=== PATIENT | female | born 1935 | race Caucasian/White ===

== ENCOUNTER 2016-10-17 15:26 | Inpatient (IN) | payer OTHER, MEDICAID ==
--- NOTE | 2016-10-17 15:32 | EDPHY ---
H & P Time Seen by Provider: 10/17/16 15:28 HPI/ROS: CHIEF COMPLAINT: Drooling, slurred speech HISTORY OF PRESENT ILLNESS: The patient is a 80-year-old female with multiple medical problems who presents to the emergency department complaining of drooling and slurred speech. Her symptoms started at 2:30 p.m.. She was sitting on her daughter's couch. She began to have a change in her speech. Patient felt as though she was fine and did not want to come to the hospital. Her daughter insisted. Patient's symptoms have resolved. The patient states her speech is better. Patient denies other complaints. She has no recent falls. No headache or neck pain. No weakness or numbness. Patient states I have had "a lot of strokes." However, she denies any deficits. No recent illnesses. No chest pain or shortness of breath. Patient chronically has a swollen left lower extremity "because of cervical cancer." REVIEW OF SYSTEMS: My complete review of systems is negative except as mentioned in the HPI Past Medical/Surgical History: Includes diabetes, coronary artery disease, recurrent UTI, hypertension, irregular heartbeat, osteoporosis, cervical cancer Past surgical history: Includes aortic valve replacement, CABG, spinal surgery x4, cholecystectomy, appendectomy, hysterectomy, aortic valve replacement Social history: Patient is a former smoker. Smoking Status: Former smoker Physical Exam: Vitals noted GENERAL: Well-appearing, in no acute distress, alert. HEENT: Eyes normal to inspection, normal pharynx, no signs of dehydration. NECK: No thyromegaly, no lymphadenopathy, supple. RESPIRATORY: Clear to auscultation bilaterally, no rales, rhonchi or wheezing. CVS: Regular rate and rhythm, no rubs, or gallops. Patient has a notable murmur. She states she has a murmur baseline. ABDOMEN: Soft, nontender, nondistended, no organomegaly. BACK: Normal to inspection, no CVA tenderness. SKIN: Normal color, no rash, warm, dry. No pallor. EXTREMITIES: patient has left lower extremity pedal edema. (patient states this is at baseline). No calf tenderness, No cords, no joint swelling. NEURO/PSYCH: Normal. Higher functions: Alert and Oriented x3. Normal speech and cognition. Normal mood and affect. Cranial nerves: Normal as tested. Cerebellar: Normal as tested. Good finger to nose, good [id number], normal gait. Peripheral exam: Normal motor exam. Normal sensation. Normal reflexes. Constitutional: Initial Vital Signs Temperature (C) 36.6 C 10/17/16 15:26 Heart Rate 67 10/17/16 15:26 Respiratory Rate 16 10/17/16 15:26 Blood Pressure 155/91 H 10/17/16 15:26 O2 Sat (%) 92 10/17/16 15:26 O2 Delivery Mode Room Air O2 (L/minute) 2 Allergies/Adverse Reactions: codeine [Codeine] Allergy (Intermediate, Verified 10/17/16 15:28) Other-Enter Comments Home Medications: Medication Instructions Recorded Lisinopril [Zestril 5 mg (*)] 5 mg PO DAILY 03/16/15 Carvedilol [Coreg (*)] 6.25 mg PO BIDMEAL 10/17/16 Cephalexin [Keflex (*)] 500 mg PO BID 10/17/16 Herbals/Supplements -Info Only 1 ea PO DAILY 10/17/16 Medical Decision Making - Diagnostics EKG Interpretation: Sinus rhythm at 66. VPC. Normal axis. Normal intervals. Q-wave in II, III, aVF. Flipped T-wave in III. I compared this with a previous EKG from 08/30/2015. It is unchanged. ED Course/Re-evaluation: In the emergency department an IV was placed. Patient had laboratory studies obtained. EKG and head CT were ordered. I discussed the plan with the patient and answered all her questions. CT head: Please refer the dictated report by Dr. Jakub Nunez. No acute disease noted. I discussed the results with the patient. On recheck the patient had no focal neurologic deficits. I discussed case with Dr. Ovalles. The patient will be admitted for further evaluation of her symptoms. Differential Diagnosis: My differential includes but is not limited to ischemic CVA, hemorrhagic CVA, dissection, aneurysm, dysrhythmia, electrolyte abnormality, sugar abnormality, ACS, acute NC - Data Points Laboratory Results: Laboratory Results 10/17/16 15:35 10/17/16 15:35 10/17/16 10/17/16 10/17/16 15:35 15:35 15:35 WBC 6.86 10^3/uL 10^3/uL (3.80-9.50) RBC 4.63 10^6/uL 10^6/uL (4.18-5.33) Hgb 14.7 g/dL g/dL (12.6-16.3) POC Hgb Hct 43.6 % % (38.0-47.0) POC Hct MCV 94.2 fL fL (81.5-99.8) MCH 31.7 pg pg (27.9-34.1) MCHC 33.7 g/dL g/dL (32.4-36.7) RDW 14.1 % % (11.5-15.2) Plt Count 224 10^3/uL 10^3/uL (150-400) MPV 9.1 fL fL (8.7-11.7) Neut % (Auto) 52.1 % % (39.3-74.2) Lymph % (Auto) 37.8 % % (15.0-45.0) Winn % (Auto) 8.0 % % (4.5-13.0) Eos % (Auto) 1.6 % % (0.6-7.6) Baso % (Auto) 0.4 % % (0.3-1.7) Nucleat RBC Rel Count 0.0 % % (0.0-0.2) Absolute Neuts (auto) 3.57 10^3/uL 10^3/uL (1.70-6.50) Absolute Lymphs (auto) 2.59 10^3/uL 10^3/uL (1.00-3.00) Absolute Monos (auto) 0.55 10^3/uL 10^3/uL (0.30-0.80) Absolute Eos (auto) 0.11 10^3/uL 10^3/uL (0.03-0.40) Absolute Basos (auto) 0.03 10^3/uL 10^3/uL (0.02-0.10) Absolute Nucleated RBC 0.00 10^3/uL 10^3/uL (0-0.01) Immature Gran % 0.1 % % (0.0-1.1) Immature Gran # 0.01 10^3/uL 10^3/uL (0.00-0.10) PT 13.5 SEC SEC (12.0-15.0) INR 1.04 (0.83-1.16) APTT 26.7 SEC SEC (23.0-38.0) POC Sodium Sodium 137 mEq/L mEq/L (134-144) POC Potassium Potassium 4.1 mEq/L mEq/L (3.5-5.2) POC Chloride Chloride 102 mEq/L mEq/L (97-110) Carbon Dioxide 25 mEq/l mEq/l (22-31) Anion Gap 10 mEq/L mEq/L (8-16) POC BUN BUN 22 mg/dL mg/dL (7-23) Creatinine 1.0 mg/dL mg/dL (0.6-1.0) POC Creatinine Estimated GFR 54 Glucose 137 mg/dL H mg/dL (70-100) POC Glucose Calcium 9.2 mg/dL mg/dL (8.5-10.4) Troponin I < 0.012 ng/mL ng/mL (0-0.034) 10/17/16 15:31 WBC RBC Hgb POC Hgb 16.0 gm/dL H gm/dL (12.3-15.9) Hct POC Hct 47 % % (35.5-47.5) MCV MCH MCHC RDW Plt Count MPV Neut % (Auto) Lymph % (Auto) Winn % (Auto) Eos % (Auto) Baso % (Auto) Nucleat RBC Rel Count Absolute Neuts (auto) Absolute Lymphs (auto) Absolute Monos (auto) Absolute Eos (auto) Absolute Basos (auto) Absolute Nucleated RBC Immature Gran % Immature Gran # PT INR APTT POC Sodium 140 mEq/L mEq/L (134-144) Sodium POC Potassium 3.9 mEq/L mEq/L (3.3-5.0) Potassium POC Chloride 101 mEq/L mEq/L (96-108) Chloride Carbon Dioxide Anion Gap POC BUN 23 mg/dL mg/dL (7-23) BUN Creatinine POC Creatinine 1.1 mg/dL mg/dL (0.6-1.2) Estimated GFR Glucose POC Glucose 140 mg/dL H mg/dL (70-100) Calcium Troponin I Medications Given: Discontinued Medications Aspirin (Aspirin) 324 mg PO EDNOW ONE Stop: 10/17/16 16:37 Last Admin: 10/17/16 16:48 Dose: 324 mg Point of Care Test Results: 10/17/16 15:31 POC Sodium 140 POC Potassium 3.9 POC Chloride 101 POC BUN 23 POC Creatinine 1.1 POC Glucose 140 H Departure - Departure Disposition: [facility] Inpatient Acute Clinical Impression: Transient cerebral ischemia Qualifiers: Transient cerebral ischemia type: other Qualified Code(s): G45.8 - Other transient cerebral ischemic attacks and related syndromes Condition: Good
--- NOTE | 2016-10-17 15:49 | CPEKG ---
Heart Rate: 66 RR Interval: 909 P-R Interval: 184 QRSD Interval: 102 QT Interval: 440 QTC Interval: 461 P [place]: 55 QRS [place]: 56 T Wave [place]: -37 EKG Severity - ABNORMAL ECG - EKG Impression: SINUS RHYTHM EKG Impression: VENTRICULAR PREMATURE COMPLEX EKG Impression: INFERIOR INFARCT, AGE INDETERMINATE EKG Impression: NONSPECIFIC T ABNORMALITIES, LATERAL LEADS Electronically Signed By: Darinel Amado 17-Oct-2016 19:13:21
[2016-10-17 15:58] LABS: ANION GAP 10 mEq/L (8-16); CALCIUM 9.2 mg/dL (8.5-10.4); CARBON DIOXIDE 25 mEq/l (22-31); CHLORIDE 102 mEq/L (97-110); GLOMERULAR FILTRATION RATE 54; GLUCOSE 137 mg/dL (70-100); POTASSIUM 4.1 mEq/L (3.5-5.2); SODIUM 137 mEq/L (134-144)
[2016-10-17 16:01] LABS: % IMMATURE GRANULYOCYTES 0.1 % (0.0-1.1); ABSOLUTE IMMATURE GRANULOCYTES 0.01 10^3/uL (0.00-0.10); ADD DIFF? NO; ADD MORPH? NO; ADD SCAN? NO; ATYPICAL LYMPHOCYTE FLAG 10 (0-99); FRAGMENT RBC FLAG 0 (0-99); HEMATOCRIT 43.6 % (38.0-47.0); HEMOGLOBIN 14.7 g/dL (12.6-16.3); LEFT SHIFT FLG 0 (0-99); LIPEMIA HEMOLYSIS FLAG 80 (0-99); MEAN CELL HEMOGLOBIN 31.7 pg (27.9-34.1); MEAN CELL HEMOGLOBIN CONCENTR. 33.7 g/dL (32.4-36.7); MEAN CELL VOLUME 94.2 fL (81.5-99.8); MEAN PLATELET VOLUME 9.1 fL (8.7-11.7); PLATELET CLUMPS FLAG 10 (0-99); PLATELET COUNT 224 10^3/uL (150-400); RED BLOOD CELL COUNT 4.63 10^6/uL (4.18-5.33); RED CELL DISTRIBUTION WIDTH 14.1 % (11.5-15.2)
[2016-10-17 16:04] LABS: INR 1.04 (0.83-1.16); PROTIME(PATIENT) 13.5 SEC (12.0-15.0)
[2016-10-17 16:05] LABS: APTT 26.7 SEC (23.0-38.0)
[2016-10-17 16:10] LABS: TROPONIN I < 0.012 ng/mL (0-0.034)
[2016-10-17] MEDS ORDERED: ASPIRIN 81 MG CHEWABLE TAB PO ONE (16:36)
[2016-10-17 18:30] LABS: CHOLESTEROL 200 mg/dL (140-220); CHOLESTEROL/HDL RATIO 3.45 RATIO (1.00-4.44); HIGH DENSITY LIPOPROTEIN 58 mg/dL (40-85); LOW DENSITY LIPOPROTEIN 110 mg/dL (80-100); NON-HIGH DENSITY LIPOPROTEIN 142 mg/dL (90-129); TRIGLYCERIDE 161 mg/dL (35-135); VERY LOW DENSITY LIPOPROTEINS 32 mg/dL (8-25)
[2016-10-17 19:03] LABS: HEMOGLOBIN A1C 6.7 % (4.0-6.0)
--- NOTE | 2016-10-17 19:13 | GHP ---
DATE OF ADMISSION: 10/17/2016 CHIEF COMPLAINT: Problem speaking. HISTORY OF PRESENT ILLNESS: This is a 80-year-old female with prior history of CVA in 2009 as well as a bovine aortic valve replacement in 2010 who presented to the emergency department today after she had trouble speaking at 2:30 this afternoon. Her granddaughter states that the patient was unable to get words out and also was noted to have some drooling out of the left side of her mouth. She was not noted to have any arm or leg weakness. Her symptoms lasted for minutes then self-resolved. She denies any previous episodes like this. Other than her stroke in 2009. She denies having any palpitations. She does not typically take an aspirin at home. She is not on anticoagulation. PAST MEDICAL HISTORY: 1. CVA in 2009. 2. Hypertension. 3. Aortic stenosis. 4. Coronary artery disease. 5. Diabetes. 6. Recurrent urinary tract infections. 7. Cervical cancer. PAST SURGICAL HISTORY: 1. A bovine aortic valve replacement in 2010 and CABG done at that time. 2. L3 vertebral kyphoplasty. 3. L1 kyphoplasty. 4. Cervical cancer resection. HOME MEDICATIONS: Were reviewed. Refer to [employer] for details. ALLERGIES: Codeine. SOCIAL HISTORY: The patient quit smoking in 1996. She denies any alcohol use. She currently lives at [facility] in [facility]. FAMILY HISTORY: Reviewed and noncontributory. REVIEW OF SYSTEMS: Comprehensive 10-point review of systems was done that was negative, except for as mentioned in the HPI and below. : The patient denies any urinary tract complaints such as dysuria or frequency. PHYSICAL EXAM: VITAL SIGNS: Blood pressure 115/96, pulse of 67, respiratory rate 19, O2 saturation 97% on 2 L, temperature afebrile. GENERAL: No acute distress. HEAD: Normocephalic, atraumatic. EYES: PERRLA. Sclerae anicteric. MOUTH: Moist mucous membranes. NECK: Supple. No lymphadenopathy. CARDIOVASCULAR: S1-S2 with systolic murmur. There is no JVD. There is left leg edema right leg is without edema. There are no carotid bruits. PULMONARY: Lungs are clear to auscultation and percussion bilaterally. There are no wheezes, rales, or rhonchi. Normal respiratory effort. ABDOMEN: Soft, nontender, nondistended. No guarding or rebound tenderness. No hepatosplenomegaly. EXTREMITIES: No clubbing or cyanosis. NEURO: Cranial nerves 2-12 grossly intact. Face is symmetric with no asymmetry. Speech is fluent. There is no pronator drift. 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 Muscle strength 5/5 in flexion and extension at the hip and at the foot. SKIN: Clear. No rashes. DIAGNOSTICS: WBC 6.8, hemoglobin 14.7, hematocrit 43.6, platelets 224. Coags were reviewed and unremarkable. Sodium 137, potassium 4.1, chloride 102, CO2 25 , BUN 22, creatinine 1, glucose 137. Troponin was negative. Triglycerides 161 , total cholesterol 200, LDL cholesterol 110, HDL cholesterol 58. Head CT, which I visualized and interpreted, as well as reviewed the radiology report, that showed mild atrophy with no acute hemorrhage, hydrocephalus, or mass effect. There was no evidence for acute infarct. ASSESSMENT AND PLAN: This is a 80-year-old female presenting with: 1. Transient drooling as well as difficulties with speech suspicious for a transient ischemic attack versus mild CVA. However, her symptoms have resolved at the time of my exam. a. Plan: The patient will be placed on observation, where she will be continued on aspirin. An echocardiogram has been ordered to evaluate for cardiac thrombus. We will also obtain a carotid Doppler to evaluate for carotid artery stenosis. She will be monitored on telemetry for arrhythmias. Her LDL is not at goal. Since she is diabetic, I would recommend an LDL of under 100. She will be started on a statin. We will continue aspirin therapy, and I have consulted Neurology to see her in the morning. 2. Reported urinary tract infection diagnosed as an outpatient. a. Plan: Currently, the patient is asymptomatic without any urinary tract symptoms. We will defer starting antibiotics but will reconsider if she developed any fevers, chills, or other signs of urinary tract infection. 3. History of bovine aortic valve replacement and coronary artery disease. a. Plan: Once again, we will obtain an echocardiogram and monitor. 4. History of hypertension. a. Plan: Continue home medications. 5. Unilateral left leg edema (chronic per patient) /[id number]/MODL MTDD
[2016-10-17] MEDS: ATORVASTATIN CALCIUM 20 MG TAB PO SCH (19:39)
[2016-10-17] MEDS ORDERED: guaiFENesin 600 MG TAB.ER PO PRN (23:21)
[2016-10-18] MEDS: ATORVASTATIN CALCIUM 20 MG TAB PO SCH (08:38)
[2016-10-18] MEDS: LISINOPRIL 5 MG TAB PO SCH (08:38)
[2016-10-18] MEDS: CARVEDILOL 6.25 MG TAB PO SCH ×2 (08:38→18:06)
[2016-10-18] MEDS ORDERED: Herbals/Supplements -Info Only PO SCH (09:00)
[2016-10-18] MEDS ORDERED: ASPIRIN 81 MG CHEWABLE TAB PO SCH (09:00)
[2016-10-18] MEDS ORDERED: IOPAMIDOL (ISOVUE-370) 150 ML BTL IV ONE (10:30)
--- NOTE | 2016-10-18 10:51 | HOSPPROG ---
Hospitalist Progress Note Assessment/Plan: TIA - She has had recurrent transient speech symptoms since admission. 70-80% stenosis on right ICA. Discussed case with Dr. Riley, Neurologist. May need vascular surgery consult. -check CTA and MRI -change ASA to Plavix -echo pending ?UTI - denies dysuria, pain or fevers, but does note increased urinary frequency. -check ua and Cx, treat if positive given symptoms Bovine AVR - echo pending CAD - no symptoms. Cont anti-platelet therapy, BB, statin. Hypertension - adequate control, cont Coreg and Lisinopril Full code DVT PPLX - Lovenox Dispo - change to inpt as needs further workup for TIA, transfer to med surg Subjective: Pt feels ok, reports urinary frequency. Also reports recurrent speech difficulty associated with drooling, which her daughter witnessed on 2 more occasions since admission. No fevers/chills. No abdominal pain, N/V. No dysuria. Objective: Vital Signs Temp Pulse Resp BP Pulse Ox 36.3 C 61 17 126/81 H 98 10/18/16 08:00 10/18/16 08:00 10/18/16 08:00 10/18/16 08:00 10/18/16 08:00 PT 13.5 SEC (12.0-15.0) 10/17/16 15:35 INR 1.04 (0.83-1.16) 10/17/16 15:35 - Physical Exam Constitutional: no apparent distress Eyes: PERRL Ears, Nose, Mouth, Throat: moist mucous membranes Cardiovascular: regular rate and rhythym, systolic murmur Respiratory: no respiratory distress, clear to auscultation Gastrointestinal: normoactive bowel sounds, soft, non-tender abdomen Skin: warm Musculoskeletal: full muscle strength Neurologic: AAOx3, CN II-XII Intact, other (no facial droop, pronator drift neg) Psychiatric: interacting appropriately ICD10 Worksheet Patient Problems: Problems Problem Status Onset Transient cerebral ischemia Acute CAD - Coronary arteriosclerosis Active Diabetes mellitus type 2 Active Dyslipidemia Active Essential hypertension Active Low back pain Active Replacement of aortic valve Active Chronic Disease Mgmt/Transitional Care Acute
--- NOTE | 2016-10-18 11:35 | GCON ---
DATE OF CONSULTATION: 10/18/2016 CHIEF COMPLAINT: Transient speech disturbance. HISTORY OF PRESENT ILLNESS: Dr. Barbara Coffey of the hospitalist service consulted Neurology for ev aluation of the patient's speech disturbance. The results of the evaluation were discussed directly with Dr. Coffey. This is a 80-year-old female with a prior history of stroke in 2009, hypertension, aortic stenosis w ith aortic valve replacement with bovine valve and CABG, and diabetes, who reports that on October 17, 2016, she was in her normal state of good health and then in the afternoon she had a few minutes of slurred speech and drooling out of her left mouth. Symptoms resolved. Her daughter witnessed them and brought her to the emergency room. In the emergency room, she had no symptoms and was admitted. Since admission, her daughter reports she has had 2 recurrent episodes of seconds to a minute or s o of speech disturbance and drooling out of her left mouth. The patient states she is generally not aware of these episodes. When I questioned her on what happened with the stroke in 2009, the patie nt states she cannot recall what symptoms she had other than she had a hard time remembering things at that time. She has had no residual symptoms since then. She does state she has been recently no ncompliant with her medications as she felt she was on too many medications and the patient subseque ntly stopped many of them on her own. REVIEW OF SYSTEMS: A 10-point review of systems is negative except for what is stated in the HPI. PAST MEDICAL HISTORY: Stroke in 2009, hypertension, aortic stenosis, coronary artery disease, diabe marielos, recurrent UTIs, cervical cancer. PAST SURGICAL HISTORY: AV bovine replacement and CABG, L1-L3 vertebroplasties. SOCIAL HISTORY: Quit smoking in 1996. FAMILY HISTORY: Noncontributory, daughter is alive. PHYSICAL EXAMINATION: VITAL SIGNS: Blood pressure 126/81, heart rate 61, respirations 17, saturati ng 98% on 2 L nasal cannula. Temperature 36.3 degrees Celsius. GENERAL: No acute distress. EYES: Funduscopic exam: Could not visualize optic discs. LUNGS: Clear to auscultation bilaterally. N o rhonchi or rales. HEART: Regular rate and rhythm. No murmurs. No carotid bruits auscultated. NEUROLOGIC: Mental status: Alert oriented to person, place, and date. Memory, attention, language and fund of knowledge all appear intact. Cranial nerves: Pupils equal, round, react to light. Vi sual kearns full to confrontation. Extraocular muscles intact. Bilateral face: Intact sensation a nd motor movement. Hearing intact to conversation. Uvula raises symmetrically. Tongue protrudes m idline. Traps 5/5 strength. Motor: Normal tone and strength in all 4 extremities. Sensory: All 4 extremities intact to light touch. No neglect. Reflexes: Bilateral brachioradialis 2/4. Coordi nation: Bilateral [id number], [id number] and rapid alternating movements are normal. Gait de ferred. NIH Stroke Scale is 0. Extremities: She has chronic left leg edema. LABORATORY DATA: October 17, 2016: CBC unremarkable. Coagulation panel unremarkable. Chemistry with glucose 140. HbA1c 6.7. LDL 110. RADIOLOGY: October 17, 2016: Head CT shows no acute changes. I personally visualized this study. [facility] 2016: Carotid ultrasound shows a possible proximal right ICA stenosis estimated at 70% to 80 % with no other significant findings. Comments are none. ASSESSMENT: 1. Recurrent transient episodes of minutes of speech disturbance and drooling of the left mouth: S he has had 3 episodes between October 17, 2016 and October 18, 2016. Differential diagnosis is acute conf usional state such as sundowning versus recurrent transient ischemic attacks versus atypical seizure s. I will further evaluate with brain MRI and CT angiogram of the head and neck. 2. Bovine aortic valve replacement, coronary artery disease, CABG. 3. Hypertension. 4. Diabetes. 5. Possible right carotid internal carotid artery stenosis of 70% to 80%. RECOMMENDATIONS: 1. Transfer to neurology floor given recurrent episodes of speech disturbance. 2. CT angiogram of the head and neck. 3. Brain MRI without contrast. 4. Transthoracic echocardiogram. 5. 24-hour telemetry looking for new paroxysmal atrial fibrillation. 6. Change aspirin 81 mg which is used on the outpatient setting to Plavix [address] roke protection. 7. HbA1c goal less than 7.0, currently 6.7. 8. LDL goal less than 70, currently 110, so we will begin Lipitor 20 mg daily. 9. Blood pressure goal less than 140/90 at this time as no stroke has been confirmed. Neurology service will continue to watch closely. /[id number]/MODL
--- NOTE | 2016-10-18 12:09 | ECHO ---
[id number] + + [address] : : [place] [address] : : [phone] + + Adult Echocardiographic Report + ---+ :Name: JEFFREY EMERY Antonietanaye Date: 10/18/2016 11:29 AM : : Hospital Admission Number: [id number] : :: 1935 Gender: Female Height: 60 in : :Age: 80 yrs Race: WH Weight: 201 l b : :Reason For Study: H/O bovine AVR presenting with TIA symptoms : : BSA: 1.9 mete rs2: + ---+ MMode/2D Measurements \T\ Calculations IVSd: 0.59 cm LVIDd: 5.1 cm FS: 28.5 % Ao root diam: 2.8 cm LVPWd: 0.93 cm LVIDs: 3.6 cm EDV(Teich): 123.2 ml LA dimension: 5.0 cm ESV(Teich): 55.9 ml EF(Teich): 54.6 % Normal Measurement Values: + + :LVIDd (3.5-5.7cm) IVSd (0.6-1.1cm) LVPWd (0.6-1.1cm) Aortic Root (2.0-3.7cm)Left Atrium (1.5-4.0cm): :LV Vol(d) (76-115ml) LV Vol(s) (29-48ml) Ejec Fraction (50-65%)PV Navin (0.6- 1.2m/s) TV Navin (0.4-1.0m/s) : :MV E Navin (0.8-1.0m/s)MV A Navin (0.3-1.0m/s)LVOT Navin (0.7-1.2m/s) Asc Ao Navin ( 0.9-1.8m/s) : + + Doppler Measurements \T\ Calculations MV E max navin: 116.0 cm/sec Ao V2 max: 325.0 cm/sec TR max navin: 182.0 cm/sec MV A max navin: 76.5 cm/sec Ao max P.3 mmHg TR max P.2 mmHg MV E/A: 1.5 Ao mean P.5 mmHg RAP systole: 5.0 mmHg Ao V2 mean: 221.0 cm/secRVSP(TR): 18.2 mmHg Ao V2 VTI: 76.0 cm Left Ventricle The left ventricle is normal in size. There is normal left ventricular wall thickness. Ejection Fraction = 60-65%. There is Doppler evidence for diastolic dysfunction. 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 Right Ventricle The right ventricle is normal in size and function. Atria The left atrium is moderately dilated. Right atrial size is normal. The interatrial septum is intact with no evidence for an atrial septal defect. Mitral Valve The mitral valve is normal in structure and function. There is no evidence of mitral valve prolapse. There is no mitral valve stenosis. There is mild mitral regurgitation. Tricuspid Valve Normal tricuspid valve. There is mild tricuspid regurgitation. Aortic Valve There is a bioprosthetic aortic valve. AV max PG is 42mmHG. AV mean PG is 22mmHG. Pulmonic Valve The pulmonic valve is not well visualized. There is no pulmonic valvular regurgitation. Great Vessels The aortic root is normal size. Pericardium/Pleural There is no pericardial effusion. Conclusion A complete two-dimensional transthoracic echocardiogram was performed (2D, M-mode, Doppler and color flow Doppler). There is no comparison study available. 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 Ejection Fraction = 60-65%. There is Doppler evidence for diastolic dysfunction. The left atrium is moderately dilated. There is mild mitral regurgitation. There is mild tricuspid regurgitation. There is a bioprosthetic aortic valve. AV max PG is 42mmHG. AV mean PG is 22mmHG. Final Reading Physician: Christianne Bojorquez signed on 10/18/2016 12:08 PM Ordering Physician: Hi Mccullough Performed By: Cayla Olson RDCS
[2016-10-18 13:07] LABS: COLOR YELLOW; LEUKOCYTE ESTERASE,URINE 3+ (NEGATIVE); NITRITE,URINE POSITIVE (NEGATIVE)
[2016-10-18 13:24] LABS: BACTERIA 4+ /hpf (NONE SEEN); RBC,URINE 50-182 /hpf (0-3); WBC,URINE 50-182 /hpf (0-3)
[2016-10-18] MEDS ORDERED: HEPARIN 10,000 UNIT/10 ML MDV IVP ONE (15:53)
[2016-10-18] MEDS ORDERED: HEPARIN 10,000 UNIT/10 ML MDV IVP PRN (15:53)
[2016-10-18 17:37] LABS: % IMMATURE GRANULYOCYTES 0.2 % (0.0-1.1); ABSOLUTE IMMATURE GRANULOCYTES 0.01 10^3/uL (0.00-0.10); ADD DIFF? NO; ADD MORPH? NO; ADD SCAN? NO; ATYPICAL LYMPHOCYTE FLAG 20 (0-99); FRAGMENT RBC FLAG 0 (0-99); HEMATOCRIT 43.4 % (38.0-47.0); HEMOGLOBIN 14.3 g/dL (12.6-16.3); LEFT SHIFT FLG 0 (0-99); LIPEMIA HEMOLYSIS FLAG 80 (0-99); MEAN CELL HEMOGLOBIN 31.7 pg (27.9-34.1); MEAN CELL HEMOGLOBIN CONCENTR. 32.9 g/dL (32.4-36.7); MEAN CELL VOLUME 96.2 fL (81.5-99.8); MEAN PLATELET VOLUME 9.4 fL (8.7-11.7); PLATELET CLUMPS FLAG 20 (0-99); PLATELET COUNT 225 10^3/uL (150-400); RED BLOOD CELL COUNT 4.51 10^6/uL (4.18-5.33); RED CELL DISTRIBUTION WIDTH 14.1 % (11.5-15.2)
[2016-10-18] MEDS: HEPARIN/DEXTROSE 500 ML IV SCH (17:41)
[2016-10-18 17:52] LABS: INR 1.01 (0.83-1.16); PROTIME(PATIENT) 13.2 SEC (12.0-15.0)
[2016-10-18 17:53] LABS: APTT 26.9 SEC (23.0-38.0)
[2016-10-18] MEDS: ASPIRIN 325 MG TAB PO SCH (21:03)
--- NOTE | 2016-10-18 21:36 | GCON ---
GENERAL SURGERY CONSULTATION DATE OF CONSULTATION: 10/18/2016 HISTORY OF PRESENT ILLNESS: A 80-year-old female with recurrent TIAs and a significant right caroti d stenosis of 95% plus. 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 MRI reveals bi lateral defects and she has been having recurrent TIAs with slurring of her speech. I was consulted for carotid endarterectomy evaluation. She is an old patient of mine and is well-known to me. PAST MEDICAL HISTORY: Includes cholecystectomy, exploratory laparotomy, multiple back surgeries. PHYSICAL EXAMINATION: GENERAL: Reveals an alert, cooperative, 80-year-old female, in no acute dist ress. HEAD AND NECK: Reveals a right carotid bruit. CHEST: Clear. CARDIAC: Regular rhythm. AB DOMEN: Soft. EXTREMITIES: Bilateral full pulses. NEUROLOGIC: Symmetric at this point. IMPRESSION: Critical right carotid stenosis. RECOMMENDATIONS: Continue heparinization and initiation of aspirin therapy and carotid endarterecto my on the right side. She may possibly need a similar procedure on the left side for her torturous artery, although it is only 50% stenotic on the left. Risks and options were fully discussed with t kristen patient. I will plan on carotid endarterectomy on Thursday after cardiac clearance and continued h eparinization. /[id number]/MODL
[2016-10-19] MEDS: ATORVASTATIN CALCIUM 20 MG TAB PO SCH (07:52)
[2016-10-19] MEDS: LISINOPRIL 5 MG TAB PO SCH (07:53)
[2016-10-19] MEDS: CARVEDILOL 6.25 MG TAB PO SCH ×2 (07:53→18:26)
[2016-10-19] MEDS: ASPIRIN 325 MG TAB PO SCH (07:53)
[2016-10-19] MEDS ORDERED: ASPIRIN 81 MG CHEWABLE TAB PO SCH (09:00)
[2016-10-19] MEDS ORDERED: CLOPIDOGREL BISULFATE 75 MG TAB PO SCH (09:00)
[2016-10-19] MEDS: HEPARIN/DEXTROSE 500 ML IV SCH (10:18)
--- NOTE | 2016-10-19 11:52 | GCON ---
CARDIAC CONSULTATION DATE OF CONSULTATION: 10/19/2016 CHIEF COMPLAINT: Patient needs presurgical clearance for right carotid endarterectomy, known patien t of Dr. Trevon Matute with cardiac and valvular heart disease. HPI: This is a 80-year-old female who has a history of CVA in 2009 who, in 2010, apparently had a b ovine aortic valve replacement, a mitral valve repair, 2-vessel coronary bypass grafting, and a MAZE procedure. She apparently did well, was on Coumadin short-term afterward, and has been followed by Dr. Matute. Her last visit with him was last May 2016. She was doing fairly well. She is on aspirin 1 daily with a [id number] of 4. She was admitted on October 17 with difficulty speaking. Workup showed a CVA and subsequent workup showed a significant right carotid stenosis, as well as a moderate left carotid stenosis. However, she had embolic bilateral phenomena in both her brain pola spheres. An echocardiogram shows that her bioprosthetic valve appears to be normally functioning, n o new wall motion abnormalities, normal EF. In speaking to the daughter, confirmed by the patient, she has no PND, orthopnea, chest pain, palpitations, syncope. She apparently did not have any probl ems with prior coumadinization as well. A long talk with her, her daughter, and with Dr. Riley, who was in the room at that time. At this point, I recommend anticoagulation with Coumadin for possible paroxysmal atrial fibrillation, which is asymptomatic. She is comfortable with this approach. We did speak about possibly doing a LINQ to confirm atrial fibrillation or other arrhythmias, although this can be further discussed with Dr. Matute as an outpatient. Additionally, at this point there i s no history to suggest subacute bacterial endocarditis. I do not have old valvular echoes for revi ew at this time. However, I did speak to the daughter and the patient about possibly getting a SALUD as an outpatient down the line if needed; however, at this point I do not think it is an acute need. From a surgical standpoint, she should have intended risk of her age with her underlying comorbidi ties, which should be mild to moderate. She does not have any high risk indices, such as syncope, C HF, or recent myocardial infarction. PAST MEDICAL HISTORY: Includes CVA, hypertension, aortic stenosis, coronary artery disease, diabete s, cervical cancer. PAST SURGICAL HISTORY: As noted above. MEDICATIONS ON ADMISSION: Included lisinopril, cephalexin ,and Coreg. Now she is on aspirin, atorv astatin, Coreg, heparin, lisinopril. LABS: Hemoglobin of 14. Potassium 4.1, creatinine 1.02. Troponins negative. IMAGING: Admission EKG : Normal sinus rhythm with small inferior Q-waves, no arrhythmias. ASSESSMENT: 1. Recent cerebrovascular accident. Patient has multiple possibilities. Clearly, she has a right c arotid stenosis which is significant and will need surgical intervention by Dr. Kelly. At this poin t, I think she is low to moderate risk. She has no high risk indices. This was discussed with the grace espinoza and her mom, and she agrees to progress with surgery. I do think that long-term coumadiniza tion would be in her best interest. Whether or not she could be followed or need a LINQ monitor can be discussed as an outpatient with her rehabilitation attendant, Dr. Matute, but at least in the near term, judy g-term anticoagulation she had been on was after her valve surgery without issues. She denies any o ngoing fever, chills, nausea, vomiting, CHF, palpitations, syncope. 2. Patient has a stable echocardiogram with normal EF and a posterior basal akinetic area. 3. Bioprosthetic aortic valve with a mean gradient of 22. No history consistent with endocarditis. Consider outpatient SALUD and this can be further discussed with Dr. Matute as an outpatient. At th is time, I do not think it is urgent, but it may be reasonable to take a look at this valve to see i f there are any possible small sources of TIA emboli. The valve does not appear to be having any per ivalvular leaks and has a mean gradient of 22. 4. Paroxysmal atrial fibrillation, status post MAZE, [id number] 4. Once again, recommend Coumadi n anticoagulation at this time with possible changes to be discussed with Dr. Matute and possible LI NQ monitoring, although her [id number] score is 4 with CVAs. My recommendation would be long-term anticoagulation unless she has side affects. Case was discussed with Dr. Riley, the patient, and her daughter. Questions were answered. Further care depending on results of her clinical course. /[id number]/MODL
--- NOTE | 2016-10-19 13:28 | NEUROPROG ---
Assessment: CC: stroke HPI: This is a 80-year-old female with a prior history of stroke in 2009, hypertension, aortic stenosis with aortic valve replacement with bovine valve and CABG, and diabetes, who reports that on October 17, 2016, she was in her normal state of good health and then in the afternoon she had a few minutes of slurred speech and drooling out of her left mouth. Symptoms resolved. Her daughter witnessed them and brought her to the emergency room. In the emergency room, she had no symptoms and was admitted. Since admission, her daughter reports she has had 2 recurrent episodes of seconds to a minute or so of speech disturbance and drooling out of her left mouth. The patient states she is generally not aware of these episodes. When I questioned her on what happened with the stroke in 2009, the patient states she cannot recall what symptoms she had other than she had a hard time remembering things at that time. She has had no residual symptoms since then. She does state she has been recently noncompliant with her medications as she felt she was on too many medications and the patient subsequently stopped many of them on her own. PN: 10/19/16- Brain MRI showed small cortical strokes primarily in right frontal ICA distribution but also a small cortical stroke in left frontal region suggesting possible cardio-embolic source. CTA showed severe R ICA stenosis so Gen Surgery saw and will do CEA tomorrow to address. Pt placed on hep gtt and aspirin continued until surgery to prevent total occlusion. Also noted distal R ICA stenosis and MCA stenosis as well as left ICA 50% stenosis. Cardiology saw and found ABRAN score 4 so recommended anti-coagulation orally at this time and at hosp discharge and then re-eval long-term oral anti-coag need long-term at 1 month outpatient cards f/u. PMHx: Stroke in 2009, hypertension, aortic stenosis, coronary artery disease, diabetes, recurrent UTIs, cervical cancer. PSHx: AV bovine replacement and CABG, L1-L3 vertebroplasties. SHx: Quit smoking in 1996. FHx: daughter is alive. O: 10/18/16- NIH SS 0 Lab: October 17, 2016: HbA1c 6.7. LDL 110. Rads: 10/18/16- Brain MRI w/o con: cortical, small strokes primarily in R ICA distribution but one in left frontal region as well 10/18/16- CTA Head/Neck: severe R ICA stenosis, 50% L ICA stenosis, distal R ICA stenosis, R MCA stenosis 10/18/16- 24 hour telemetry: no afib seen Assessment: 1. Embolic Stroke Pattern Primarily in R ICA distribution but a single left frontal cortical stroke causing transient speech disturbance (resolved): Likely known R severe ICA stenosis is cause of emoblic shower with possible emboli traveling across TISHA to cause left frontal stroke. Possibly also a cardio- embolic source (known valve surgery) or concurrent symptomatic L ICA stenosis. 2. Severe R ICA stenosis 3. Left 50% ICA stenosis 4. Intra-cranial distal R ICA and R MCA stenosis 5. AV bovine wilber, prior CABG 6. DM 7. HTN Recs: - TTE pending - Stop Plavix and begin Heparin gtt and then convert to oral anti-coagulation at discharge (per Cards recs given she is ABRAN 4 and has possible cardio- embolic stroke source), re-eval need for oral anti-coag 1 month after discharge with primary car hiker Dr. Matute - Right CEA tomorrow with Dr. Kelly, he recommends concurrent aspirin at this time with heparin - Outpatient f/u with Dr. Kelly to consider Left CEA surgery - Blood pressure goal < 220/120 x 24 hours or per surgical recs from Dr. Kelly - LDL goal < 70 (110), Lipitor 20mg started in hospital - H1AC < 7.0 (6.7) - Outpatient f/u in neurology clinic 5 weeks after discharge Neurology service will continue to watch closely. 35 min spent with patient and her daughter, majority of time spent counseling on stroke prevention. Objective: Vital Signs Temp Pulse Resp BP Pulse Ox 36.2 C 62 18 151/83 H 94 10/19/16 12:00 10/19/16 12:00 10/19/16 12:00 10/19/16 12:00 10/19/16 12:00 Laboratory Results 10/18/16 17:10 10/18/16 10/19/16 10/20/16 05:59 05:59 05:59 Intake Total 1000.4 Balance 1000.4 PT 13.2 SEC (12.0-15.0) 10/18/16 17:10 INR 1.01 (0.83-1.16) 10/18/16 17:10 Allergies/Adverse Reactions: codeine [Codeine] Allergy (Intermediate, Verified 10/17/16 15:28) Other-Enter Comments
[2016-10-19] MEDS: ACETAMINOPHEN 500 MG TAB PO PRN (20:09)
--- NOTE | 2016-10-19 20:32 | HOSPPROG ---
Hospitalist Progress Note Assessment/Plan: Embolic CVA - B/L infarcts. She has had recurrent transient speech symptoms since admission. CTA revealed 99% right ICA stenosis. She also has a bovine AVR and h/o paroxysmal A fib. -cont heparin, ASA, statin -endarterectomy for right ICA tomorrow am, consider repair of left ICA as outpt per Dr. Kelly -will need long-term anti-coagulation -consider LINQ monitor -appreciate neurology, cards, surgical assistance UTI - denies dysuria, pain or fevers, but does note increased urinary frequency and Cx growing GNR's -cont levaquin, await Cx and sensitivities Bovine AVR - echo reviewed with Cardiology, may need SALUD CAD - no symptoms. Cont anti-platelet therapy, BB, statin. Hypertension - coreg, lisinopril Full code DVT PPLX - Heparin Dispo - cont inpt Subjective: Pt doing okay. Spirits are good. She continues to have intermittent slurred speech. No CP or SOB. No palpitations, no events on tele. Objective: Vital Signs Temp Pulse Resp BP Pulse Ox 36.4 C 62 18 118/46 L 92 10/19/16 19:22 10/19/16 19:22 10/19/16 19:22 10/19/16 19:22 10/19/16 19:22 Laboratory Results 10/18/16 17:10 10/18/16 10/19/16 10/20/16 05:59 05:59 05:59 Intake Total 1000.4 Balance 1000.4 PT 13.2 SEC (12.0-15.0) 10/18/16 17:10 INR 1.01 (0.83-1.16) 10/18/16 17:10 - Physical Exam Constitutional: no apparent distress, not in pain Eyes: PERRL Ears, Nose, Mouth, Throat: moist mucous membranes Cardiovascular: regular rate and rhythym Respiratory: no respiratory distress, clear to auscultation Gastrointestinal: normoactive bowel sounds, soft, non-tender abdomen Skin: warm Musculoskeletal: full muscle strength Neurologic: AAOx3 Psychiatric: interacting appropriately ICD10 Worksheet Patient Problems: Problems Problem Status Onset Transient cerebral ischemia Acute CAD - Coronary arteriosclerosis Active Diabetes mellitus type 2 Active Dyslipidemia Active Essential hypertension Active Low back pain Active Replacement of aortic valve Active Chronic Disease Mgmt/Transitional Care Acute
[2016-10-20] MEDS: ACETAMINOPHEN 500 MG TAB PO PRN (03:21)
[2016-10-20] MEDS: HEPARIN/DEXTROSE 500 ML IV SCH (06:23)
[2016-10-20] MEDS ORDERED: ceFAZolin 2 GM/DEXTROSE 100 ML IV ONE (07:37)
[2016-10-20] MEDS: ASPIRIN 325 MG TAB PO SCH (07:50)
[2016-10-20] MEDS: ATORVASTATIN CALCIUM 20 MG TAB PO SCH (07:50)
[2016-10-20] MEDS: LISINOPRIL 5 MG TAB PO SCH (08:25)
[2016-10-20] MEDS: CARVEDILOL 6.25 MG TAB PO SCH ×3 (08:26→19:33)
[2016-10-20] MEDS ORDERED: SKIN ADHESIVE (DERMABOND) 1 EACH TP ONE (08:52)
[2016-10-20] MEDS ORDERED: PROTAMINE SULFATE 50 MG/5 ML VIAL IVP ONE (08:53)
[2016-10-20] MEDS ORDERED: THROMBIN (RECOMBINANT) 20,000 UNIT SPRAY TP ONE (08:53)
[2016-10-20] MEDS ORDERED: BUPIVACAINE 0.5% 30 ML SDV ONE (08:53)
--- NOTE | 2016-10-20 09:19 | NEUROPROG ---
Assessment: INTERVAL HISTORY: 10/20/16: Assuming care from Dr. Riley. Daughter at bedside. Patient states she continues to have waxing/waning slurred speech, corroborated by daughter. No new neurologic symptoms including weakness, sensory loss, visual disturbance, language disturbance. No VILLAFUERTE. EXAM: VS reviewed in EMR NIHSS 0 MS: awake, alert, oriented to all spheres. Speech nondysarthric. No language disturbance. Follows commands. Attends to both sides. CN: pupils 3mm round reactive. VFF. Primary gaze centered. Full ocular motility, but smooth pursuit with saccadic intrusions. Facial sensation preserved. Face symmetric. Palatoglossal movements intact. MOTOR: normal bulk/tone. No abnormal movements. Full power. SENSORY: intact LT/PP throughout and no extinction COORD: no ataxia FN/HS. REFLEX: plantars down. No clonus. Trace DTRS. GAIT: deferred to PT safety eval DATA: Labs, imaging and physiologic data reviewed in EMR IMPRESSION AND RECOMMENDATIONS: // ACUTE ISCHEMIC STROKE // TRELL STENOSIS - NEAR OCCLUSION // LICA STENOSIS // PAROXYSMAL AFIB // BIOPROSTHETIC AVR Patient with embolic anterior circulation ischemic strokes on MRI in the right hemisphere, though there is a single punctate focus of acute ischemic in the left posterior frontal juxtacortical region. The bihemispheric nature certainly invokes a sense of proximal embolization. However, the possibility remains for TRELL embolization with contralateral embolization to the left hemisphere via the anterior communicating artery. Regardless, she is going to be optimized from a stroke perspective for both causes. Cont close neurosurveillance Cont heparin gtt and ASA per vascular surgery Goal normotension LDL goal < 70 - adjust statin as needed Normoglycemia with goal A1c < 6.5 Right CEA today with Dr. 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 Stroke education Will need therapeutic anticoagulation long-term for afib/stroke prevention - start when deemed safe post-op Will continue to follow post-op Objective: Vital Signs Temp Pulse Resp BP Pulse Ox 36.5 C 56 L 15 112/79 93 10/20/16 07:20 10/20/16 08:26 10/20/16 07:20 10/20/16 08:26 10/20/16 07:20 Microbiology 10/18/16 13:18 Urine Culture - Final Urine,Clean Catch Escherichia Coli Laboratory Results 10/20/16 04:55 10/19/16 10/20/16 10/21/16 05:59 05:59 05:59 Intake Total 1000.4 606 Balance 1000.4 606 PT 13.2 SEC (12.0-15.0) 10/18/16 17:10 INR 1.01 (0.83-1.16) 10/18/16 17:10 Allergies/Adverse Reactions: codeine [Codeine] Allergy (Intermediate, Verified 10/17/16 15:28) Other-Enter Comments
[2016-10-20] MEDS ORDERED: CEFAZOLIN 2 GM/DEXTROSE/100 ML BAG IV ONE (10:41)
[2016-10-20] MEDS ORDERED: fentaNYL 250 MCG/5 ML INJ ONE (11:38)
[2016-10-20] MEDS ORDERED: PROPOFOL 200 MG/20 ML VIAL ONE (11:38)
[2016-10-20] MEDS ORDERED: DEXAMETHASONE 4 MG/ML VIAL ONE (11:38)
[2016-10-20] MEDS ORDERED: ONDANSETRON 4 MG/2 ML VIAL ONE (11:38)
[2016-10-20] MEDS ORDERED: ROCURONIUM 50 MG/5 ML VIAL ONE (11:38)
[2016-10-20] MEDS ORDERED: LIDOCAINE 2% 100 MG/5 ML SYR IVP ONE (11:38)
[2016-10-20] MEDS ORDERED: MIDAZOLAM 2 MG/2 ML VIAL ONE (12:57)
[2016-10-20] MEDS ORDERED: PHENYLEPHRINE HCL 100 MCG/ML SYR ONE (13:20)
--- NOTE | 2016-10-20 15:00 | POSTOPPROG ---
Post Op Note Date of Operation: 10/20/16 Surgeon: Fabiano Kelly Fishery Biologist: TALIA Anesthesiologist: MUSA Anesthesia: GET(General Endotracheal) Pre-op Diagnosis: TIA/ CRITICAL RT CAROTID STENOSIS Post-op Diagnosis: SAME Indication: RECURRENT TIAS Procedure: RT CAROTID ENDARTERECTOMY WITH EEG MONITOR/ CERVICAL LYMPH NODE EXCISION Findings: 99% ORIGIN STENOSIS WITH CALCIFIED PLAQUE/ NO EEG CHANGES Inf/Abcess present in the surg proc area at time of surgery?: No Depth: Organ Space EBL: Minimal Complications: 0 Specimen(s): PLAQUE AND LYMPH NODES
[2016-10-20] MEDS ORDERED: ONDANSETRON 4 MG/2 ML VIAL IVP PRN (15:04)
[2016-10-20] MEDS ORDERED: OXYCODONE/APAP 5/325 TAB PO PRN (15:04)
[2016-10-20] MEDS ORDERED: HYDROmorphONE/DILAUDID 1 MG/ML SYR IVP PRN (15:04)
[2016-10-20] MEDS ORDERED: D5W 1/2 NS W/ 20 KCl/L 1,000 ML IV SCH (15:15)
[2016-10-20] MEDS ORDERED: PROMETHAZINE HCL 25 MG/ML INJ ONE (15:50)
--- NOTE | 2016-10-20 18:25 | HOSPPROG ---
Hospitalist Progress Note Assessment/Plan: Missed visit. Pt in OR all afternoon. Embolic CVA - B/L infarcts. She has had recurrent transient speech symptoms since admission. CTA revealed 99% right ICA stenosis. She also has a bovine AVR and h/o paroxysmal A fib. POD #0 from right carotid endarterectomy -resume heparin, ASA when ok with surgery team -will need long-term anti-coagulation -consider LINQ monitor -appreciate neurology, cards, surgical assistance UTI - denies dysuria, pain or fevers, but does note increased urinary frequency and Cx growing GNR's -cont levaquin Bovine AVR - echo reviewed with Cardiology, may need SALUD CAD - no symptoms. Cont anti-platelet therapy, BB, statin. Hypertension - coreg, lisinopril Full code DVT PPLX - Heparin Dispo - cont inpt Objective: Vital Signs Temp Pulse Resp BP Pulse Ox 36.6 C 64 18 138/63 H 86 L 10/20/16 17:30 10/20/16 17:30 10/20/16 17:30 10/20/16 17:30 10/20/16 17:30 Microbiology 10/18/16 13:18 Urine Culture - Final Urine,Clean Catch Escherichia Coli Laboratory Results 10/20/16 04:55 10/19/16 10/20/16 10/21/16 05:59 05:59 05:59 Intake Total 1000.4 606 2900 Output Total 305 Balance 1000.4 606 2595 PT 13.2 SEC (12.0-15.0) 10/18/16 17:10 INR 1.01 (0.83-1.16) 10/18/16 17:10 ICD10 Worksheet Patient Problems: Problems Problem Status Onset Transient cerebral ischemia Acute CAD - Coronary arteriosclerosis Active Diabetes mellitus type 2 Active Dyslipidemia Active Essential hypertension Active Low back pain Active Replacement of aortic valve Active Chronic Disease Mgmt/Transitional Care Acute
--- NOTE | 2016-10-20 19:06 | SOAPPROG ---
SOAP Progress Note Assessment/Plan: Assessment: POSTOP OK/ NEURO INTACT Plan: PER ORDERS 10/20/16 19:05 Objective: Vital Signs Temp Pulse Resp BP Pulse Ox 36.6 C 64 18 138/63 H 86 L 10/20/16 17:30 10/20/16 17:30 10/20/16 17:30 10/20/16 17:30 10/20/16 17:30 Microbiology 10/18/16 13:18 Urine Culture - Final Urine,Clean Catch Escherichia Coli Laboratory Results 10/20/16 04:55 10/19/16 10/20/16 10/21/16 05:59 05:59 05:59 Intake Total 1000.4 606 2900 Output Total 305 Balance 1000.4 606 2595 PT 13.2 SEC (12.0-15.0) 10/18/16 17:10 INR 1.01 (0.83-1.16) 10/18/16 17:10 ICD10 Worksheet Patient Problems: Problems Problem Status Onset Transient cerebral ischemia Acute CAD - Coronary arteriosclerosis Active Diabetes mellitus type 2 Active Dyslipidemia Active Essential hypertension Active Low back pain Active Replacement of aortic valve Active Chronic Disease [facility]/Transitional Care Acute
[2016-10-20] MEDS ORDERED: methylPREDNISolone SOD SUCC 125 MG/2 ML VIAL IVP ONE (22:00)
[2016-10-21] MEDS ORDERED: FUROSEMIDE 20 MG/2 ML VIAL IV ONE (00:15)
[2016-10-21] MEDS ORDERED: FUROSEMIDE 20 MG/2 ML VIAL ONE (00:15)
--- NOTE | 2016-10-21 00:34 | SOAPPROG ---
SOAP Progress Note Assessment/Plan: Assessment: POSTOP OK/ NEURO INTACT Plan: PER ORDERS 10/20/16 19:05 10/21/16 00:27 CALLED INTO SEE PT FOR SWOLLEN TONGUE/ VERY THICK AND EDEMATOUS ON DISTAL THIRD VOICE OK EXCEPT FOR TONGUE THICKNESS/ NECK SOFT, NOT SWOLLEN, NO BLEEDING/ O2 SATS GOOD/ NEURO COMPLETELY INTACT NOT IMPROVED WITH SOLUMEDROL SO FAR PER NURSES ? ALLERGIC REACTION TO PHENERGAN/ NO REPORTED INTUBATION DIFFICULTY/ NO OBVIOUS DIRECT TRAUMA/ NO NECK OR PHAARYNGEAL SWELLING PLAN BENADRYL, ZANTAC, TKO IV, LASIX, HEAD ELEVATION/ NPO/ TRACH IF NEEDED Objective: Vital Signs Temp Pulse Resp BP Pulse Ox 36.7 C 65 18 137/66 H 97 10/20/16 19:00 10/20/16 21:59 10/20/16 21:59 10/20/16 21:59 10/20/16 21:59 Microbiology 10/18/16 13:18 Urine Culture - Final Urine,Clean Catch Escherichia Coli Laboratory Results 10/20/16 04:55 10/19/16 10/20/16 10/21/16 05:59 05:59 05:59 Intake Total 1000.4 606 2900 Output Total 485 Balance 1000.4 606 2415 PT 13.2 SEC (12.0-15.0) 10/18/16 17:10 INR 1.01 (0.83-1.16) 10/18/16 17:10 ICD10 Worksheet Patient Problems: Problems Problem Status Onset Transient cerebral ischemia Acute CAD - Coronary arteriosclerosis Active Diabetes mellitus type 2 Active Dyslipidemia Active Essential hypertension Active Low back pain Active Replacement of aortic valve Active Chronic Disease [facility]/Transitional Care Acute
[2016-10-21] MEDS ORDERED: D5W 1/2 NS W/ 20 KCl/L 1,000 ML IV SCH (00:45)
[2016-10-21] MEDS: methylPREDNISolone SOD SUCC 40 MG/ML VIAL IVP SCH ×3 (06:12→21:14)
[2016-10-21] MEDS: RANITIDINE 50 MG/2 ML VIAL IVP SCH ×3 (06:13→21:15)
--- NOTE | 2016-10-21 08:19 | SOAPPROG ---
SOAP Progress Note Assessment/Plan: Assessment: POSTOP OK/ NEURO INTACT Plan: PER ORDERS 10/20/16 19:05 10/21/16 00:27 CALLED INTO SEE PT FOR SWOLLEN TONGUE/ VERY THICK AND EDEMATOUS ON DISTAL THIRD VOICE OK EXCEPT FOR TONGUE THICKNESS/ NECK SOFT, NOT SWOLLEN, NO BLEEDING/ O2 SATS GOOD/ NEURO COMPLETELY INTACT NOT IMPROVED WITH SOLUMEDROL SO FAR PER NURSES ? ALLERGIC REACTION TO PHENERGAN/ NO REPORTED INTUBATION DIFFICULTY/ NO OBVIOUS DIRECT TRAUMA/ NO NECK OR PHAARYNGEAL SWELLING PLAN BENADRYL, ZANTAC, TKO IV, LASIX, HEAD ELEVATION/ NPO/ TRACH IF NEEDED 10/21/16 08:17 ALERT/ VS OK/ NEURO INTACT/ TONGUE SWELLING IMPROVED/ WOUND OK/ NO NEW ISSUES / PLAN OBS Objective: Vital Signs Temp Pulse Resp BP Pulse Ox 36.7 C 60 18 140/65 H 95 10/20/16 19:00 10/21/16 07:00 10/21/16 07:00 10/21/16 07:00 10/21/16 07:00 Microbiology 10/18/16 13:18 Urine Culture - Final Urine,Clean Catch Escherichia Coli Laboratory Results 10/20/16 04:55 10/20/16 10/21/16 10/22/16 05:59 05:59 05:59 Intake Total 606 3200 Output Total 3085 Balance 606 115 PT 13.2 SEC (12.0-15.0) 10/18/16 17:10 INR 1.01 (0.83-1.16) 10/18/16 17:10 ICD10 Worksheet Patient Problems: Problems Problem Status Onset Transient cerebral ischemia Acute CAD - Coronary arteriosclerosis Active Diabetes mellitus type 2 Active Dyslipidemia Active Essential hypertension Active Low back pain Active Replacement of aortic valve Active Chronic Disease [facility]/Transitional Care Acute
--- NOTE | 2016-10-21 08:42 | NEUROPROG ---
Assessment: INTERVAL HISTORY: 10/21: Patient underwent right CEA yesterday afternoon. Noted to have tongue swelling post-op without respiratory compromise - ? promethazine reaction. She is otherwise doing well from a neurologic perspective without any new deficits. 10/20/16: Assuming care from Dr. Riley. Daughter at bedside. Patient states she continues to have waxing/waning slurred speech, corroborated by daughter. No new neurologic symptoms including weakness, sensory loss, visual disturbance, language disturbance. No VILLAFUERTE. EXAM: VS reviewed in EMR NIHSS 1 (dysarthria - tongue swelling) HEENT: tongue is swollen, right neck incision is dressed, no neck swelling/ redness/tenderness MS: awake, alert, oriented to all spheres. Speech with lingual dysarthria ( tongue swelling) No language disturbance. Follows commands. Attends to both sides. CN: pupils 3mm round reactive. VFF. Primary gaze centered. Full ocular motility, but smooth pursuit with saccadic intrusions. Facial sensation preserved. Face symmetric. Palatoglossal movements intact. MOTOR: normal bulk/tone. No abnormal movements. Full power. SENSORY: intact LT/PP throughout and no extinction COORD: no ataxia FN/HS. REFLEX: plantars down. No clonus. Trace DTRS. GAIT: deferred to PT safety eval DATA: Labs, imaging and physiologic data reviewed in EMR IMPRESSION AND RECOMMENDATIONS: // ACUTE ISCHEMIC STROKE // TRELL STENOSIS - NEAR OCCLUSION - S/P CEA 10/20/16 // LICA STENOSIS - NONCRITICAL // PAROXYSMAL AFIB // BIOPROSTHETIC AVR // TONGUE SWELLING - ANGIOEDEMA - ? REACTION TO PROMETHAZINE Patient with embolic anterior circulation ischemic strokes on MRI in the right hemisphere, though there is a single punctate focus of acute ischemic in the left posterior frontal juxtacortical region. The bihemispheric nature certainly invokes a sense of proximal embolization (ie cardioembolism). However , the possibility remains for TRELL embolization with contralateral embolization to the left hemisphere via the anterior communicating artery. Regardless, she is going to be optimized from a stroke perspective for both causes. She is now POD 1 from right CEA. Cont close neurosurveillance Cont ASA for now per vascular surgery Goal normotension LDL goal < 70 - adjust statin as needed Normoglycemia with goal A1c < 6.5 PT/OT/TAX CREDIT LEASING CONSULTANT evals Stroke education Management of tongue swelling per primary/surgical teams Will need therapeutic anticoagulation long-term for afib/stroke prevention - start when deemed safe post-op - cont ASA bridge for now Followup in neurology clinic 4-6 weeks after discharge Followup PCP 1 week after discharge for vascular risk factor surveillance/ management Followup cardiology 1 week after discharge for afib/anticoagulation management Will sign off - recall PRN Objective: Vital Signs Temp Pulse Resp BP Pulse Ox 36.7 C 60 18 140/65 H 95 10/20/16 19:00 10/21/16 07:00 10/21/16 07:00 10/21/16 07:00 10/21/16 07:00 Microbiology 10/18/16 13:18 Urine Culture - Final Urine,Clean Catch Escherichia Coli Laboratory Results 10/20/16 04:55 10/20/16 10/21/16 10/22/16 05:59 05:59 05:59 Intake Total 606 3200 Output Total 3085 Balance 606 115 PT 13.2 SEC (12.0-15.0) 10/18/16 17:10 INR 1.01 (0.83-1.16) 10/18/16 17:10 Allergies/Adverse Reactions: codeine [Codeine] Allergy (Intermediate, Verified 10/17/16 15:28) Other-Enter Comments
[2016-10-21 09:14] LABS: % IMMATURE GRANULYOCYTES 0.4 % (0.0-1.1); ABSOLUTE IMMATURE GRANULOCYTES 0.04 10^3/uL (0.00-0.10); ADD DIFF? NO; ADD MORPH? NO; ADD SCAN? NO; ATYPICAL LYMPHOCYTE FLAG 0 (0-99); FRAGMENT RBC FLAG 0 (0-99); HEMOGLOBIN 14.8 g/dL (12.6-16.3); LEFT SHIFT FLG 0 (0-99); LIPEMIA HEMOLYSIS FLAG 90 (0-99); MEAN CELL HEMOGLOBIN 31.4 pg (27.9-34.1); MEAN CELL HEMOGLOBIN CONCENTR. 34.4 g/dL (32.4-36.7); MEAN CELL VOLUME 91.3 fL (81.5-99.8); MEAN PLATELET VOLUME 9.8 fL (8.7-11.7); PLATELET CLUMPS FLAG 0 (0-99); PLATELET COUNT 246 10^3/uL (150-400); RED BLOOD CELL COUNT 4.71 10^6/uL (4.18-5.33); RED CELL DISTRIBUTION WIDTH 13.8 % (11.5-15.2)
[2016-10-21 09:33] LABS: ANION GAP 8 mEq/L (8-16); CALCIUM 9.2 mg/dL (8.5-10.4); CARBON DIOXIDE 26 mEq/l (22-31); CHLORIDE 102 mEq/L (97-110); CREATININE 0.9 mg/dL (0.6-1.0); GLOMERULAR FILTRATION RATE > 60; GLUCOSE 179 mg/dL (70-100); POTASSIUM 5.3 mEq/L (3.5-5.2); SODIUM 136 mEq/L (134-144); SPECIMEN HEMOLYSIS 121
[2016-10-21] MEDS ORDERED: MAGNESIUM HYDROXIDE 30 ML UDCUP PO PRN (10:35)
[2016-10-21] MEDS ORDERED: BISACODYL 10 MG SUPP PR PRN (10:35)
[2016-10-21] MEDS ORDERED: LACTULOSE 20 GM/30 ML UDCUP PO PRN (10:35)
[2016-10-21] MEDS ORDERED: POLYETHYLENE GLYCOL 3350 17 GM PKT PO PRN (10:35)
[2016-10-21] MEDS: ASPIRIN 325 MG TAB PO SCH (10:51)
[2016-10-21] MEDS: CARVEDILOL 6.25 MG TAB PO SCH ×2 (10:51→17:57)
[2016-10-21] MEDS: ATORVASTATIN CALCIUM 20 MG TAB PO SCH (10:52)
--- NOTE | 2016-10-21 11:43 | SOAPPROG ---
[facility] Progress Note Assessment/Plan: Assessment: She is currently admitted after experiencing signs and symptoms consistent with stroke. This was confirmed based on neurologic imaging . Workup has demonstrated a high-grade lesion of her right internal carotid artery. She is status post CEA. She has nonobstructive disease on the left. Apparently, there are considerations for a 2nd carotid endarterectomy in the near future. Her cardiac history is significant for valvular and coronary disease. In 2010 she underwent a bioprosthetic aortic valve replacement, mitral valve repair, left atrial Maze procedure and 2 vessel CABG. She has diabetes, hypertension and a history of PAF. Because of her prior Maze procedure and no indication of recurrent atrial arrhythmias she has not been managed with systemic anticoagulation up until this point. Plan: 1. Agree with Neurology who has recommended that she be treated, at least initially, with systemic anticoagulation with a goal INR between 2 and 3. 2. Would recommend increasing atorvastatin to maximum dose therapy of 80 mg daily. 3. As an outpatient, consideration could be given to some form of long-term monitoring such as with a [employer] LINQ to evaluate for recurrent atrial arrhythmias. If no arrhythmias are identified over a define period of time such as 6-12 months, consideration could be given to cessation of systemic anticoagulation at that point and treatment with single anti-platelet therapy. 4. Will defer to her surgical team regarding management of her angioedema. 5. We will sign off for now. Please re-consult if needed. 10/21/16 11:46 Subjective: The patient was seen and examined. Her chart was reviewed. This is my 1st a seen the patient. She states that she has been doing fairly well. Apparently, she has developed angioedema of the tongue. The exact etiology is not clear however it is thought it might be related to some antibiotics that she had been taking. She is currently managed with steroids. Per the nursing staff her tongue size has diminished. Speech therapy saw the patient with no indication of airway compromise at the present time. Objective: Vital Signs Temp Pulse Resp BP Pulse Ox 36.8 C 74 16 136/80 H 97 10/21/16 08:00 10/21/16 10:51 10/21/16 10:00 10/21/16 10:51 10/21/16 10:00 Microbiology 10/18/16 13:18 Urine Culture - Final Urine,Clean Catch Escherichia Coli Laboratory Results 10/21/16 09:00 10/21/16 09:00 10/20/16 10/21/16 10/22/16 05:59 05:59 05:59 Intake Total 606 3200 Output Total 3085 Balance 606 115 PT 13.2 SEC (12.0-15.0) 10/18/16 17:10 INR 1.01 (0.83-1.16) 10/18/16 17:10 Physical Exam - Physical Exam General Appearance: WD/WN, no apparent distress Neck: non-tender, full range of motion Respiratory: lungs clear Cardiac/Chest: regular rate, rhythm, systolic murmur Neuro/Psych: alert, normal mood/affect, oriented x 3 ICD10 Worksheet Patient Problems: Problems Problem Status Onset Transient cerebral ischemia Acute CAD - Coronary arteriosclerosis Active Diabetes mellitus type 2 Active Dyslipidemia Active Essential hypertension Active Low back pain Active Replacement of aortic valve Active Chronic Disease Mgmt/Transitional Care Acute
[2016-10-21] MEDS ORDERED: ATROPINE SULFATE 1 MG/10 ML SYR IVP PRN (12:33)
--- NOTE | 2016-10-21 17:27 | HOSPPROG ---
Hospitalist Progress Note Assessment/Plan: Assessment: 80-year-old female presents with acute embolic ischemic CVA in the setting of critical right ICA stenosis, complicated by acute angioedema Plan: # Angioedema. Acute, evidenced by tongue swelling, dysarthria, potentially 2/2 ACEi vs. 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 Acute, B/L infarcts which either are cardioembolic vs. 2/2 TRELL w/ contralateral embolization via TISHA - recurrent transient speech symptoms since admission - POD#[address] Kelly - d/w Dr. Kelly, hold on systemic anticoagulation for at least another 24hrs - appreciate ongoing neuro consult, cont full strength ASA - statin - LINQ as outpt # Critical carotid stenosis. R, s/p CEA, no area of complication # UTI. Positive UA w/ E coli on UCx and urinary frequency - day 4/5 levofloxacin - remove silva in AM w/ complication of Abx # Bovine AVR. Echo reviewed by cards, SALUD will not alter mgmt # CAD. Chronic, no symptoms, cont asa/statin/bblocker # HTN. Chronic, monitor s/p DC of ACEi Diet. Adv as luis eduardo PPx. High risk, on hep sc Code. Full Dispo. ADD uncertain, requiring ongoing post-CEA/CVA mgmt Subjective: Swelling, difficulty swallowing, difficulty speaking occurring overnight, improving today after receiving steroids patient apprehensive about removing Silva catheter Objective: Vital Signs Temp Pulse Resp BP Pulse Ox 36.7 C 77 18 131/57 H 96 10/21/16 16:00 10/21/16 16:00 10/21/16 16:00 10/21/16 16:00 10/21/16 16:00 Laboratory Results 10/21/16 09:00 10/21/16 09:00 10/20/16 10/21/16 10/22/16 05:59 05:59 05:59 Intake Total 606 3200 Output Total 3085 Balance 606 115 PT 13.2 SEC (12.0-15.0) 10/18/16 17:10 INR 1.01 (0.83-1.16) 10/18/16 17:10 - Time Spent With Patient Time Spent with Patient: greater than 35 minutes Time Spent with Patient: Greater than 35 minutes spent on this patients care, greater than 50% of time spent counseling, educating, and coordinating care regarding the above mentioned plan. - Physical Exam Constitutional: not in pain, chronically ill appearing, obese, No uncomfortable Ears, Nose, Mouth, Throat: other (Tongue very slightly enlarged, uvula visible) Cardiovascular: systolic murmur (2/6 systolic murmur at the sternum), edema (1+ left lower extremity edema), No irregularly irregular, No tachycardia Respiratory: no respiratory distress, no rales or rhonchi, clear to auscultation Gastrointestinal: normoactive bowel sounds, soft, non-tender abdomen, no palpable masses Skin: other (Some ecchymoses over the right neck but no erythema, no induration , minimal tenderness) Neurologic: AAOx3, sensation intact bilaterally, No facial droop Psychiatric: interacting appropriately, not anxious, thought process linear, No encephalopathic ICD10 Worksheet Patient Problems: Problems Problem Status Onset CAD - Coronary arteriosclerosis Active Replacement of aortic valve Active Diabetes mellitus type 2 Active Essential hypertension Active Dyslipidemia Active Low back pain Active Chronic Disease Mgmt/Transitional Care Acute Transient cerebral ischemia Acute
--- NOTE | 2016-10-21 18:12 | GCON ---
PULMONARY CRITICAL CARE CONSULTATION. DATE OF CONSULTATION: 10/21/2016 REASON FOR CONSULTATION: Angioedema of the tongue. HISTORY: The patient is a very pleasant 80-year-old who underwent carotid endarterectomy yesterday. Following the procedure and after the administration of Phenergan, cephalexin and other new medications, she had significant swelling of her tongue. It was protruding from her mouth. She could not talk well and could not swallow. However, she had no airway compromise. She was moved to the intensive care unit. She was treated with steroids, Benadryl, etc. , and has had eventual and slow resolution of the swelling. The tongue is not yet back to normal; however, she is doing well. PAST MEDICAL HISTORY: Remarkable for multiple medical problems, including previous CVA, systemic hypertension, coronary artery disease, type 2 diabetes managed by diet, hyperlipidemia and chronic back pain. On admission, she was felt to have a TIA. This was associated with drooling and slight left facial droop. MRI demonstrated some small MCA area subcortical infarcts. She was found to have carotid stenosis bilaterally. Right was worse than the left. PAST SURGICAL HISTORY: CABG and aortic valve replacement, back surgeries with kyphoplasty, cervical cancer surgery. DRUG ALLERGIES: Codeine. SOCIAL HISTORY: The patient lives independently. She has a supportive family. She smoked cigarettes until 1996. Alcohol is negative. FAMILY HISTORY: Noncontributory. REVIEW OF SYSTEMS: A 10-point review of systems is negative. PHYSICAL EXAMINATION: GENERAL: Reveals a pleasant woman who is somewhat overweight. She is lying comfortably in bed. She is able to stick out her tongue which has significantly decreased in size compared to the morning. She can talk with minimal dysarthria currently. Blood pressure is 131/57, heart rate 77 with sinus rhythm on the monitor. On 2 L of oxygen, she is 96%. Respiratory rate is 18. HEENT: Remarkable for the tongue issues. There is no lymphadenopathy or thyromegaly. The right carotid surgical site is dressed. There are some ecchymoses around the dressing visualized anterior and posterior to the dressing without nanette hematoma formation. CHEST: Clear bilaterally. Excursions are diminished as are breath sounds at the bases. HEART: Regular in rate and rhythm. A systolic murmur is present. Bowel sounds are crisp. ABDOMEN: Overweight, soft and nontender. Bowel sounds are present. There is left lower extremity edema and some swelling of the leg in general that is chronic. Similar changes were not present on the right. NEUROLOGIC: Examination is intact. DATABASE/PREVIOUS RADIOLOGIC STUDIES: As noted above. LABORATORY: Today's laboratory shows a white blood cell count of 10,700, hematocrit 43, platelets of 246,000. Sodium is 136, potassium 5.3, CO2 26, BUN 23 with creatinine 0.9. Glucoses have ranged from approximately 100 to 185. ASSESSMENT: 1. Angioedema of the tongue. This is quite dramatic and has resolved with appropriate therapies. Query Phenergan. Keflex seems less likely. She was to have started this prior to her admission but had not yet picked this up. Other agents including anesthetics are possible as well. She remains on Solu-Medrol. Benadryl and ranitidine. 2. Cerebrovascular disease, status post right carotid end arterectomy. Full- dose heparin has been stopped. She is on subcutaneous heparin currently, and is doing well. 3. History of coronary artery disease and valvular heart disease. She is stable, doing well. Her usual outpatient medications are being continued. PLAN AND RECOMMENDATIONS: The patient will be kept in the intensive care unit tonight. I anticipate that she will be able to go to the floor tomorrow. Steroids can be tapered tomorrow. I anticipate that she will need another day or 2 in the hospital. Further plans and recommendations will be made based on her progress over the next 12-24 hours. /[id number]/MODL MTDD
[2016-10-21] MEDS: SENNOSIDES/DOCUSATE SODIUM TAB PO SCH (20:42)
[2016-10-21] MEDS: HEPARIN 5,000 UNIT/0.5 ML SYR SC SCH (21:14)
[2016-10-21] MEDS: ENALAPRILAT DIHYDRATE 1.25 MG/ML VIAL IV PRN (21:15)
[2016-10-22] MEDS: methylPREDNISolone SOD SUCC 40 MG/ML VIAL IVP SCH (05:02)
[2016-10-22] MEDS: RANITIDINE 50 MG/2 ML VIAL IVP SCH ×3 (05:02→21:35)
[2016-10-22] MEDS: HEPARIN 5,000 UNIT/0.5 ML SYR SC SCH ×3 (05:02→20:43)
[2016-10-22 05:29] LABS: % IMMATURE GRANULYOCYTES 0.6 % (0.0-1.1); ABSOLUTE IMMATURE GRANULOCYTES 0.08 10^3/uL (0.00-0.10); ADD DIFF? NO; ADD MORPH? NO; ADD SCAN? NO; ATYPICAL LYMPHOCYTE FLAG 0 (0-99); FRAGMENT RBC FLAG 0 (0-99); HEMATOCRIT 43.7 % (38.0-47.0); HEMOGLOBIN 14.6 g/dL (12.6-16.3); LEFT SHIFT FLG 0 (0-99); LIPEMIA HEMOLYSIS FLAG 80 (0-99); MEAN CELL HEMOGLOBIN 31.5 pg (27.9-34.1); MEAN CELL HEMOGLOBIN CONCENTR. 33.4 g/dL (32.4-36.7); MEAN CELL VOLUME 94.4 fL (81.5-99.8); MEAN PLATELET VOLUME 9.5 fL (8.7-11.7); PLATELET CLUMPS FLAG 0 (0-99); PLATELET COUNT 231 10^3/uL (150-400); RED BLOOD CELL COUNT 4.63 10^6/uL (4.18-5.33)
[2016-10-22 05:39] LABS: ANION GAP 11 mEq/L (8-16); CALCIUM 9.2 mg/dL (8.5-10.4); CARBON DIOXIDE 26 mEq/l (22-31); CHLORIDE 102 mEq/L (97-110); CREATININE 0.9 mg/dL (0.6-1.0); GLOMERULAR FILTRATION RATE > 60; GLUCOSE 190 mg/dL (70-100); SODIUM 139 mEq/L (134-144)
[2016-10-22] MEDS: ENALAPRILAT DIHYDRATE 1.25 MG/ML VIAL IV PRN (06:09)
[2016-10-22] MEDS: SENNOSIDES/DOCUSATE SODIUM TAB PO SCH ×2 (08:12→22:35)
[2016-10-22] MEDS: CARVEDILOL 6.25 MG TAB PO SCH ×2 (08:12→17:56)
[2016-10-22] MEDS: ATORVASTATIN CALCIUM 20 MG TAB PO SCH (08:12)
[2016-10-22] MEDS: ASPIRIN 325 MG TAB PO SCH (08:12)
--- NOTE | 2016-10-22 10:37 | SOAPPROG ---
SO[facility] Progress Note Assessment/Plan: Assessment/Plan: 80 Y F s/p R CEA. POD#2. Doing well from surgery. No gross neurological deficits. Wound intact. Ok to start systemic anticoagulation today--defer to medicine. Angioedema of tongue resolved. Query phenergan involvement. Wrote down name of drug for pt and daughter. S: no pain. no weakness. no vision changes. eating fine. O: alert, nad inc cdi, moderate swelling and ecchymosis, no erythema, no bruit ctab rrr abd soft, obese neuro grossly intact 10/22/16 10:38 Objective: Vital Signs Temp Pulse Resp BP Pulse Ox 36.7 C 74 16 131/68 H 94 10/22/16 08:00 10/22/16 10:00 10/22/16 10:00 10/22/16 10:00 10/22/16 10:00 Laboratory Results 10/22/16 05:10 10/22/16 05:10 10/21/16 10/22/16 10/23/16 05:59 05:59 05:59 Intake Total 3200 1185 Output Total 3085 2000 Balance 115 -815 PT 13.2 SEC (12.0-15.0) 10/18/16 17:10 INR 1.01 (0.83-1.16) 10/18/16 17:10 ICD10 Worksheet Patient Problems: Problems Problem Status Onset Transient cerebral ischemia Acute CAD - Coronary arteriosclerosis Active Diabetes mellitus type 2 Active Dyslipidemia Active Essential hypertension Active Low back pain Active Replacement of aortic valve Active Chronic Disease Mgmt/Transitional Care Acute
--- NOTE | 2016-10-22 17:40 | HOSPPROG ---
Hospitalist Progress Note Assessment/Plan: Assessment: 80-year-old female presents with acute embolic ischemic CVA in the setting of critical right ICA stenosis, complicated by acute angioedema Plan: # Angioedema. Acute, evidenced by tongue swelling, dysarthria, potentially 2/2 ACEi vs. 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 Acute, B/L infarcts which either are cardioembolic vs. 2/2 TRELL w/ contralateral embolization via TISHA - recurrent transient speech symptoms since admission - POD#[address] Kelly - will start lovenox/coumadin tomorrow AM - appreciate ongoing neuro consult - statin - LINQ as outpt # Critical carotid stenosis. R, s/p CEA, no area of complication - statin and reduced ASA to 81mg given systemic anticoagulation # UTI. Positive UA w/ E coli on UCx and urinary frequency - 5 days of Abx - removed silva w/o complication # Bovine AVR. Echo reviewed by cards, SALUD will not alter mgmt # CAD. Chronic, no symptoms, cont asa/statin/bblocker # HTN. Chronic, goal < 160, adding ARB today, monitor for angioedema Diet. Adv as luis eduardo PPx. High risk, on hep sc Code. Full Dispo. ADD uncertain, requiring ongoing post-CEA/CVA mgmt, requiring at least another 24hrs to ensure no bleeding/recurrent angioedema Subjective: very talkative, would prefer not to use a diuretic given her hx of polyuria Objective: Vital Signs Temp Pulse Resp BP Pulse Ox 36.7 C 74 16 158/72 H 95 10/22/16 15:54 10/22/16 15:54 10/22/16 15:54 10/22/16 15:54 10/22/16 15:54 Laboratory Results 10/22/16 05:10 10/22/16 05:10 10/21/16 10/22/16 10/23/16 05:59 05:59 05:59 Intake Total 3200 1185 350 Output Total 3085 2000 150 Balance 115 -815 200 PT 13.2 SEC (12.0-15.0) 10/18/16 17:10 INR 1.01 (0.83-1.16) 10/18/16 17:10 - Physical Exam Constitutional: no apparent distress, not in pain, chronically ill appearing, obese Cardiovascular: systolic murmur (III/ at sternum w/ AV click), edema (1+ bilat LE, L>R), No irregularly irregular, No tachycardia Respiratory: no respiratory distress, no rales or rhonchi, clear to auscultation Skin: other (ecchymoses confluent around surg site w/o erythema, minimal edema/ induration, no fluctuance, minimal tenderness) Musculoskeletal: full muscle strength, no muscle tenderness, normal joint ROM Neurologic: AAOx3, sensation intact bilaterally ICD10 Worksheet Patient Problems: Problems Problem Status Onset CAD - Coronary arteriosclerosis Active Replacement of aortic valve Active Diabetes mellitus type 2 Active Essential hypertension Active Dyslipidemia Active Low back pain Active Chronic Disease Mgmt/Transitional Care Acute Transient cerebral ischemia Acute
[2016-10-22] MEDS: LOSARTAN POTASSIUM 25 MG TAB PO SCH (18:31)
[2016-10-23 05:48] LABS: % IMMATURE GRANULYOCYTES 0.4 % (0.0-1.1); ABSOLUTE IMMATURE GRANULOCYTES 0.06 10^3/uL (0.00-0.10); ADD DIFF? NO; ADD MORPH? NO; ADD SCAN? NO; ATYPICAL LYMPHOCYTE FLAG 10 (0-99); FRAGMENT RBC FLAG 0 (0-99); HEMATOCRIT 41.9 % (38.0-47.0); HEMOGLOBIN 14.2 g/dL (12.6-16.3); LEFT SHIFT FLG 0 (0-99); LIPEMIA HEMOLYSIS FLAG 90 (0-99); MEAN CELL HEMOGLOBIN 31.6 pg (27.9-34.1); MEAN CELL HEMOGLOBIN CONCENTR. 33.9 g/dL (32.4-36.7); MEAN CELL VOLUME 93.3 fL (81.5-99.8); MEAN PLATELET VOLUME 9.3 fL (8.7-11.7); PLATELET CLUMPS FLAG 0 (0-99); PLATELET COUNT 232 10^3/uL (150-400); RED BLOOD CELL COUNT 4.49 10^6/uL (4.18-5.33); RED CELL DISTRIBUTION WIDTH 13.8 % (11.5-15.2)
[2016-10-23 06:04] LABS: ANION GAP 8 mEq/L (8-16); CALCIUM 9.1 mg/dL (8.5-10.4); CARBON DIOXIDE 27 mEq/l (22-31); CHLORIDE 101 mEq/L (97-110); GLOMERULAR FILTRATION RATE 54; GLUCOSE 125 mg/dL (70-100); POTASSIUM 4.7 mEq/L (3.5-5.2); SODIUM 136 mEq/L (134-144)
[2016-10-23] MEDS: RANITIDINE 50 MG/2 ML VIAL IVP SCH ×2 (06:07→15:17)
[2016-10-23] MEDS: LOSARTAN POTASSIUM 25 MG TAB PO SCH (08:07)
[2016-10-23] MEDS: CARVEDILOL 6.25 MG TAB PO SCH ×2 (08:10→17:56)
[2016-10-23] MEDS: ATORVASTATIN CALCIUM 20 MG TAB PO SCH (08:10)
[2016-10-23] MEDS: ASPIRIN EC 81 MG TAB PO SCH (08:10)
[2016-10-23] MEDS: ENOXAPARIN 100 MG/ML SYR SC SCH ×2 (08:11→19:57)
[2016-10-23] MEDS: SENNOSIDES/DOCUSATE SODIUM TAB PO SCH ×2 (08:13→19:20)
[2016-10-23] MEDS ORDERED: predniSONE 20 MG TAB PO SCH (09:00)
--- NOTE | 2016-10-23 10:10 | SOAPPROG ---
SOAP Progress Note Assessment/Plan: Assessment/Plan: 80 yo F s/p R CEA POD #3 Patient good for discharge from surgery perspective. Defer to medicine. Will have patient follow up in the office within the next 7 days. S: Healthy appetite. In good spirits. No complaints of pain or blurring of vision. PE Gen: alert, awake, nad HEENT: ecchymosis along right lateral and anterior of neck, incision clean and dry CHEST: CTA bilaterally COR: rrr ABD: soft, nontender NEURO: grossly intact 10/23/16 10:01 Objective: Vital Signs Temp Pulse Resp BP Pulse Ox 36.5 C 66 17 148/92 H 95 10/23/16 07:13 10/23/16 08:27 10/23/16 07:13 10/23/16 08:27 10/23/16 07:13 Laboratory Results 10/23/16 05:33 10/23/16 05:33 10/22/16 10/23/16 10/24/16 05:59 05:59 05:59 Intake Total 1185 350 Output Total 2000 150 Balance -815 200 PT 13.2 SEC (12.0-15.0) 10/18/16 17:10 INR 1.01 (0.83-1.16) 10/18/16 17:10 ICD10 Worksheet Patient Problems: Problems Problem Status Onset Transient cerebral ischemia Acute CAD - Coronary arteriosclerosis Active Diabetes mellitus type 2 Active Dyslipidemia Active Essential hypertension Active Low back pain Active Replacement of aortic valve Active Chronic Disease Mgmt/Transitional Care Acute
[2016-10-23] MEDS: LOSARTAN POTASSIUM 50 MG TAB PO SCH (10:53)
[2016-10-23] MEDS ORDERED: LOSARTAN POTASSIUM 25 MG TAB PO ONE (11:00)
[2016-10-23 11:35] LABS: COLOR YELLOW; LEUKOCYTE ESTERASE,URINE NEGATIVE (NEGATIVE); NITRITE,URINE NEGATIVE (NEGATIVE)
--- NOTE | 2016-10-23 15:15 | HOSPPROG ---
Hospitalist Progress Note Assessment/Plan: INTERVAL SUMMARY & DAILY PROGRESS NOTE DATE OF ADMISSION: 10/17/2016 INTERVAL DIAGNOSES 1. Acute ischemic embolic CVA 2. Critical carotid stenosis 3. Urinary tract infection 4. Acute angioedema 5. Chronic hypertension 6. Chronic coronary artery disease 7. Bovine aortic valve replacement CONSULTATIONS General surgery by Dr. Kelly, neurology pulmonary Critical Care PROCEDURES / IMAGING 10/20/2016 right-sided CEA CHIEF COMPLAINT Acute dysarthria SUBJECTIVE Patient reports that she is feeling well and not experiencing any infectious symptoms HOSPITAL COURSE BY PROBLEM This either presented with acute dysarthria secondary to an acute embolic CVA resulting in bilateral areas of infarction on MRI. She was found to have critical right-sided carotid stenosis and was determined that this may be contributing to her presentation. That said, the bilateral nature of the infarcts did raise the issue of possible paroxysmal atrial fibrillation, and systemic anticoagulation was recommended by Cardiology. She tolerated a CEA well and has been initiated on systemic anticoagulation. Her course was complicated by acute angioedema, possibly secondary to either promethazine versus NELLY-inhibitor. She received empiric steroids, Benadryl, ranitidine, and improved without further issues. She will be discharged home on Lovenox bridge to Coumadin, to be followed by the Coumadin Clinic. Her only residual deficit from her CVA is some mild thought blocking. Rising WBC warranting further w/u today, DC 10/24 if plateau. Assessment: 80-year-old female presents with acute embolic ischemic CVA in the setting of critical right ICA stenosis, complicated by acute angioedema Plan: # Angioedema. Acute, evidenced by tongue swelling, dysarthria, potentially 2/2 ACEi vs. promethazine - stopped both ACEi and promethazine - status post prednisone, ranitidine, Benadryl, all of which have been discontinued - s/p CSO eval, passed swallow eval # Embolic CVA, ischemic. Acute, B/L infarcts which either are cardioembolic vs. 2/2 TRELL w/ contralateral embolization via TISHA, atrial fibrillation is distinct possibility and Cardiology has recommended treating for possible paroxysmal AFib with systemic anticoagulation given a chads 2 Vasc score of 4 - recurrent transient speech symptoms since admission, only mild thought blocking as residual - POD#[address] Kelly - initiated on Lovenox bridge to Coumadin on 10/23, have discussed with case management and they will arrange for Coumadin Clinic appointment on 10/27 given the patient's primary pipe foreman is Dr. Miguel - statin - LINQ as outpt # Critical carotid stenosis. R, s/p CEA, no area of complication - statin and reduced ASA to 81mg given systemic anticoagulation # Leukocytosis. Acute, new problem, further w/u indicated. Unclear whether post- op inflammation vs. unidentified infxn - patient w/o infxn symptoms, albeit cough - get CXR, has possible LLL atelectasis/effusion (personally interpreted) - if WBC rising tomorrow, fever, or worsening pulm symptoms, get chest CT - UA bland - repeat CBC tomorrow AM - hold on Abx # UTI. Positive UA w/ E coli on UCx and urinary frequency - 5 days of Abx - removed silva w/o complication # Bovine AVR. Echo reviewed by cards, SALUD will not alter mgmt # CAD. Chronic, no symptoms, cont asa/statin/bblocker, no recurrent angioedema Diet. Reg as luis eduardo PPx. High risk, on lovenox Code. Full Dispo. ADD 10/24, continuing rise of WBC today requiring infxn w/u and monitoring High risk, complexity patient, for issues outlined above. Subjective: Patient is feeling well, denies any infectious symptoms, denies any urinary symptoms, reports that left lower extremity edema is stable Objective: Vital Signs Temp Pulse Resp BP Pulse Ox 36.8 C 65 19 133/68 H 96 10/23/16 11:52 10/23/16 11:52 10/23/16 11:52 10/23/16 11:52 10/23/16 11:52 Laboratory Results 10/23/16 05:33 10/23/16 05:33 10/22/16 10/23/16 10/24/16 05:59 05:59 05:59 Intake Total 1185 350 450 Output Total 2000 150 100 Balance -815 200 350 PT 13.2 SEC (12.0-15.0) 10/18/16 17:10 INR 1.01 (0.83-1.16) 10/18/16 17:10 - Pending Discharge Pending Discharge Within 24 Hours: Yes Pending Discharge Date: 10/24/16 Pending Discharge Time: 11:00 - Physical Exam Constitutional: no apparent distress, appears nourished, not in pain, chronically ill appearing, obese Cardiovascular: systolic murmur (206 sternum with closing snap), edema (+left lower extremity edema), No irregularly irregular, No tachycardia Respiratory: inspiratory crackles (Bilateral bases, left greater than right), No expiratory wheeze, No bronchial breath sounds, No respiratory distress Gastrointestinal: normoactive bowel sounds, soft, non-tender abdomen, no palpable masses Neurologic: AAOx3, sensation intact bilaterally, other (Very subtle thought blocking), No weakness (Motor strength 5/5 bilaterally), No facial droop Psychiatric: interacting appropriately, not encephalopathic, thought process linear, anxious, No agitated ICD10 Worksheet Patient Problems: Problems Problem Status Onset Transient cerebral ischemia Acute CAD - Coronary arteriosclerosis Active Diabetes mellitus type 2 Active Dyslipidemia Active Essential hypertension Active Low back pain Active Replacement of aortic valve Active Chronic Disease Mgmt/Transitional Care Acute
[2016-10-23] MEDS ORDERED: WARFARIN SODIUM 5 MG TAB PO SCH (16:00)
--- NOTE | 2016-10-23 23:38 | SOAPPROG ---
SOAP Progress Note Assessment/Plan: Assessment: POSTOP OK/ NEURO INTACT Plan: PER ORDERS 10/20/16 19:05 10/21/16 00:27 CALLED INTO SEE PT FOR SWOLLEN TONGUE/ VERY THICK AND EDEMATOUS ON DISTAL THIRD VOICE OK EXCEPT FOR TONGUE THICKNESS/ NECK SOFT, NOT SWOLLEN, NO BLEEDING/ O2 SATS GOOD/ NEURO COMPLETELY INTACT NOT IMPROVED WITH SOLUMEDROL SO FAR PER NURSES ? ALLERGIC REACTION TO PHENERGAN/ NO REPORTED INTUBATION DIFFICULTY/ NO OBVIOUS DIRECT TRAUMA/ NO NECK OR PHAARYNGEAL SWELLING PLAN BENADRYL, ZANTAC, TKO IV, LASIX, HEAD ELEVATION/ NPO/ TRACH IF NEEDED 10/21/16 08:17 ALERT/ VS OK/ NEURO INTACT/ TONGUE SWELLING IMPROVED/ WOUND OK/ NO NEW ISSUES / PLAN OBS 10/23/16 23:37 NEURO STATUS GOOD/ WOUND OK/ AFEBRILE/ HOME SOON LEFT CEA IN 3-4 WEEKS Objective: Vital Signs Temp Pulse Resp BP Pulse Ox 36.8 C 66 18 170/85 H 95 10/23/16 19:43 10/23/16 19:43 10/23/16 19:43 10/23/16 19:43 10/23/16 19:43 Laboratory Results 10/23/16 05:33 10/23/16 05:33 10/22/16 10/23/16 10/24/16 05:59 05:59 05:59 Intake Total 1185 350 650 Output Total 2000 150 100 Balance -815 200 550 PT 13.2 SEC (12.0-15.0) 10/18/16 17:10 INR 1.01 (0.83-1.16) 10/18/16 17:10 ICD10 Worksheet Patient Problems: Problems Problem Status Onset Transient cerebral ischemia Acute CAD - Coronary arteriosclerosis Active Diabetes mellitus type 2 Active Dyslipidemia Active Essential hypertension Active Low back pain Active Replacement of aortic valve Active Chronic Disease Mgmt/Transitional Care Acute
[2016-10-24 05:29] LABS: % IMMATURE GRANULYOCYTES 0.3 % (0.0-1.1); ABSOLUTE IMMATURE GRANULOCYTES 0.03 10^3/uL (0.00-0.10); ADD DIFF? NO; ADD MORPH? NO; ADD SCAN? NO; ATYPICAL LYMPHOCYTE FLAG 20 (0-99); FRAGMENT RBC FLAG 0 (0-99); HEMATOCRIT 42.4 % (38.0-47.0); HEMOGLOBIN 14.2 g/dL (12.6-16.3); LEFT SHIFT FLG 0 (0-99); LIPEMIA HEMOLYSIS FLAG 80 (0-99); MEAN CELL HEMOGLOBIN 31.8 pg (27.9-34.1); MEAN CELL HEMOGLOBIN CONCENTR. 33.5 g/dL (32.4-36.7); MEAN CELL VOLUME 95.1 fL (81.5-99.8); MEAN PLATELET VOLUME 9.7 fL (8.7-11.7); PLATELET CLUMPS FLAG 0 (0-99); PLATELET COUNT 226 10^3/uL (150-400); RED BLOOD CELL COUNT 4.46 10^6/uL (4.18-5.33); RED CELL DISTRIBUTION WIDTH 13.9 % (11.5-15.2)
[2016-10-24 05:40] LABS: INR 1.15 (0.83-1.16); PROTIME(PATIENT) 14.7 SEC (12.0-15.0)
[2016-10-24 05:46] LABS: ANION GAP 6 mEq/L (8-16); CALCIUM 8.8 mg/dL (8.5-10.4); CARBON DIOXIDE 31 mEq/l (22-31); CHLORIDE 100 mEq/L (97-110); GLOMERULAR FILTRATION RATE 54; GLUCOSE 102 mg/dL (70-100); POTASSIUM 4.7 mEq/L (3.5-5.2); SODIUM 137 mEq/L (134-144)
[2016-10-24 07:31] VITALS: RESP 16
[2016-10-24] MEDS: ASPIRIN EC 81 MG TAB PO SCH (07:56)
[2016-10-24] MEDS: LOSARTAN POTASSIUM 50 MG TAB PO SCH (07:56)
[2016-10-24] MEDS: ATORVASTATIN CALCIUM 20 MG TAB PO SCH (07:56)
[2016-10-24] MEDS: ENOXAPARIN 100 MG/ML SYR SC SCH (07:57)
[2016-10-24] MEDS: SENNOSIDES/DOCUSATE SODIUM TAB PO SCH (07:57)
[2016-10-24] MEDS: CARVEDILOL 6.25 MG TAB PO SCH (07:57)
--- NOTE | 2016-10-24 11:54 | PDIAF ---
- Diagnosis Diagnosis: CVA Code Status: Full Code - Medication Management Discharge Medications: Medications to Continue on Transfer Carvedilol [Coreg (*)] 6.25 mg PO BIDMEAL 10/17/16 [Last Taken 10/16/16 18:00] Acetaminophen [Tylenol ES 500 mg (*)] 1,000 mg PO Q6HRS PRN #0 tab 10/24/16 [ Last Taken Unknown] Aspirin EC [Aspirin EC 81 mg (*)] 81 mg PO DAILY #0 tab 10/24/16 [Last Taken Unknown] Atorvastatin Calcium [Lipitor 20 mg (*)] 20 mg PO DAILY #30 tab 10/24/16 [Last Taken Unknown] Enoxaparin [Lovenox 100 MG (*)] 90 mg SC BID #14 syr 10/24/16 [Last Taken Unknown] Losartan Potassium [Cozaar 50 mg (*)] 50 mg PO DAILY #30 tab 10/24/16 [Last Taken Unknown] Polyethylene Glycol 3350 [Miralax 17 gm (*)] 17 gm PO DAILY PRN #0 pkt 10/24/16 [Last Taken Unknown] Sennosides/Docusate Sodium [Senokot-S] 1 - 2 tab PO BID #0 tab 10/24/16 [Last Taken Unknown] Warfarin Sodium [Coumadin 5MG (*)] 5 mg PO DAILY AT 4PM #30 tab 10/24/16 [Last Taken Unknown] Discharge Medications: Refer to the Discharge Home Medication list for PRN reason. PICC Care - Routine: N/A - Orders Services needed: Home Care, Registered Nurse, Physical Therapy, Occupational Therapy Home Care Face to Face: I certify that this patient was under my care and that I had the required [id number] encounter meeting the encounter requirements on the discharge day. My findings support the fact that the patient is homebound as defined in CMS Chapter 7 Medicare Benefits Manual 30.1.1, The condition of the patient is such that there exists a normal inability to leave home and consequently, leaving home would require a considerable and taxing effort. - Labs/Radiology PT/INR Date: 10/27/16 - Follow Up Care Current Providers and Referrals: MORENITA PATRICIA [Other] Fabiano Kelly MD [Medical Doctor] - (call for an appointment for about one week after your hospital discharge)
[2016-10-24 14:06] VITALS: BP 144/97; PULSE 69; TEMP 98.7; O2SAT 91
--- NOTE | 2016-10-24 15:06 | GDS ---
[f rep st] DISCHARGE SUMMARY DISCHARGE DIAGNOSES: 1. Acute ischemic embolic cerebrovascular accident. 2. Critical carotid stenosis. 3. Urinary tract infection. 4. Acute angioedema. 5. Chronic hypertension. 6. Chronic coronary artery disease. 7. Bovine aortic valve replacement. CONSULTATIONS: 1. General Surgery, Dr. Kelly. 2. Neurology. 3. Pulmonary Critical Care. PROCEDURES: On 10/20/2016, the patient had a right-sided CEA. PHYSICAL EXAM: GENERAL: The patient is alert and oriented. VITAL SIGNS: Afebrile at 37.1. Pulse is 69. Respiratory rate 16. Blood pressure is 144/97. She is saturating 91% on 3 L. I have seen and evaluated the patient on the day of discharge. HOSPITAL COURSE: The patient is a 80-year-old female who presented with acute dysarthria. She was evaluated and diagnosed with: 1. Acute ischemic embolic stroke. During her evaluation, she was noted to have critical right-side d carotid stenosis and it was determined that it was likely contributing to her presentation. She w as placed on systemic anticoagulation for possible paroxysmal atrial fibrillation. She has been ini tiated on Lovenox bridge with Coumadin. She has also been initiated on a statin and will continue t his at the time of disposition. 2. Critical carotid stenosis. The patient underwent surgical intervention with Dr. Kelly. She ellyn l continue statin as well as a baby aspirin in the outpatient setting. 3. Angioedema. Potentially, this is secondary to the patient's NELLY inhibitor versus promethazine. Both of these medications have been discontinued. The patient has responded well to prednisone and Benadryl and passed a swallow eval with no further complaints. 4. Urinary tract infection. This is a pansensitive E coli urinary tract infection. She was treate d with 5 days of antibiotic therapy during this hospital course. 5. Leukocytosis. This is multifactorial and has improved throughout this hospitalization. This ca n be further worked up in the outpatient setting. DISPOSITION: The patient will be discharged home with home health care. There are no pending studi es. DISCHARGE MEDICATIONS: Please refer to EMR form. She has been provided prescriptions for Lipitor, Cozaar, Coumadin, and Lovenox. She will continue home care with home PT, OT, and RN. Followup will be with Dr. Kelly as well as franco patient's primary care physician. I spent greater than 35 minutes in the care, coordination, and management of this patient's disposit ion. Please refer to dictated interim summary by Dr. Juanpablo Garay on 10/23/2016 for further details. /[id number]/MODL
--- NOTE | 2016-10-27 13:39 | GOP ---
[f rep st] OPERATIVE REPORT DATE OF OPERATION: 10/20/2016 SURGEON: Fabiano Kelly MD PREOPERATIVE DIAGNOSIS: Critical right carotid stenosis with recent transient ischemic attack. POSTOPERATIVE DIAGNOSIS: Critical right carotid stenosis with recent transient ischemic attack. PROCEDURE PERFORMED: Right carotid endarterectomy with EEG monitoring. FINDINGS: Patient was found to have a high-grade calcified stenosis at the origin of the internal c arotid artery. There were no EEG changes during the procedure and she awoke moving all e xtremities, intact neurologically. DESCRIPTION OF PROCEDURE: Patient taken to the operating room, where she received satisfactory gene ral endotracheal. Anesthesia after being anticoagulated with heparin. She was placed in a supine pos ition, prepped and draped in the usual sterile fashion. Incision made along the interval of the ster nocleidomastoid muscle. Dissection extended down through the platysma and then through the fascia. T he common facial vein was dissected free, multiply ligated and divided, exposing the carotid arteria l tree. The common carotid, external carotid, and internal carotid arteries were all dissected free and controlled with vessel loops, as well as the inferior thyroid artery. After adequate exposure wa s achieved, the patient was given additional heparin, and after adequate circulation time, the vesse ls were occluded with vessel loops. Arteriotomy was made in the common carotid artery, extended up t hrough the calcified plaque into the internal carotid artery. This was opened at the back opening of the internal carotid stump. There were no EEG changes. Expeditious endarterectomy was done removing the plaque with a good feathered end at the internal carotid origin. A shunt was then placed and wa s working correctly. All debris was removed from the artery and cleared, and then the artery was joana sed with a Dacron patch using a Hemashield 7, running suture. That was removed and the patch closur e completed. All vessels were flushed prior to completion of the anastomosis. Flow was first initiat ed at the carotid artery and then up through the carotid artery. There was go od pulse in the internal carotid artery. No EEG changes. Hemostasis was assured. Heparin was reverse d with protamine. The wound was sprayed with some topical thrombin and hemostasis was completed. The wound was then closed using 3-0 Vicryl for the cervical fascia, a running 3-0 Vicryl for the platys ma and subcutaneous tissue, and a running 4-0 Monocryl subcuticular stitch for the skin. All layers were infiltrated with 0.5% Marcaine. There were no complications. She tolerated the procedure well. Taken to recovery room in good condition. Blood loss was less rosio n 50 cc. There were no complications. /[id number]/MODL
== END 2016-10-24 14:29 | disposition home health service (06) | DRG 38 ==
LOC: F1N 17:53 → OBSVTOIN 10-18 10:59 → F3N 10-18 12:44 → F2N 10-20 11:19 → F3N 10-22 13:44
PROVIDERS: ADMIT Internal Medicine; ATTEND Internal Medicine
PROC: 03CK0ZZ Extirpation of Matter from Right Internal Carotid Artery, Open Approach (ICD-10-PCS; principal; 2016-10-20 13:45)
DX: I63.131 Cerebral infarction due to embolism of right carotid artery (principal); N39.0 Urinary tract infection, site not specified; B96.20 Unspecified Escherichia coli [E. coli] as the cause of diseases classified elsewhere; I48.0 Paroxysmal atrial fibrillation; T78.3XXA Angioneurotic edema, initial encounter; I25.10 Atherosclerotic heart disease of native coronary artery without angina pectoris; E11.9 Type 2 diabetes mellitus without complications; Z87.440 Personal history of urinary (tract) infections; Z85.41 Personal history of malignant neoplasm of cervix uteri; Z95.1 Presence of aortocoronary bypass graft; Z95.2 Presence of prosthetic heart valve; Z87.891 Personal history of nicotine dependence; Z86.73 Personal history of transient ischemic attack (TIA), and cerebral infarction without residual deficits
CPT/HCPCS: 82947-QW; 85520-90; 92526-GN; 92610-GN; 97116-GP; 97161-GP; 97165-GO; 97168-GO; 97530-GO; 97530-GP; 97535-GO; C1768; G0378; G8978-GP-CK; G8979-GP-CI; G8987-GO-CK; G8988-GO-CI; G8996-GN-CI; G8997-GN-CH; G8998-GN-CH; J0690; J1100; J1200; J1644; J1650; J2001; J2250; J2370; J2405; J2550; J2704; J2720; J2780; J3010; Q9967

== ENCOUNTER 2016-10-24 23:14 | Inpatient (IN) | payer OTHER, MEDICAID ==
[2016-10-24] MEDS ORDERED: NS 1,000 ML IV ONE (23:50)
[2016-10-24] MEDS ORDERED: ONDANSETRON 4 MG/2 ML VIAL IVP ONE (23:50)
--- NOTE | 2016-10-24 23:50 | EDPHY ---
H & P Stated Complaint: R carotid sgy 10/20, dc'd today; now vomiting HPI/ROS: HPI CHIEF COMPLAINT: Nausea and vomiting, recent hospitalization HISTORY OF PRESENT ILLNESS: This patient very pleasant 80-year-old female significant past medical history for recent hospitalization from October 17 ill today and discharged today after she was here for an acute ischemic stroke, and had critical carotid artery stenosis intervention, urinary tract infection, angioedema, presents back to the emergency room this evening with nausea vomiting and headache. Patient tells me this started approximately 2-3 hours ago she has had 2-3 episodes of vomiting she tells me that she has a right- sided headache as well. She denies any focal weakness numbness or tingling. Denies chest pain or shortness of breath. Of note on exam she does have ecchymosis to the right side of her neck and some fullness she tells me that ecchymosis been there however it is a little bit more full than prior today when she was discharged. She has no trouble swallowing. She is not having trouble breathing. She is not having a fever. this patient is on anticoagulation of Coumadin. Past Medical History: Hypertension, coronary artery disease, aortic valve, AFib , hyperlipidemia CVA, embolic Past Surgical History: Cholecystectomy Social History: Denies daily use drugs alcohol tobacco products Family History: Noncontributory ROS REVIEW OF SYSTEMS: A comprehensive 10 point review of systems is otherwise negative aside from elements mentioned in the history of present illness. Exam Constitutional triage nursing summary reviewed, vital signs reviewed, awake/ alert. Eyes normal conjunctivae and sclera, EOMI, PERRLA. HENT neck: Steri-Strips in place on the right lateral neck, there is significant amount of ecchymosis down the right neck and submandibular region, as well as down the anterior neck, there is fullness to the right neck, there is induration present, Steri-Strips in place, no swelling underneath her tongue or posterior pharynx, submandibular region is soft, firm right lateral neck palpable hematoma present. posterior pharynx is normal, if the swelling, no trismus, moist mucus membranes, no epistaxis, neck supple/ no meningismus, no raccoon eyes. Respiratory clear to auscultation bilaterally, normal breath sounds, no respiratory distress, no wheezing. Cardiovascular rate normal, regular rhythm, no murmur, no edema, distal pulses normal. Gastrointestinal soft, non-tender, no rebound, no guarding, normal bowel sounds, no distension, no pulsatile mass. Genitourinary no CVA tenderness. Musculoskeletal no midline vertebral tenderness, full range of motion, no calf swelling, no tenderness of extremities, no meningismus, good pulses, neurovascularly intact. Skin pink, warm, & dry, no rash, skin atraumatic. Neurologic do not appreciate focal neurological deficit on exam, awake, alert and oriented x 3, AAOx3, moves all 4 extremities equally, motor intact, sensory intact, CN II-XII intact, normal cerebellar, normal vision, normal speech. Psychiatric normal mood/affect. Heme/Lymph/Immune no lymphadenopathy. Differential Diagnosis: Includes but is not limited to in a particular order: Acute nausea vomiting, dehydration, electrolyte abnormality, bleeding from recent carotid endarterectomy, intracranial bleed, conversion of stroke bleed, migraine headache, hypertension, mi Medical Decision Making: Plan for this patient had an IV established be hydrated with IV fluids gently, IV Zofran for nausea IV fentanyl for pain control, check basic blood work including Coumadin, also will consult Dr. Marco Antonio Kelly who did a carotid endarterectomy. Most likely will perform a CT scan head without to rule out bleed, CT angiogram head and neck to make sure she does have a complication from recent carotid endarterectomy. Re-evaluation: CT scan of the head without IV contrast The results of the study are negative for anything acute. The study was read by Dr. Musa. I viewed the images myself on the PACS system. CT scan of the neck with angiogram The results of the study are this shows an active extravasation of the right carotid endarterectomy region on CT angiogram with contrast, there is surrounding hematoma 4 x 3.5 cm The study was read by Dr. Musa. I viewed the images myself on the PACS system. CT scan of the head without IV contrast. The results of the study are negative for arterial injury of the brain. The study was read by Dr. Musa I viewed the images myself on the PACS system. EKG interpretation by me on record in [employer] system. Impression time of EKG is 0019 this is sinus rhythm rate of 69, I do not appreciate acute ischemic changes noted Q-waves in inferior leads. When compared to old EKG on 10/17/2016 is very similar EKG morphology specifically Q-waves noted in inferior leads are there on on EKG. 1205: Spoke with Dr. Fabiano Kelly who did this patient's carotid endarterectomy he agrees with current plan of CT scan head without CT angiogram head and neck. He did tell me the patient did have ecchymosis down the right neck and underneath her jaw line which she has currently unclear if she has more swollen than when she was at discharge. 0155: notified to me by Dr. Musa that this patient has a active bleed of the right carotid region with surrounding hematoma 4 x 3.5 cm. at this time of moved patient from ER room 9 to ER room 2. I have consulted Dr. Marco Antonio Kelly Critical Care: Total Critical Care Time Spent Managing this Patient: 65Minutes. This time was spent Exclusively with this patient. This Care was exclusive of procedures. The Organ System/life at risk was acute bleed in the neck, carotid artery injury This Patient was in Critical Condition because acute bleed neck, carotid artery injury 0207: Re-examination at this time patient is complaining of a headache and right neck pain. It is noted her blood pressure is 200 systolic. Patient be started on nicardipine drip to lower her blood pressure as she does have a carotid artery injury. 0217: Spoke with Dr. Kelly at this time. he would like better blood pressure control I have already started this patient on nicardipine drip. I have also performed better pain control with more IV fentanyl. This time she is hemodynamically stable with hypertension that I am going to work on to bring down with a nicardipine drip this can be causing her nausea vomiting headache. Dr. Kelly is going to review her CT scan of her neck. He agreed with the plan for titration of her blood pressure nicardipine and admission to the ICU with the hospitalist service. At this time I did re-evaluate the patient's neck it does not appear to be expanding she is not having any trouble swallowing her airway is patent. I will place her in ICU on nicardipine drip for close monitoring. I did review her med list she takes aspirin, she has bridging Coumadin with Lovenox her INR is only 1.28. PTT is not acutely elevated. 0224: Spoke with Dr. Aviles who agrees to admit the patient to the ICU. 0226: re-examination at this time patient is not having trouble swallowing or breathing. She states her neck pain is better. I have monitored this and re- evaluated this multiple times here in the emergency room it does not appear to be getting larger. 0239: Spoke with Dr. Kelly again, he is coming in to see and evaluate the patient. 0300: Dr. Kelly seen evaluated the patient plan for this patient is to go to the operating room to have her carotid site opened hematoma drained. She has been on nicardipine blood pressures in the 150s. She is not having any trouble swallowing or breathing. She is hemodynamically stable. He is admitted to the ICU 1 nicardipine the 1st go to the operating room with Dr. Kelly. Source: Patient - Personal History Current Tetanus/Diphtheria Vaccine: Yes Current Tetanus Diphtheria and Acellular Pertussis (TDAP): Yes Tetanus Vaccine Date: 2014 - Medical/Surgical History Hx Asthma: Yes Hx Chronic Respiratory Disease: Yes Hx Diabetes: Yes Hx Cardiac Disease: Yes Hx Renal Disease: No Hx Cirrhosis: No Hx Alcoholism: No Hx HIV/AIDS: No Hx Splenectomy or Spleen Trauma: No Other PMH: Diabetes, aortic valve replacement, CABG x2, cervical cancer, spinal surgery x 4, frequent UTI, suraj, appy osteopeorosis, hysterectomy, HTN, irregular heartbeat, mini-strokes, hld - Social History Smoking Status: Former smoker Constitutional: Initial Vital Signs Temperature (C) 36.3 C 10/24/16 23:17 Heart Rate 74 10/24/16 23:17 Respiratory Rate 20 10/24/16 23:17 Blood Pressure 171/113 H 10/24/16 23:17 O2 Sat (%) 88 L 10/24/16 23:17 O2 Delivery Mode Nasal Cannula O2 (L/minute) 3 Allergies/Adverse Reactions: lidocaine Allergy (Severe, Verified 10/25/16 03:22) Swelling/neck,face,throat codeine [Codeine] Allergy (Intermediate, Verified 10/25/16 03:22) Other-Enter Comments promethazine HCl [From Phenergan] Allergy (Verified 10/25/16 03:04) Home Medications: Medication Instructions Recorded Carvedilol [Coreg (*)] 6.25 mg PO BIDMEAL 10/17/16 Acetaminophen [Tylenol ES 500 mg 1,000 mg PO Q6HRS PRN #0 tab 10/24/16 (*)] Aspirin EC [Aspirin EC 81 mg (*)] 81 mg PO DAILY #0 tab 10/24/16 Atorvastatin Calcium [Lipitor 20 20 mg PO DAILY #30 tab 10/24/16 mg (*)] Enoxaparin [Lovenox 100 MG (*)] 90 mg SC BID #14 syr 10/24/16 Losartan Potassium [Cozaar 50 mg 50 mg PO DAILY #30 tab 10/24/16 (*)] Polyethylene Glycol 3350 [Miralax 17 gm PO DAILY PRN #0 pkt 10/24/16 17 gm (*)] Sennosides/Docusate Sodium 1 - 2 tab PO BID #0 tab 10/24/16 [Senokot-S] Warfarin Sodium [Coumadin 5MG (*)] 5 mg PO DAILY AT 4PM #30 tab 10/24/16 Medical Decision Making - Data Points Laboratory Results: Laboratory Results 10/25/16 00:00 10/25/16 02:05 10/25/16 10/25/16 10/25/16 02:05 00:00 00:00 WBC RBC Hgb Hct MCV MCH MCHC RDW Plt Count MPV Neut % (Auto) Lymph % (Auto) Bowman % (Auto) Eos % (Auto) Baso % (Auto) Nucleat RBC Rel Count Absolute Neuts (auto) Absolute Lymphs (auto) Absolute Monos (auto) Absolute Eos (auto) Absolute Basos (auto) Absolute Nucleated RBC Immature Gran % Immature Gran # PT 16.0 SEC H SEC (12.0-15.0) INR 1.28 H (0.83-1.16) APTT 36.0 SEC SEC (23.0-38.0) Sodium 137 mEq/L mEq/L 135 mEq/L mEq/L (134-144) (134-144) Potassium 4.9 mEq/L mEq/L 5.4 mEq/L H mEq/L (3.5-5.2) (3.5-5.2) Chloride 100 mEq/L mEq/L 99 mEq/L mEq/L (97-110) (97-110) Carbon Dioxide 29 mEq/l mEq/l 26 mEq/l mEq/l (22-31) (22-31) Anion Gap 8 mEq/L mEq/L 10 mEq/L mEq/L (8-16) (8-16) BUN 35 mg/dL H mg/dL 40 mg/dL H mg/dL (7-23) (7-23) Creatinine 0.9 mg/dL mg/dL 1.0 mg/dL mg/dL (0.6-1.0) (0.6-1.0) Estimated GFR > 60 54 Glucose 162 mg/dL H mg/dL 176 mg/dL H mg/dL (70-100) (70-100) Calcium 8.2 mg/dL L mg/dL 8.7 mg/dL mg/dL (8.5-10.4) (8.5-10.4) Total Bilirubin 1.0 mg/dL mg/dL (0.1-1.4) Conjugated Bilirubin 0.4 mg/dL mg/dL (0.0-0.5) Unconjugated Bilirubin 0.6 mg/dL mg/dL (0.0-1.1) AST 29 IU/L IU/L (14-46) ALT 28 IU/L IU/L (9-52) Alkaline Phosphatase 79 IU/L IU/L (38-126) Troponin I 0.020 ng/mL ng/mL (0-0.034) Total Protein 6.8 g/dL g/dL (6.3-8.2) Albumin 3.9 g/dL g/dL (3.5-5.0) Lipase 210.0 IU/L IU/L (23-300) 10/25/16 00:00 WBC 10.91 10^3/uL H 10^3/uL (3.80-9.50) RBC 4.92 10^6/uL 10^6/uL (4.18-5.33) Hgb 15.3 g/dL g/dL (12.6-16.3) Hct 45.0 % % (38.0-47.0) MCV 91.5 fL fL (81.5-99.8) MCH 31.1 pg pg (27.9-34.1) MCHC 34.0 g/dL g/dL (32.4-36.7) RDW 13.8 % % (11.5-15.2) Plt Count 242 10^3/uL 10^3/uL (150-400) MPV 9.7 fL fL (8.7-11.7) Neut % (Auto) 74.3 % H % (39.3-74.2) Lymph % (Auto) 15.5 % % (15.0-45.0) Bowman % (Auto) 8.9 % % (4.5-13.0) Eos % (Auto) 0.5 % L % (0.6-7.6) Baso % (Auto) 0.2 % L % (0.3-1.7) Nucleat RBC Rel Count 0.0 % % (0.0-0.2) Absolute Neuts (auto) 8.11 10^3/uL H 10^3/uL (1.70-6.50) Absolute Lymphs (auto) 1.69 10^3/uL 10^3/uL (1.00-3.00) Absolute Monos (auto) 0.97 10^3/uL H 10^3/uL (0.30-0.80) Absolute Eos (auto) 0.05 10^3/uL 10^3/uL (0.03-0.40) Absolute Basos (auto) 0.02 10^3/uL 10^3/uL (0.02-0.10) Absolute Nucleated RBC 0.00 10^3/uL 10^3/uL (0-0.01) Immature Gran % 0.6 % % (0.0-1.1) Immature Gran # 0.07 10^3/uL 10^3/uL (0.00-0.10) PT INR APTT Sodium Potassium Chloride Carbon Dioxide Anion Gap BUN Creatinine Estimated GFR Glucose Calcium Total Bilirubin Conjugated Bilirubin Unconjugated Bilirubin AST ALT Alkaline Phosphatase Troponin I Total Protein Albumin Lipase Medications Given: Discontinued Medications Fentanyl (Sublimaze) 50 mcg IVP EDNOW ONE Stop: 10/25/16 00:04 Last Admin: 10/25/16 00:28 Dose: 50 mcg Fentanyl (Sublimaze) 50 mcg IVP EDNOW ONE Stop: 10/25/16 01:49 Last Admin: 10/25/16 01:54 Dose: 50 mcg Fentanyl (Sublimaze) 50 mcg IVP EDNOW ONE Stop: 10/25/16 02:09 Last Admin: 10/25/16 02:41 Dose: 50 mcg Sodium Chloride (Ns) 1,000 mls @ 0 mls/hr IV ONCE ONE PRN Reason: Wide Open Stop: 10/24/16 23:51 Last Admin: 10/25/16 00:01 Dose: 1,000 mls Nicardipine/Sodium Chloride (Cardene 0.1 Mg/Ml (Premix)) 200 mls @ 0 mls/hr IV CONT TOMMY; Titrate PRN Reason: Protocol Stop: 04/23/17 02:29 Last Admin: 10/25/16 02:12 Dose: 200 mls Ondansetron HCl (Zofran) 4 mg IVP EDNOW ONE Stop: 10/24/16 23:51 Last Admin: 10/25/16 00:02 Dose: 4 mg Ondansetron HCl (Zofran) 4 mg IVP EDNOW ONE Stop: 10/25/16 02:40 Last Admin: 10/25/16 02:41 Dose: 4 mg Protamine Sulfate (Protamine Sulfate) 25 mg IVP ONCE ONE Stop: 10/25/16 03:34 Last Admin: 10/25/16 03:51 Dose: Not Given Departure - Departure Disposition: [facility] [place] Inpatient Acute Clinical Impression: Hypertensive urgency Hematoma of neck Qualifiers: Encounter type: initial encounter Qualified Code(s): S10.93XA - Contusion of unspecified part of neck, initial encounter Condition: Critical
[2016-10-25] MEDS ORDERED: fentaNYL 100 MCG/2 ML INJ IVP ONE ×3 (00:03→02:08)
[2016-10-25 00:08] LABS: % IMMATURE GRANULYOCYTES 0.6 % (0.0-1.1); ABSOLUTE IMMATURE GRANULOCYTES 0.07 10^3/uL (0.00-0.10); ADD DIFF? NO; ADD MORPH? NO; ADD SCAN? NO; ATYPICAL LYMPHOCYTE FLAG 50 (0-99); FRAGMENT RBC FLAG 0 (0-99); HEMOGLOBIN 15.3 g/dL (12.6-16.3); LEFT SHIFT FLG 0 (0-99); LIPEMIA HEMOLYSIS FLAG 90 (0-99); MEAN CELL HEMOGLOBIN 31.1 pg (27.9-34.1); MEAN CELL VOLUME 91.5 fL (81.5-99.8); MEAN PLATELET VOLUME 9.7 fL (8.7-11.7); PLATELET CLUMPS FLAG 0 (0-99); PLATELET COUNT 242 10^3/uL (150-400); RED BLOOD CELL COUNT 4.92 10^6/uL (4.18-5.33); RED CELL DISTRIBUTION WIDTH 13.8 % (11.5-15.2)
[2016-10-25 00:15] LABS: INR 1.28 (0.83-1.16)
[2016-10-25] MEDS ORDERED: IOPAMIDOL (ISOVUE-300) 100 ML BTL IV ONE (00:17)
--- NOTE | 2016-10-25 00:22 | CPEKG ---
Heart Rate: 69 RR Interval: 870 P-R Interval: 184 QRSD Interval: 96 QT Interval: 436 QTC Interval: 467 P [place]: 75 QRS [place]: 47 T Wave [place]: -28 EKG Severity - ABNORMAL ECG - EKG Impression: SINUS RHYTHM EKG Impression: INFERIOR INFARCT, AGE INDETERMINATE EKG Impression: NON SPECIFIC ST/T WAVE CHANGES TO LATERAL LEADS Electronically Signed By: Trevon Matute 30-Oct-2016 16:39:09
[2016-10-25 00:42] LABS: ALANINE AMINOTRANSFERASE 28 IU/L (9-52); ALBUMIN 3.9 g/dL (3.5-5.0); ALKALINE PHOSPHATASE 79 IU/L (38-126); ANION GAP 10 mEq/L (8-16); ASPARTATE AMINOTRANSFERASE 29 IU/L (14-46); BILIRUBIN-CONJUGATED 0.4 mg/dL (0.0-0.5); BILIRUBIN-UNCONJUGATED 0.6 mg/dL (0.0-1.1); CALCIUM 8.7 mg/dL (8.5-10.4); CARBON DIOXIDE 26 mEq/l (22-31); CHLORIDE 99 mEq/L (97-110); GLOMERULAR FILTRATION RATE 54; GLUCOSE 176 mg/dL (70-100); POTASSIUM 5.4 mEq/L (3.5-5.2); SODIUM 135 mEq/L (134-144); TOTAL PROTEIN 6.8 g/dL (6.3-8.2)
[2016-10-25] MEDS ORDERED: niCARdipine/NACL/200 ML BAG IV ONE (02:07)
[2016-10-25] MEDS ORDERED: niCARdipine/NACL 200 ML IV SCH (02:30)
[2016-10-25] MEDS ORDERED: ONDANSETRON 4 MG/2 ML VIAL ONE ×3 (02:31→12:58)
[2016-10-25] MEDS ORDERED: ONDANSETRON 4 MG/2 ML VIAL IVP ONE ×2 (02:39→04:22)
[2016-10-25] MEDS ORDERED: D50W 25 GM/50 ML SYR IVP PRN (03:00)
[2016-10-25 03:02] LABS: ANION GAP 8 mEq/L (8-16); CALCIUM 8.2 mg/dL (8.5-10.4); CARBON DIOXIDE 29 mEq/l (22-31); CHLORIDE 100 mEq/L (97-110); CREATININE 0.9 mg/dL (0.6-1.0); GLOMERULAR FILTRATION RATE > 60; GLUCOSE 162 mg/dL (70-100); POTASSIUM 4.9 mEq/L (3.5-5.2); SODIUM 137 mEq/L (134-144)
--- NOTE | 2016-10-25 03:05 | PDGENHP ---
History and Physical - Chief Complaint headache, nausea, vomiting - History of Present Illness Patient is a 80/F with HTN, HLD, h/o bovine AV, CVA in 2009 and recent admission (10/18-10/24) for acute embolic ischemic CVA (b/l MCA, no residual deficits). In this hospitalization, she was found to severe R carotid artery stenosis, underwent R CEA on 10/20 and was also initiated on systemic anticoagulation on 10/23 for concern for possible occult Afib as a cause of her bilateral embolic CVA. She now presents with nausea, vomiting and headache. Patient was discharged in the afternoon of 10/24, she went out to dinner with her family. Some time after dinner, at around 8-9pm, patient began complaining of headache and neck pain. Shortly after, she also began complaining of nausea and vomited four times while at home and family noticed her neck girth appeared to be increasing. Given this progression of her symptoms, her family decided to bring her back to the [facility] ED. On my assessment, patient continued to complain of headache, nausea and continued to vomit once more in the ED. She denies any abdominal pain, diarrhea or urinary complaints. She was last administered lovenox 90mg at about 9pm. On arrival to the ED, patient was afebrile, but hypertensive. Her labs were unremarkable. She was given anti-emetics and CT head, and CT angio head/neck were obtained. CT neck revealed acute R carotid artery bleeding at site of recent CEA. Patient was started on a nicardipine drip, vascular surgery was consulted and the patient was admitted to the hospitalist service. On review with surgery service, it was determined that the patient be taken to the OR for surgical exploration of the site. History Information - Allergies/Home Medication List Allergies/Adverse Reactions: lidocaine Allergy (Severe, Verified 10/25/16 03:22) Swelling/neck,face,throat codeine [Codeine] Allergy (Intermediate, Verified 10/25/16 03:22) Other-Enter Comments promethazine HCl [From Phenergan] Allergy (Verified 10/25/16 03:04) Home Medications: Carvedilol [Coreg (*)] 6.25 mg PO BIDMEAL 10/17/16 [Last Taken 10/16/16 18:00] I have personally reviewed and updated: family history, medical history, social history, surgical history - Past Medical History Additional medical history: Hypertension. Hyperlipidemia. aortic valve stenosis s/p bovine replacment. 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 critical carotid artery stenosis, s/p R CEA. DM2, diet controlled - Surgical History Additional surgical history: Bovine aortic valve replacement. L1 and L3 kyphoplasty. cholecystectomy. R CEA - Social History Smoking Status: Former smoker (quit in 1996) Alcohol Use: None Drug Use: None Additional social history: Patient lives in independent living building, currently with her sister in law. Daughter lives nearby. Review of Systems ROS: 10pt was reviewed & negative except for what was stated in HPI & below Physical Exam Temp Pulse Resp BP Pulse Ox 36.3 C 74 16 161/77 H 93 10/24/16 23:17 10/25/16 02:42 10/25/16 02:42 10/25/16 02:42 10/25/16 02:42 O2 (L/minute) 3 Constitutional: obese, uncomfortable Eyes: PERRL, anicteric sclera, EOMI Ears, Nose, Mouth, Throat: other (no stridor, significant soft tissue swelling of R anterior neck) Cardiovascular: regular rate and rhythym, no murmur, rub, or gallop, pulses symmetric bilaterally, edema (in compression stockings), No JVD Peripheral Pulses: 2+: dorsalis-pedis (R), dorsalis-pedis (L) Respiratory: no respiratory distress, no rales or rhonchi, clear to auscultation Gastrointestinal: normoactive bowel sounds, soft, non-tender abdomen, no palpable masses, No tenderness, No guarding, No rebound Genitourinary: no bladder fullness, no bladder tenderness Skin: other (ecchymosis throughout neck, R neck surgical incision clean, nonerythematous) Neurologic: AAOx3, sensation intact bilaterally, CN II-XII Intact, No weakness, No numbness, No pronator drift, No facial droop Psychiatric: interacting appropriately, not anxious, not encephalopathic, thought process linear Lab Data & Imaging Review 10/25/16 00:00 10/25/16 02:05 WBC 10.91 10^3/uL (3.80-9.50) H 10/25/16 00:00 RBC 4.92 10^6/uL (4.18-5.33) 10/25/16 00:00 Hgb 15.3 g/dL (12.6-16.3) 10/25/16 00:00 Hct 45.0 % (38.0-47.0) 10/25/16 00:00 MCV 91.5 fL (81.5-99.8) 10/25/16 00:00 MCH 31.1 pg (27.9-34.1) 10/25/16 00:00 MCHC 34.0 g/dL (32.4-36.7) 10/25/16 00:00 RDW 13.8 % (11.5-15.2) 10/25/16 00:00 Plt Count 242 10^3/uL (150-400) 10/25/16 00:00 MPV 9.7 fL (8.7-11.7) 10/25/16 00:00 Neut % (Auto) 74.3 % (39.3-74.2) H 10/25/16 00:00 Lymph % (Auto) 15.5 % (15.0-45.0) 10/25/16 00:00 [place] % (Auto) 8.9 % (4.5-13.0) 10/25/16 00:00 Eos % (Auto) 0.5 % (0.6-7.6) L 10/25/16 00:00 Baso % (Auto) 0.2 % (0.3-1.7) L 10/25/16 00:00 Nucleat RBC Rel Count 0.0 % (0.0-0.2) 10/25/16 00:00 Absolute Neuts (auto) 8.11 10^3/uL (1.70-6.50) H 10/25/16 00:00 Absolute Lymphs (auto) 1.69 10^3/uL (1.00-3.00) 10/25/16 00:00 Absolute Monos (auto) 0.97 10^3/uL (0.30-0.80) H 10/25/16 00:00 Absolute Eos (auto) 0.05 10^3/uL (0.03-0.40) 10/25/16 00:00 Absolute Basos (auto) 0.02 10^3/uL (0.02-0.10) 10/25/16 00:00 Absolute Nucleated RBC 0.00 10^3/uL (0-0.01) 10/25/16 00:00 Immature Gran % 0.6 % (0.0-1.1) 10/25/16 00:00 Immature Gran # 0.07 10^3/uL (0.00-0.10) 10/25/16 00:00 PT 16.0 SEC (12.0-15.0) H 10/25/16 00:00 INR 1.28 (0.83-1.16) H 10/25/16 00:00 APTT 36.0 SEC (23.0-38.0) 10/25/16 00:00 Sodium 135 mEq/L (134-144) 10/25/16 00:00 Potassium 5.4 mEq/L (3.5-5.2) H 10/25/16 00:00 Chloride 99 mEq/L (97-110) 10/25/16 00:00 Carbon Dioxide 26 mEq/l (22-31) 10/25/16 00:00 Anion Gap 10 mEq/L (8-16) 10/25/16 00:00 BUN 40 mg/dL (7-23) H 10/25/16 00:00 Creatinine 1.0 mg/dL (0.6-1.0) 10/25/16 00:00 Estimated GFR 54 10/25/16 00:00 Glucose 176 mg/dL (70-100) H 10/25/16 00:00 Calcium 8.7 mg/dL (8.5-10.4) 10/25/16 00:00 Total Bilirubin 1.0 mg/dL (0.1-1.4) 10/25/16 00:00 Conjugated Bilirubin 0.4 mg/dL (0.0-0.5) 10/25/16 00:00 Unconjugated Bilirubin 0.6 mg/dL (0.0-1.1) 10/25/16 00:00 AST 29 IU/L (14-46) 10/25/16 00:00 ALT 28 IU/L (9-52) 10/25/16 00:00 Alkaline Phosphatase 79 IU/L (38-126) 10/25/16 00:00 Troponin I 0.020 ng/mL (0-0.034) 10/25/16 00:00 Total Protein 6.8 g/dL (6.3-8.2) 10/25/16 00:00 Albumin 3.9 g/dL (3.5-5.0) 10/25/16 00:00 Lipase 210.0 IU/L (23-300) 10/25/16 00:00 Visualized and Interpreted Chest x-ray results: Yes Chest X-Ray results: other (cardiomegaly, b/l effusions) Visualized and Interpreted imaging results: Yes Interpretation: CT head wo contrast: no acute intracranial abnormality. CT head /neck angio: R posterior carotid a active bleeding; no other sites of bleeding Visualized and Interpreted EKG results: Yes EKG Interpretation: Positive for: normal sinsus rhythm (inf q, no st/t wave abnormalities) Assessment & Plan Assessment: Patient is a 80/F with HTN, HLD, DM2, bovine aortic valve, recent embolic CVA infarct and critical R carotid a stenosis who underwent CEA on 10/20, was discharged home on 10/24 and presents later on the evening of discharge with R neck swelling, headache and nausea/vomiting. ED work up has revealed possible acute bleeding at site of recent CEA. Plan: # acute R carotid artery bleeding Patient to be taken emergently for surgical exploration. Will reverse heparin ( last lovenox dose taken at 9pm on 10/24) with protamine sulfate and f/u post-op surgery recommendations. # acute hypertension Patient acute hypertensive over ED course (SBP>200), so nicardipine drip was initiated with improvement in BP. Will continue strict BP control in the rebeca- operative period. # nausea, vomiting, headache Likely a manifestation of above acute problems. Patient denies any abdominal pain or abnormal BMs. Denies any blood in vomitus. Will cont symptomatic treatment with anti-emetics prn. # recent ischemic CVA Etiology of this CVA was thought to be embolic given its bilateral location, with source not obvious (patient without documented Afib). She was initiated on systemic anticoagulation on 10/23 for secondary prevention. Will hold anticoagulation at this time and re-assess indication long-term. # HLD Cont home statin. # dispo: admit to inpatient service for > 2 MN stay # gen: NPO DVT ppx: SCDs Full code Total critical care time spent in direct patient care and assessment is 30 minutes.
[2016-10-25] MEDS ORDERED: ceFAZolin 2 GM in NS 100 ML IV ONE (03:33)
[2016-10-25] MEDS ORDERED: PROTAMINE SULFATE 50 MG/5 ML VIAL IVP ONE ×4 (03:33→12:45)
[2016-10-25] MEDS ORDERED: SKIN ADHESIVE (DERMABOND) 1 EACH TP ONE ×2 (03:58→12:45)
[2016-10-25] MEDS ORDERED: BUPIVACAINE 0.5% 30 ML SDV ONE ×2 (03:59→12:45)
[2016-10-25] MEDS ORDERED: THROMBIN (RECOMBINANT) 20,000 UNIT SPRAY TP ONE ×2 (04:00→12:45)
[2016-10-25] MEDS ORDERED: ROCURONIUM 50 MG/5 ML VIAL ONE (04:19)
[2016-10-25] MEDS ORDERED: PROPOFOL 200 MG/20 ML VIAL ONE (04:20)
[2016-10-25] MEDS: fentaNYL 100 MCG/2 ML INJ IVP PRN ×2 (04:22→12:15)
--- NOTE | 2016-10-25 04:33 | GHP ---
[f rep st] PREOP HISTORY AND PHYSICAL DATE OF ADMISSION: 10/25/2016 A 80-year-old female, well known to me, who presents to the ER with hypertension on anticoagulation and increasing neck swelling. She is 1 less than 1 week status post a carotid endarterectomy on the right side for TIAs. She has been doing well until tonight. She was discharged from the hospital today, but developed nausea and vomiting and hypertension with a headache. She eventually came to he ER. A head CT was negative, but the neck CT shows a hematoma on the right neck with some arteria l extravasation. She was admitted at this time for neck exploration. We are trying to correct her Lovenox anticoagulation with protamine and the blood pressure has been controlled in the ER with a C ardene drip. She is also on Coumadin, but her INR is only 1.3. ALLERGIES: Lidocaine, codeine, Phenergan. PRESENT MEDICATION: Coreg, Coumadin, Lovenox and losartan. PAST MEDICAL HISTORY: Includes aortic valve replacement, CVAs, carotid endarterectomy, diabetes, hy pertension and hyperlipidemia. A kyphoplasty and a cholecystectomy and exploratory laparotomy for s mall bowel obstruction. REVIEW OF SYSTEMS: Reveals no present cardiac or pulmonary complaints. She is a nonsmoker. Review of systems otherwise is negative, except related to the present illness with headache and hypertens ion. PHYSICAL EXAMINATION: GENERAL: Reveals an alert, cooperative 80-year-old female. HEAD and NECK: Exam reveals slight thickening over tongue. She has swelling in the right neck. Steri-Strips are i n place. Has a nonpulsatile hematoma on the right neck. CHEST: Clear. CARDIAC: Exam reveals reg ular rhythm. ABDOMEN: Soft. EXTREMITIES: Full range of motion. Full pulses. NEUROLOGIC: Exam is symmetric with no acute findings. IMPRESSION: 1. Hypertension on anticoagulation. 2. Right neck hematoma with possible arterial extravasation. PLAN: Admit for blood pressure control, Lovenox reversal and neck exploration and drainage. Risks and options have been fully discussed and she wishes to proceed. /[id number]/MODL
[2016-10-25] MEDS ORDERED: fentaNYL 100 MCG/2 ML INJ ONE (04:51)
[2016-10-25] MEDS ORDERED: DEXAMETHASONE 4 MG/ML VIAL ONE ×2 (05:05→12:58)
[2016-10-25] MEDS ORDERED: PHENYLEPHRINE HCL 100 MCG/ML SYR ONE (05:09)
[2016-10-25] MEDS ORDERED: SUGAMMADEX SODIUM 200 MG/2 ML VIAL IVP ONE (05:43)
--- NOTE | 2016-10-25 05:57 | POSTOPPROG ---
Post Op Note Date of Operation: 10/25/16 Surgeon: Fabiano Kelly Anesthesiologist: BRODY Anesthesia: GET(General Endotracheal) Pre-op Diagnosis: NECK HEMATOMA Post-op Diagnosis: SAME Indication: NECK PAIN/ POSSIBLE EXTRAVSATION ON CT Procedure: DRAINAGE NECK HEMATOMA AND CAROTID EXPLORATION Findings: NO ACTIVE BLEEDING Inf/Abcess present in the surg proc area at time of surgery?: No Depth: Organ Space EBL: Minimal Complications: 0 Drains: Manuel Best Specimen(s): 0
[2016-10-25] MEDS ORDERED: OXYCODONE/APAP 5/325 TAB PO PRN (05:58)
[2016-10-25] MEDS ORDERED: ONDANSETRON 4 MG/2 ML VIAL IVP PRN (05:58)
[2016-10-25] MEDS ORDERED: HYDROmorphONE/DILAUDID 1 MG/ML SYR IVP PRN (05:58)
--- NOTE | 2016-10-25 07:53 | SOAPPROG ---
SOAP Progress Note Assessment/Plan: Assessment: postop comfortable/ voice ok/ afebrile/ minimal drainage bp 122/ 76 Plan:med-surg if bp stays under control 10/25/16 07:51 Objective: Vital Signs Temp Pulse Resp BP Pulse Ox 36.6 C 72 13 140/67 H 99 10/25/16 06:10 10/25/16 07:00 10/25/16 07:00 10/25/16 07:00 10/25/16 07:00 10/24/16 10/25/16 10/26/16 05:59 05:59 06:59 Intake Total 1200 Output Total 400 Balance 800 PT 16.0 SEC (12.0-15.0) H 10/25/16 00:00 INR 1.28 (0.83-1.16) H 10/25/16 00:00 ICD10 Worksheet Patient Problems: Problems Problem Status Onset Hematoma of neck Acute Hypertensive urgency Acute CAD - Coronary arteriosclerosis Active Diabetes mellitus type 2 Active Dyslipidemia Active Essential hypertension Active Low back pain Active Replacement of aortic valve Active Chronic Disease Mgmt/Transitional Care Acute Transient cerebral ischemia Acute
[2016-10-25] MEDS: D5W 1/2 NS W/ 20 KCl/L 1,000 ML IV SCH ×2 (07:54→23:48)
[2016-10-25 08:21] LABS: APTT 36.6 SEC (23.0-38.0); INR 1.54 (0.83-1.16); PROTIME(PATIENT) 18.5 SEC (12.0-15.0)
[2016-10-25] MEDS: INSULIN LISPRO 100 UNIT/ML SC SCH ×3 (09:25→17:27)
[2016-10-25 09:33] LABS: % IMMATURE GRANULYOCYTES 0.5 % (0.0-1.1); ABSOLUTE IMMATURE GRANULOCYTES 0.06 10^3/uL (0.00-0.10); ADD DIFF? NO; ADD MORPH? NO; ADD SCAN? NO; ATYPICAL LYMPHOCYTE FLAG 40 (0-99); FRAGMENT RBC FLAG 0 (0-99); HEMATOCRIT 41.5 % (38.0-47.0); HEMOGLOBIN 13.7 g/dL (12.6-16.3); LEFT SHIFT FLG 0 (0-99); LIPEMIA HEMOLYSIS FLAG 80 (0-99); MEAN CELL HEMOGLOBIN 30.9 pg (27.9-34.1); MEAN CELL VOLUME 93.5 fL (81.5-99.8); PLATELET CLUMPS FLAG 10 (0-99); PLATELET COUNT 196 10^3/uL (150-400); RED BLOOD CELL COUNT 4.44 10^6/uL (4.18-5.33); RED CELL DISTRIBUTION WIDTH 14.1 % (11.5-15.2)
[2016-10-25] MEDS: niCARdipine/NACL 200 ML IV SCH ×3 (10:39→23:48)
[2016-10-25] MEDS ORDERED: ACETAMINOPHEN 500 MG TAB PO PRN (10:47)
[2016-10-25] MEDS ORDERED: POLYETHYLENE GLYCOL 3350 17 GM PKT PO PRN (10:47)
[2016-10-25] MEDS: LOSARTAN POTASSIUM 50 MG TAB PO SCH (11:07)
[2016-10-25] MEDS ORDERED: PHYTONADIONE 5 MG in NS 50 ML IV ONE (12:30)
[2016-10-25] MEDS ORDERED: REMIFENTANIL HCL 1 MG VIAL ONE ×2 (12:58→13:51)
[2016-10-25] MEDS ORDERED: LIDOCAINE 2% 100 MG/5 ML SYR ONE (12:58)
[2016-10-25] MEDS ORDERED: PROPOFOL/EMULSION 500 MG/50 ML BOTTLE IV ONE ×2 (12:58→13:51)
[2016-10-25] MEDS ORDERED: LIDOCAINE HCL 160 MG/4 ML LTA KIT TP ONE (12:59)
[2016-10-25] MEDS ORDERED: epHEDrine SULFATE 10 MG/ML SYR ONE ×3 (13:23→14:13)
[2016-10-25] MEDS ORDERED: PHENYLEPHRINE 10 MG/ML SDV ONE (13:35)
[2016-10-25 16:07] LABS: HEMATOCRIT 35.6 % (38.0-47.0); HEMOGLOBIN 12.4 g/dL (12.6-16.3)
[2016-10-25] MEDS: CARVEDILOL 6.25 MG TAB PO SCH (17:27)
--- NOTE | 2016-10-25 19:04 | GCON ---
[f rep st] CONSULTATION CRITICAL CARE CONSULTATION REASON FOR CONSULTATION: Intensive care unit evaluation and medical management following right judge tid endarterectomy. HISTORY: The patient is a very pleasant 80-year-old woman with multiple medical problems. She was admitted late yesterday with nausea and vomiting after being discharged from the hospital earlier in the day. During that hospitalization, she was admitted for an acute ischemic stroke, and had a car otid endarterectomy done. She had an associated headache. She was found to have a hematoma, with a ctive extravasation of blood from the right carotid, in the area of the previous surgery. She was t hus taken to the operating room early this morning for control of her bleeding. She was returned to the intensive care unit in good condition, but, again, had to go back mid day for a recurrent hemat niki. At that surgery, no active bleeding was found. The hematoma was drained. She was given formerly [facility] fresh frozen plasma, as well as platelets, secondary to the fact that she was on aspirin on admis carol. PAST MEDICAL HISTORY: Remarkable for her recent acute ischemic stroke, known cerebral vascular dise ase, type 2 diabetes, history of aortic valve replacement, systemic hypertension, and hyperlipidemia . PAST SURGICAL HISTORY: Recent right carotid endarterectomy, aortic valve replacement, kyphoplasties , cholecystectomy. MEDICATIONS: At home, this included Coumadin, Cozaar, enoxaparin bridge, Coreg, Lipitor, aspirin, a nd p.r.n. medications. SOCIAL HISTORY: The patient lives independently. She has a sister and daughter in the area. Alcoh ol is negative. She smoked in the past, but has no known smoking-related lung disease. PHYSICAL EXAMINATION: GENERAL: Reveals a very pleasant, elderly woman who is in no distress. She has a compression bag on her right neck, and a drain in place. This was not taken off. VITAL SIGNS : Blood pressure is 115/55, heart rate 90, with sinus rhythm on the monitor, respiratory rate is 16 . On 5 L of oxygen, saturations are in the high 90s. She is afebrile. HEENT: Remarkable for the postoperative changes. CHEST: Clear bilaterally. HEART: Regular in rate and rhythm. There is a soft systolic murmur. ABDOMEN: Slightly overweight, soft nontender. Bowel sounds are present. EX TREMITIES: Remarkable for SCDs being in place. There is 1+ pedal edema. NEUROLOGIC: Examination is within normal limits/intact. LABORATORY DATA: White blood cell count is 12,000, hematocrit postoperatively 35, platelets are nor mal. PT was 18.5, prior to surgery, PTT 36. Basic metabolic panel is within normal limits, with th e exception of a BUN of 35. Glucoses have ranged between approximately 150 and 225. ASSESSMENT: 1. Status post carotid endarterectomy with rebleeding. She is now stable following return [facility] on two occasions, no active bleeding found on the last. 2. History of systemic hypertension. She was on a nicardipine drip. Her usual medications have be en resumed, and she is off the drip, with stable blood pressures. 3. History of other medical problems, as outlined above. 4. Acute blood loss anemia. Hematocrit is stable at 35.6. Hemoglobin and hematocrit are being fol lowed. PLAN: The patient will be kept in the intensive care unit and monitored. Followup laboratory will be obtained in the a.m. Appropriate pain control will be maintained. Her usual medications includi ng antihypertensives will be given. No anticoagulation will be considered at this time. Aspirin is being held. Further plans and recommendations will be made based on her progress over the next 12-24 hours. /[id number]/MODL
[2016-10-25] MEDS: SENNOSIDES/DOCUSATE SODIUM TAB PO SCH (22:21)
[2016-10-26] MEDS: niCARdipine/NACL 200 ML IV SCH (04:53)
[2016-10-26 05:03] LABS: HEMATOCRIT 33.2 % (38.0-47.0); HEMOGLOBIN 10.9 g/dL (12.6-16.3)
[2016-10-26 05:18] LABS: ANION GAP 7 mEq/L (8-16); CALCIUM 8.4 mg/dL (8.5-10.4); CARBON DIOXIDE 29 mEq/l (22-31); CHLORIDE 101 mEq/L (97-110); CREATININE 0.8 mg/dL (0.6-1.0); GLOMERULAR FILTRATION RATE > 60; GLUCOSE 198 mg/dL (70-100); POTASSIUM 4.9 mEq/L (3.5-5.2); SODIUM 137 mEq/L (134-144)
[2016-10-26 05:30] LABS: INR 1.15 (0.83-1.16); PROTIME(PATIENT) 14.7 SEC (12.0-15.0)
[2016-10-26] MEDS: SENNOSIDES/DOCUSATE SODIUM TAB PO SCH ×3 (08:21→21:29)
[2016-10-26] MEDS: CARVEDILOL 6.25 MG TAB PO SCH ×2 (08:21→18:26)
[2016-10-26] MEDS: ATORVASTATIN CALCIUM 20 MG TAB PO SCH (08:22)
[2016-10-26] MEDS: LOSARTAN POTASSIUM 50 MG TAB PO SCH (08:22)
[2016-10-26] MEDS: INSULIN LISPRO 100 UNIT/ML SC SCH ×3 (08:23→18:27)
--- NOTE | 2016-10-26 10:03 | POSTOPPROG ---
Post Op Note Date of Operation: 10/25/16 Surgeon: Fabiano Kelly Anesthesiologist: TRISTIN Anesthesia: GET(General Endotracheal) Pre-op Diagnosis: RT NECK HEMATOMA Post-op Diagnosis: SAME Indication: RECURRENT BLEEDING Procedure: NECK EXPLORATION AND DRAINAGE OF HEMATOMA Findings: NO ACTIVE BLEEDING BUT 50CC HEMATOMA Inf/Abcess present in the surg proc area at time of surgery?: No Depth: Organ Space EBL: Minimal Complications: 0 Drains: Manuel Best
--- NOTE | 2016-10-26 10:27 | GOP ---
[f rep st] OPERATIVE REPORT DATE OF OPERATION: 10/25/2016 SURGEON: Fabiano Kelly MD NATIONAL GUARD MEMBER: There was no assistant scientist. ANESTHESIOLOGIST: Dr. Reynoso. PREOPERATIVE DIAGNOSIS: Neck hematoma. POSTOPERATIVE DIAGNOSIS: Neck hematoma. PROCEDURE PERFORMED: Neck exploration with hematoma drainage. FINDINGS: Patient was found to have old blood in the superficial spaces as well as the deep space i n the neck, but no active bleeding could be identified. INDICATIONS: The patient is approximately 5 days status post carotid endarterectomy. She developed vomiting, hypertension, and headache today and vomited several times, and then with swelling in her neck. CT scan suggested extravasation of contrast and a moderate hematoma. DESCRIPTION OF PROCEDURE: Patient taken to the operating room, where she received satisfactory gene ral endotracheal anesthesia by Dr. Reynoso. Placed in supine position, prepped and draped in u sual sterile fashion. The old incision was opened, taking out the skin silvia. Dissection extende d down through the platysma, where hematoma was evacuated. The deeper layer of the superficial fasc ia was incised. An additional hematoma was evacuated, which was much more liquified. There was no fresh bleeding and no fresh clot or fresh blood encountered. The wound was copiously irrigated. Al l free venous debris was removed. The suture line appeared to be completely intact with no evidence of any bleeding. Careful search throughout the surgical site revealed no source of hemorrhage. Af ter 30 minutes of evaluating and searching, it was elected to close the incision. A 15-Maltese FANNY ta was brought out through a separate stab incision and secured to the skin with a silk suture. Th e subcu and platysma were then closed with a running 3-0 Vicryl and the skin with skin silvia. Wou nds were infiltrated with 0.5% Marcaine. Topical thrombin had been placed in the surgical site. Sh e tolerated this procedure quite well. Blood loss from this procedure was less than 5 cc. There we re no complications. Taken to the recovery room in good condition. /[id number]/MODL
--- NOTE | 2016-10-26 12:27 | GOP ---
[f rep st] OPERATIVE REPORT DATE OF OPERATION: 10/25/2016 SURGEON: Fabiano Kelly MD WELFARE OFFICER: None. ANESTHESIOLOGIST: Dr. De La Torre PREOPERATIVE DIAGNOSIS: Neck hematoma. POSTOPERATIVE DIAGNOSIS: Neck hematoma. PROCEDURE PERFORMED: Neck exploration and drainage of hematoma. FINDINGS: There was no active bleeding again encountered. There was a fresh hematoma and blood in the cavity. INDICATIONS: The patient had previously had a hematoma drained in the right neck with no bleeding s ource found; however, she recurred with her neck hematoma some 12 hours later. DESCRIPTION OF PROCEDURE: Patient taken to the operating room, where she received satisfactory gene ral endotracheal anesthesia by Dr. Tellez. She was placed in the supine position, and prepped and draped in the usual sterile fashion. Her old incision was opened down through the platysma and a fresh hematoma was encountered. This wa s evacuated, and then a careful search again was done for any bleeding source and none of significan ce could be found. The carotid was completely mobilized. There was no unusual bleeding spot. The s uture line was sized and there was no source of bleeding. Multiple small suspicious structures were hemoclipped, but there was no real active bleeding to be sure we were getting the cause. The wound was irrigated. Topical thrombin and some Sly powder were both placed in the incision. She was given a platelet transfusion, as well as 2 units of FFP during the procedure. The wound wa s then closed with a running 3-0 Vicryl for the cervical fascia, a running 3-0 Vicryl suture for the platysma, and skin silvia for the skin. All layers were infiltrated with 0.5% Marcaine. A drain was left in place after being irrigated. She tolerated the procedure well. She was taken to the recovery room in satisfactory condition. Th ere were no complications. /[id number]/MODL
[2016-10-26] MEDS: HYDROCODONE/APAP 5/325 TAB PO PRN (13:11)
--- NOTE | 2016-10-26 13:43 | HOSPPROG ---
Hospitalist Progress Note Assessment/Plan: 80 yo F w recent CEA now w postop bleeding postop bleeding: appears to have stopped FANNY drain in place bp at goal off anticoag ?AF: as far as I can tell, there has not been documented AF started on warfarin during last admit on basis of multifocal cva and high CHADS Vasc worth noting that embolic cva could be from b/l carotid disease given bleeding complications, may be reasonable to do outpatient monitor and prove AF prior to systemic anticoag DM: not on any rx blood sugars at goal htn: off nicardipine continue losartan proph: pharm VTE proph contraindicated given above carotid disease: antiplatelet indicated will discuss timing w dr austin not today dispo: inpt Subjective: to OR X 2 yesterday. case d/w [employer] SUPERVIS[employer] Julio Cesar. images reviewed. no further hematoma Objective: Vital Signs Temp Pulse Resp BP Pulse Ox 36.7 C 77 17 97/61 L 97 10/26/16 13:12 10/26/16 13:12 10/26/16 13:12 10/26/16 13:12 10/26/16 13:12 Laboratory Results 10/26/16 05:00 10/26/16 05:00 10/25/16 10/26/16 10/27/16 04:59 05:59 05:59 Intake Total Output Total Balance PT 14.7 SEC (12.0-15.0) 10/26/16 05:00 INR 1.15 (0.83-1.16) 10/26/16 05:00 - Physical Exam Constitutional: no apparent distress, appears nourished Eyes: PERRL, anicteric sclera Ears, Nose, Mouth, Throat: other (sersanguinous drainage in FANNY. no hematoma) Cardiovascular: regular rate and rhythym Respiratory: no respiratory distress Gastrointestinal: normoactive bowel sounds Genitourinary: No silva in urethra Skin: warm, normal color Musculoskeletal: full muscle strength Neurologic: AAOx3, sensation intact bilaterally Psychiatric: interacting appropriately ICD10 Worksheet Patient Problems: Problems Problem Status Onset CAD - Coronary arteriosclerosis Active Replacement of aortic valve Active Diabetes mellitus type 2 Active Essential hypertension Active Dyslipidemia Active Low back pain Active Chronic Disease Mgmt/Transitional Care Acute Transient cerebral ischemia Acute Hematoma of neck Acute Hypertensive urgency Acute
--- NOTE | 2016-10-26 16:02 | SOAPPROG ---
SOAP Progress Note Assessment/Plan: Assessment/Plan: 80 Y F s/p RCEA last admission, readmit with neck hematoma after vomiting at home. TO OR x 2 yesterday for evacuation of hematoma and exploration. Neck site clean, ecchymotic, but no further sign of bleeding. FANNY draining, serosanguinous, with expected outputs. Neuro exam stable. Ok to transfer to floor. Would hold all anticoagulants for now. Will start low dose ASA tomorrow. S: very talkative today. no complaints. feels fine. swallowing and breathing fine. not much pain. eating. O: alert, nad inc cdi, +ecchymosis, no erythema, drain serosanguinous ctan anteriorly rrr abd soft calrk x 4 10/26/16 15:58 Objective: Vital Signs Temp Pulse Resp BP Pulse Ox 36.7 C 77 17 97/61 L 97 10/26/16 13:12 10/26/16 13:12 10/26/16 13:12 10/26/16 13:12 10/26/16 13:12 Laboratory Results 10/26/16 05:00 10/26/16 05:00 10/25/16 10/26/16 10/27/16 04:59 05:59 05:59 Intake Total Output Total Balance PT 14.7 SEC (12.0-15.0) 10/26/16 05:00 INR 1.15 (0.83-1.16) 10/26/16 05:00 ICD10 Worksheet Patient Problems: Problems Problem Status Onset Hematoma of neck Acute Hypertensive urgency Acute CAD - Coronary arteriosclerosis Active Diabetes mellitus type 2 Active Dyslipidemia Active Essential hypertension Active Low back pain Active Replacement of aortic valve Active Chronic Disease [facility]/Transitional Care Acute Transient cerebral ischemia Acute
[2016-10-27] MEDS: INSULIN LISPRO 100 UNIT/ML SC SCH ×3 (07:43→17:39)
[2016-10-27] MEDS: ATORVASTATIN CALCIUM 20 MG TAB PO SCH (08:03)
[2016-10-27] MEDS: LOSARTAN POTASSIUM 50 MG TAB PO SCH (08:03)
[2016-10-27] MEDS: ASPIRIN 81 MG CHEWABLE TAB PO SCH (08:03)
[2016-10-27] MEDS: CARVEDILOL 6.25 MG TAB PO SCH ×2 (08:03→17:47)
[2016-10-27] MEDS: SENNOSIDES/DOCUSATE SODIUM TAB PO SCH ×2 (08:28→20:45)
--- NOTE | 2016-10-27 10:23 | SOAPPROG ---
SOAP Progress Note Assessment/Plan: Assessment/Plan: 80 Y F s/p RCEA last admission, readmit with neck hematoma after vomiting at home. TO OR x 2 yesterday for evacuation of hematoma and exploration. No major changes overnight. Neck site clean, ecchymotic, but no further sign of bleeding. FANNY draining, serosanguinous, with expected outputs. Neuro exam stable. Would hold all anticoagulants for now. Will start low dose ASA tomorrow. Dispo: likely in am. Nervous about going home too soon after recent events. Denies new weakness or dizziness. S: no complaints. feels fine. swallowing and breathing fine. not much pain. O: alert, nad inc cdi, +ecchymosis, no erythema, drain serosanguinous ctab anteriorly rrr abd soft clark x 4 10/27/16 10:22 Objective: Vital Signs Temp Pulse Resp BP Pulse Ox 37.2 C 78 18 160/85 H 91 L 10/27/16 07:29 10/27/16 07:29 10/27/16 07:29 10/27/16 07:29 10/27/16 07:29 Laboratory Results 10/26/16 05:00 10/26/16 05:00 10/26/16 10/27/16 10/28/16 05:59 05:59 05:59 Intake Total 200 Output Total 1725 Balance -1525 PT 14.7 SEC (12.0-15.0) 10/26/16 05:00 INR 1.15 (0.83-1.16) 10/26/16 05:00 ICD10 Worksheet Patient Problems: Problems Problem Status Onset Hematoma of neck Acute Hypertensive urgency Acute CAD - Coronary arteriosclerosis Active Diabetes mellitus type 2 Active Dyslipidemia Active Essential hypertension Active Low back pain Active Replacement of aortic valve Active Chronic Disease [facility]/Transitional Care Acute Transient cerebral ischemia Acute
--- NOTE | 2016-10-27 11:35 | HOSPPROG ---
Hospitalist Progress Note Assessment/Plan: 80 yo F w recent CEA now w postop bleeding postop bleeding: appears to have stopped FANNY drain in place bp at goal off anticoag asa restarted ?AF: has high CHADS Vasc, h/o pAF but is s/p MAZE procedure and has not had recurrent AF demonstrated here certainly bihemispheric cva s/o proximal source of embolism such as from AF, but not proven anticoag on hold for now I think a linq recorder is indicated to prove presence or absence of AF before committing to anticoag given current complications discussed w cardiology; they will see DM: not on any rx blood sugars at goal htn: off nicardipine continue losartan proph: pharm VTE proph contraindicated given above carotid disease: antiplatelet indicated will discuss timing w dr austin not today dispo: inpt Subjective: drain still in. case d/w jessa wagner. aspirin restarted. tele: no AF (interp by me) Objective: Vital Signs Temp Pulse Resp BP Pulse Ox 36.8 C 67 18 124/67 H 95 10/27/16 11:10 10/27/16 11:10 10/27/16 11:10 10/27/16 11:10 10/27/16 11:10 Laboratory Results 10/26/16 05:00 10/26/16 05:00 10/26/16 10/27/16 10/28/16 05:59 05:59 05:59 Intake Total 200 Output Total 1725 Balance -1525 PT 14.7 SEC (12.0-15.0) 10/26/16 05:00 INR 1.15 (0.83-1.16) 10/26/16 05:00 - Physical Exam Constitutional: no apparent distress, appears nourished, not in pain Eyes: PERRL, anicteric sclera, EOMI Ears, Nose, Mouth, Throat: moist mucous membranes, hearing normal, other (neck w ecchymosis, not full, no recurrent hematoma) Cardiovascular: regular rate and rhythym, no murmur, rub, or gallop Respiratory: no respiratory distress, no rales or rhonchi Gastrointestinal: normoactive bowel sounds, soft, non-tender abdomen Genitourinary: No silva in urethra Skin: warm, normal color Musculoskeletal: full muscle strength, no muscle tenderness Neurologic: AAOx3 ICD10 Worksheet Patient Problems: Problems Problem Status Onset Hematoma of neck Acute Hypertensive urgency Acute CAD - Coronary arteriosclerosis Active Diabetes mellitus type 2 Active Dyslipidemia Active Essential hypertension Active Low back pain Active Replacement of aortic valve Active Chronic Disease Mgmt/Transitional Care Acute Transient cerebral ischemia Acute
[2016-10-27] MEDS: HYDROCODONE/APAP 5/325 TAB PO PRN (15:04)
--- NOTE | 2016-10-27 21:41 | SOAPPROG ---
SOAP Progress Note Assessment/Plan: Assessment: postop comfortable/ voice ok/ afebrile/ minimal drainage bp 122/ 76 Plan:med-surg if bp stays under control 10/25/16 07:51 10/27/16 21:40 wound okay / minimal drainage / neuro intact / home per Internal Medicine Objective: Vital Signs Temp Pulse Resp BP Pulse Ox 36.4 C 65 18 127/71 H 98 10/27/16 20:30 10/27/16 20:30 10/27/16 20:30 10/27/16 20:30 10/27/16 20:30 Laboratory Results 10/26/16 05:00 10/26/16 05:00 10/26/16 10/27/16 10/28/16 05:59 05:59 05:59 Intake Total 200 300 Output Total 1725 800 Balance -1525 -500 PT 14.7 SEC (12.0-15.0) 10/26/16 05:00 INR 1.15 (0.83-1.16) 10/26/16 05:00 ICD10 Worksheet Patient Problems: Problems Problem Status Onset Hematoma of neck Acute Hypertensive urgency Acute CAD - Coronary arteriosclerosis Active Diabetes mellitus type 2 Active Dyslipidemia Active Essential hypertension Active Low back pain Active Replacement of aortic valve Active Chronic Disease Mgmt/Transitional Care Acute Transient cerebral ischemia Acute
[2016-10-28] MEDS: LOSARTAN POTASSIUM 50 MG TAB PO SCH (08:49)
[2016-10-28] MEDS: CARVEDILOL 6.25 MG TAB PO SCH ×2 (08:49→16:57)
[2016-10-28] MEDS: ATORVASTATIN CALCIUM 20 MG TAB PO SCH (08:50)
[2016-10-28] MEDS: INSULIN LISPRO 100 UNIT/ML SC SCH ×3 (09:03→17:00)
[2016-10-28] MEDS: SENNOSIDES/DOCUSATE SODIUM TAB PO SCH (09:03)
--- NOTE | 2016-10-28 09:59 | SOAPPROG ---
SOAP Progress Note Assessment/Plan: Assessment/Plan: 80 Y F s/p RCEA last admission, readmit with neck hematoma after vomiting at home. TO OR x 2 yesterday for evacuation of hematoma and exploration. Doing well. Neck is stable. FANNY drainage down. Removed drain. D/w medicine. Holding anticoagulation now. Considering linq recorder to investigate for afib and anticoagulation needs. Uncertain if this will be in or outpatient with cards. Dispo: Ok to d/c to home from surgical standpoint--will need to clarify cardiology plans. Would continue ASA. S: no complaints. feels fine. swallowing and breathing fine. not much pain. O: alert, nad inc cdi, +ecchymosis, no erythema, drain serosanguinous, scant ctab anteriorly rrr abd soft clark x 4 10/28/16 09:54 Objective: Vital Signs Temp Pulse Resp BP Pulse Ox 36.6 C 61 16 159/69 H 85 L 10/28/16 07:46 10/28/16 07:46 10/28/16 07:46 10/28/16 07:46 10/28/16 09:04 Laboratory Results 10/26/16 05:00 10/26/16 05:00 10/27/16 10/28/16 10/29/16 05:59 05:59 05:59 Intake Total 200 600 Output Total 1725 2160 700 Balance -1525 -1560 -700 PT 14.7 SEC (12.0-15.0) 10/26/16 05:00 INR 1.15 (0.83-1.16) 10/26/16 05:00 ICD10 Worksheet Patient Problems: Problems Problem Status Onset Hematoma of neck Acute Hypertensive urgency Acute CAD - Coronary arteriosclerosis Active Diabetes mellitus type 2 Active Dyslipidemia Active Essential hypertension Active Low back pain Active Replacement of aortic valve Active Chronic Disease Mgmt/Transitional Care Acute Transient cerebral ischemia Acute
--- NOTE | 2016-10-28 15:26 | PDCARPN ---
Cardiology Progress Note Assessment/Plan: 80-year-old female usually followed by Dr. Miguel. Has a history of prior paroxysmal atrial fibrillation, aortic valve replacement, and CAD with prior two -vessel CABG. As part of her open heart surgery in 2010, she underwent intraoperative Maze procedure and resection of the left atrial appendage. She had not been on systemic anticoagulation in subsequent years because there was no evidence for recurrent atrial fibrillation. She was admitted earlier this month with a CVA. Has made a good recovery. Was found to have significant bilateral carotid disease and underwent a right CEA during her last hospitalization. Because of her stroke and a prior history of PAF, the recommendation was made for her to resume systemic anticoagulation with warfarin. Unfortunately, she was readmitted with significant hematoma formation around the operative site. At this point, the risk/benefit ratio for her permanent systemic anticoagulation comes into question. Dr. Miguel had mentioned that he would discuss an implantable loop recorder with her in outpatient setting. Given the that have led to her readmission, we will proceed with this now. Dr. Kelly plans to perform a left carotid endarterectomy in November. She may be on systemic anticoagulation until that point in time. However, a LINQ implantable loop recorder will provide continuous surveillance for A-fib and help guide decision making about systemic anticoagulation in the future. 10/28/16 15:19 Subjective: No cardiac complaints/ Reviewed/Discussed With: family Objective: Vital Signs (8 Hrs) Temp Pulse Resp BP Pulse Ox 10/28/16 11:39 36.7 C 66 20 125/60 H 93 10/28/16 09:04 85 L 10/28/16 07:46 36.6 C 61 16 159/69 H 100 Intake/Output (24 Hrs) 10/27/16 10/28/16 10/29/16 05:59 05:59 05:59 Intake Total 200 600 Output Total 1725 2160 700 Balance -1525 -1560 -700 Intake: Oral (ml) 200 600 Output: Urine (ml) 1675 2150 700 Toilet 1675 2150 700 Wound Drainage (ml) 30 10 Right Neck Manuel Best 30 10 Wound Drainage (ml) 20 #1 Right Neck Manuel 20 Best Other: Intake Quantity Yes Sufficient Output Comment Toilet has voided within 6 hours of Smalls removal Number of Voids Toilet 3 3 Result Diagrams: 10/26/16 05:00 10/26/16 05:00 - Physical Exam Constitutional: no apparent distress Eyes: anicteric sclera Ears, Nose, Mouth, Throat: moist mucous membranes, other (significant hematoma over right neck) Cardiovascular: regular rate and rhythm, systolic murmur Respiratory: clear to auscultate bilat Neurologic: AAOx3 Psychiatric: not anxious ICD10 Worksheet Patient Problems: Problems Problem Status Onset CAD - Coronary arteriosclerosis Active Replacement of aortic valve Active Diabetes mellitus type 2 Active Essential hypertension Active Dyslipidemia Active Low back pain Active Chronic Disease [facility]/Transitional Care Acute Transient cerebral ischemia Acute Hematoma of neck Acute Hypertensive urgency Acute
[2016-10-28] MEDS ORDERED: LIDOCAINE 1% 30 ML SDV ONE (15:29)
[2016-10-28] MEDS ORDERED: BUPIVACAINE 0.5% 10 ML SDV MISC ONE (16:00)
[2016-10-28] MEDS ORDERED: LIDOCAINE 1% 30 ML SDV MISC ONE (16:00)
[2016-10-28 16:01] VITALS: RESP 18; O2SAT 97
--- NOTE | 2016-10-28 16:43 | CPR ---
[f rep st] NONINVASIVE CARDIAC PROCEDURE REPORT DATE OF PROCEDURE: 10/28/2016 PROCEDURE PERFORMED: Implantation of a [employer] LINQ loop recorder. INDICATION: This is a 80-year-old female with a history of paroxysmal atrial fibrillation in the [facility]. In 2010, she underwent open-heart surgery which consisted of bioprosthetic aortic valve replace ment, 2-vessel CABG, intraoperative Maze procedure, and resection of left atrial appendage. She was recently admitted with a CVA. She was found to have significant bilateral carotid disease. A [facility] carotid endarterectomy was performed and because of her prior history, recommendation was made for her to be discharged on systemic anticoagulant coagulation. She was sent home with Lovenox as a br idge to warfarin therapy. She had not been on systemic anticoagulation since her open heart surgery because of the lack of evidence of any recurrent atrial fibrillation. She was then readmitted to [facility] with a significant hematoma around her right carotid endarterectomy operative site. At this point, it was felt that continuous and reliable monitoring for paroxysmal atrial fibrillation w as important to guide decision-making about whether or not to continue with systemic anticoagulation . DETAILS OF PROCEDURE: The left chest was prepped and draped in sterile fashion. The skin over the 4th intercostal space was anesthetized with subcutaneous bupivacaine (patient has a lidocaine allerg y). A small incision was made and the insertion tool was used to insert the Medtronic LINQ recorder. Th e incision was closed with 2 skin silvia. COMPLICATIONS: None. CONCLUSION: Uneventful implantation of a Med[employer] LINQ loop recorder. /[id number]/MODL
[2016-10-28] MEDS: ASPIRIN 81 MG CHEWABLE TAB PO SCH (16:46)
[2016-10-28 16:49] VITALS: BP 127/71; PULSE 66; TEMP 98.5
--- NOTE | 2016-10-28 17:02 | PDIAF ---
- Diagnosis Code Status: Full Code - Medication Management Discharge Medications: Medications to Continue on Transfer Carvedilol [Coreg (*)] 6.25 mg PO BIDMEAL 10/17/16 [Last Taken 10/24/16] Acetaminophen [Tylenol ES 500 mg (*)] 1,000 mg PO Q6HRS PRN #0 tab 10/24/16 [ Last Taken Unknown] Aspirin EC [Aspirin EC 81 mg (*)] 81 mg PO DAILY #0 tab 10/24/16 [Last Taken 06/02] Atorvastatin Calcium [Lipitor 20 mg (*)] 20 mg PO DAILY #30 tab 10/24/16 [Last Taken 10/24/16] Losartan Potassium [Cozaar 50 mg (*)] 50 mg PO DAILY #30 tab 10/24/16 [Last Taken 10/24/16] Polyethylene Glycol 3350 [Miralax 17 gm (*)] 17 gm PO DAILY PRN #0 pkt 10/24/16 [Last Taken Unknown] Sennosides/Docusate Sodium [Senokot-S] 1 - 2 tab PO BID #0 tab 10/24/16 [Last Taken Unknown] Discharge Medications: Refer to the Discharge Home Medication list for PRN reason. - Orders Services needed: Home Care, Registered Nurse, Physical Therapy, Occupational Therapy Home Care Face to Face: I certify that this patient was under my care and that I had the required [id number] encounter meeting the encounter requirements on the discharge day. My findings support the fact that the patient is homebound as defined in CMS Chapter 7 Medicare Benefits Manual 30.1.1, The condition of the patient is such that there exists a normal inability to leave home and consequently, leaving home would require a considerable and taxing effort. Diet Recommendation: no restrictions on diet Diet Texture: Regular Texture Diet - Follow Up Care Current Providers and Referrals: MORENITA JOAQUIN [Other] - As per Instructions Fabiano Kelly MD [Medical Doctor] - (f/u late next week or early the following week for staple removal and post op visit)
--- NOTE | 2016-10-28 17:02 | PDDCSUM ---
Discharge Summary Discharge Summary: Dates of service: 10/25-10/28/16 Discharge dx: # post operative CEA bleeding # atrial fibrillation # recent CVA # DM # HTN # carotid disease # acute hypoxic respiratory failure Consultations: general surgery, cardiology, pulmonary Procedures performed: head ct, head/neck CTA, exploration and drainage of neck hematoma, LINQ recorder implantation Hospital course by problem: postop bleeding: appears to have stopped, drain removed, resumed on ASA, holding off on decision to resume AC based on LINQ recorder as anext ?AF: has high CHADS Vasc, h/o pAF but is s/p MAZE procedure and has not had recurrent AF demonstrated here certainly bihemispheric cva s/o proximal source of embolism such as from AF, but not proven anticoag on hold for now, LINQ recorder placed and decision to resume AC will depend on that Acute hypoxic respiratory failure: has been requiring 2L of o2 to maintain o2 sats in 90s, cxr showing CM and CHF as well as atelectasis in the setting of recent surgery and fluids being given in the hospital. D/c on supplemental o2, will f/u with cardiology but expect volume status to improve as well as atelectasis now that she is going home. acute exacerbation of diastolic heart failure: recent echo showing preserved EF , again suspect slight exacerbation related to volume received in hospital, will f/u with cardiology DM: not on any rx blood sugars at goal htn: off nicardipine continue losartan proph: pharm VTE proph contraindicated given above carotid disease: resumed on asa Dc home with home health F/u with gen surg/cardiology/PCP Items for f/u: respiratory status and need for ongoing O2, data from LINQ to eval for burden of a fib > 35 minutes spent in dc of patient, more than half in coordination of care
== END 2016-10-28 19:17 | disposition home health service (06) | DRG 907 ==
LOC: F2N 10-25 03:30 → F2W 10-26 12:30
PROVIDERS: ADMIT Internal Medicine; ATTEND Internal Medicine
PROC: 0J940ZZ Drainage of Right Neck Subcutaneous Tissue and Fascia, Open Approach (ICD-10-PCS; principal; 2016-10-25 04:48)
PROC: 30233R1 Transfusion of Nonautologous Platelets into Peripheral Vein, Percutaneous Approach (ICD-10-PCS; 2016-10-25 04:48)
PROC: 0J940ZZ Drainage of Right Neck Subcutaneous Tissue and Fascia, Open Approach (ICD-10-PCS; 2016-10-25 04:48)
PROC: 30233K1 Transfusion of Nonautologous Frozen Plasma into Peripheral Vein, Percutaneous Approach (ICD-10-PCS; 2016-10-25 04:48)
PROC: 0WH83YZ Insertion of Other Device into Chest Wall, Percutaneous Approach (ICD-10-PCS; 2016-10-28)
DX: M96.841 Postprocedural hematoma of a musculoskeletal structure following other procedure (principal); D62 Acute posthemorrhagic anemia; I11.0 Hypertensive heart disease with heart failure; I50.33 Acute on chronic diastolic (congestive) heart failure; J96.01 Acute respiratory failure with hypoxia; E11.9 Type 2 diabetes mellitus without complications; I25.10 Atherosclerotic heart disease of native coronary artery without angina pectoris; Z95.1 Presence of aortocoronary bypass graft; Z95.3 Presence of xenogenic heart valve; Z86.73 Personal history of transient ischemic attack (TIA), and cerebral infarction without residual deficits; Z79.01 Long term (current) use of anticoagulants
CPT/HCPCS: 96365; 97116-GP; 97161-GP; 97166-GO; 97530-GO; 97535-GO; C1764; G8978-GP-CI; G8979-GP-CI; G8987-GO-CJ; G8988-GO-CI; J0690; J1100; J1644; J2001; J2370; J2405; J2704; J2720; J3010; J3430; P9017; P9035; Q9967

== ENCOUNTER 2016-10-29 17:31 | Emergency (ER) | payer OTHER, MEDICAID ==
[2016-10-29 18:54] LABS: % IMMATURE GRANULYOCYTES 0.5 % (0.0-1.1); ABSOLUTE IMMATURE GRANULOCYTES 0.05 10^3/uL (0.00-0.10); ADD DIFF? NO; ADD MORPH? NO; ADD SCAN? NO; ATYPICAL LYMPHOCYTE FLAG 20 (0-99); FRAGMENT RBC FLAG 0 (0-99); HEMATOCRIT 39.8 % (38.0-47.0); HEMOGLOBIN 13.5 g/dL (12.6-16.3); LEFT SHIFT FLG 0 (0-99); LIPEMIA HEMOLYSIS FLAG 90 (0-99); MEAN CELL HEMOGLOBIN 32.1 pg (27.9-34.1); MEAN CELL HEMOGLOBIN CONCENTR. 33.9 g/dL (32.4-36.7); MEAN CELL VOLUME 94.8 fL (81.5-99.8); MEAN PLATELET VOLUME 9.5 fL (8.7-11.7); PLATELET CLUMPS FLAG 10 (0-99); PLATELET COUNT 279 10^3/uL (150-400); RED CELL DISTRIBUTION WIDTH 14.2 % (11.5-15.2)
[2016-10-29 19:57] LABS: INR 1.08 (0.83-1.16); PROTIME(PATIENT) 13.9 SEC (12.0-15.0)
[2016-10-29 19:59] LABS: APTT 25.2 SEC (23.0-38.0)
[2016-10-29] MEDS ORDERED: IOPAMIDOL (ISOVUE-300) 100 ML BTL IV ONE (20:14)
[2016-10-29 20:15] LABS: ANION GAP 9 mEq/L (8-16); CALCIUM 9.1 mg/dL (8.5-10.4); CARBON DIOXIDE 28 mEq/l (22-31); CHLORIDE 97 mEq/L (97-110); CREATININE 0.8 mg/dL (0.6-1.0); GLOMERULAR FILTRATION RATE > 60; GLUCOSE 137 mg/dL (70-100); SODIUM 134 mEq/L (134-144)
--- NOTE | 2016-10-29 20:18 | EDPHY ---
H & P Time Seen by Provider: 10/29/16 18:46 HPI/ROS: CHIEF COMPLAINT: Headache, neck incisional discomfort Limitations: [employer] downtime, unable to access medical record; history obtained through the pt and her family HISTORY OF PRESENT ILLNESS: 80 year old female presents with headache and incisional discomfort. On 10/17/2016 she presented to the ED with slurred speech and drooling. She was diagnosed with a TIA. Carotid ultrasound revealed 99% occlusion of the right internal carotid artery. She underwent a carotid endarterectomy on 10/20/2016. She was discharged home on Coumadin and Lovenox on 05/26/2017. She developed a postoperative hematoma due to a leaking carotid artery the following day and had hematoma evacuation. She was discharged home yesterday on home oxygen 2l by [place]. She was feeling fine this morning. She now has a mild headache and states that her incision is starting to hurt. She is only taking Tylenol for pain. No fever. She has had a moist cough for 2 weeks, without recent change. REVIEW OF SYSTEMS: Constitutional: No fever, no chills Eyes: No visual changes ENT: No sore throat Respiratory: no shortness of breath Cardiac: No chest pain Gastrointestinal: No nausea, no vomiting, no abdominal pain Genitourinary: No hematuria, no dysuria Musculoskeletal: No leg pain or swelling Skin: No rash Neurological: No headache, no numbness, no weakness Psychiatric: No depression Past Medical/Surgical History: TIA Carotid endarterectomy HTN DM Afib Social History: General surgeon: Dr. Fabiano Kelly Smoking Status: Former smoker Physical Exam: General Appearance: Alert, pleasant Eyes: Pupils equal and round, no conjunctival pallor or injection ENT, Mouth: Mucous membranes moist Neck: right-sided surgical incision is clean dry and intact, there is significant surrounding ecchymosis as well as swelling just beneath ear. No fluctuance. Respiratory: Lungs are clear to auscultation Cardiovascular: Regular rate and rhythm Gastrointestinal: Abdomen is soft and nontender Neurological: A&O, nonfocal, normal gait Skin: Warm and dry Extremities: Nontender, no pedal edema Psychiatric: Mood and affect normal Constitutional: Initial Vital Signs Temperature (C) 37 C 10/29/16 17:36 Heart Rate 81 10/29/16 17:36 Respiratory Rate 22 H 10/29/16 17:36 Blood Pressure 142/85 H 10/29/16 17:36 O2 Sat (%) 88 L 10/29/16 17:36 O2 Delivery Mode Nasal Cannula O2 (L/minute) 2 Allergies/Adverse Reactions: lidocaine Allergy (Severe, Verified 10/29/16 17:35) Swelling/neck,face,throat codeine [Codeine] Allergy (Intermediate, Verified 10/29/16 17:35) Other-Enter Comments promethazine HCl [From Phenergan] Allergy (Verified 10/29/16 17:35) Home Medications: Medication Instructions Recorded Carvedilol [Coreg (*)] 6.25 mg PO BIDMEAL 10/17/16 Acetaminophen [Tylenol ES 500 mg 1,000 mg PO Q6HRS PRN #0 tab 10/24/16 (*)] Aspirin EC [Aspirin EC 81 mg (*)] 81 mg PO DAILY #0 tab 10/24/16 Atorvastatin Calcium [Lipitor 20 20 mg PO DAILY #30 tab 10/24/16 mg (*)] Losartan Potassium [Cozaar 50 mg 50 mg PO DAILY #30 tab 10/24/16 (*)] Polyethylene Glycol 3350 [Miralax 17 gm PO DAILY PRN #0 pkt 10/24/16 17 gm (*)] Sennosides/Docusate Sodium 1 - 2 tab PO BID #0 tab 10/24/16 [Senokot-S] Doxycycline Hyclate 100 mg PO BID #20 tablet 10/29/16 Hydrocodone/APAP 5/325 [Willard 1 - 2 tab PO Q4H PRN #10 tab 10/29/16 5/325] Medical Decision Making - Diagnostics Imaging: CT scan of the neck read by Dr. Dick Barajas reveals an intact carotid artery and decreased swelling compared to the prior CT scan 4 days ago. No abscess. Chest x-ray independently reviewed by me reveals CHF (improved from prior CXR), atelectasis, no acute infiltrate. ED Course/Re-evaluation: This pt presents with a concern about right neck pain after recent surgery. There is no sign of infection on physical exam. Given complicated course, I will obtain a CT/CTA of the neck to evaluate for recurrent hematoma/abscess. She also has a 2 week h/o cough. CXR ordered. CT results d/w pt; fortunately, no recurrent hematoma or abscess. CXR without definite infiltrate. Given persistent cough, I will treat her for possible early pneumonia with doxycycline. On d/c, pt had low grade temp. Likely associated with cough/early pneumonia. I do not think that admission is indicated at this point. Although initial O2 sat on RA was 88%, she has been on O2 2l by [place] at home since discharge. O2 sat on 2l [place] 95%. Warning signs discussed with pt. Will return for worsening sx, any concerns. Differential Diagnosis: includes though not limited to hematoma, abscess, pneumonia, TIA, CHF. - Data Points Laboratory Results: Laboratory Results 10/29/16 18:40 10/29/16 18:40 Medications Given: Discontinued Medications Hydrocodone Bitart/Acetaminophen (Willard 5/325) 1 tab PO EDNOW ONE Stop: 10/29/16 20:59 Last Admin: 10/29/16 21:01 Dose: 1 tab Hydrocodone Bitart/Acetaminophen (Willard 5/325mg Prepack#6) 1 btl TAKEHOME EDNOW ONE Stop: 10/29/16 22:03 Last Admin: 10/29/16 22:13 Dose: 1 btl Doxycycline Hyclate (Doxycycline Hyclate) 100 mg PO EDNOW ONE PRN Reason: Protocol Stop: 10/29/16 22:11 Last Admin: 10/29/16 22:28 Dose: 100 mg Departure - Departure Disposition: Home, Routine, Self-Care Clinical Impression: Postoperative pain, Acute bronchitis Condition: Good Instructions: Hydrocodone/Acetaminophen (By mouth), Acute Bronchitis (ED), Neck Pain (ED) Additional Instructions: Take Vicodin 1 tablet every 4 hours as needed for pain. Return for worsening symptoms or any concerns. Referrals: MORENITA JOAQUIN MD [Other] - As per Instructions Fabiano Kelly MD [Medical Doctor] - As per Instructions Prescriptions: Doxycycline Hyclate 100 mg PO BID #20 tablet Hydrocodone/APAP 5/325 [Willard 5/325] 1 - 2 tab PO Q4H PRN #10 tab PRN Reason: Pain, Moderate
[2016-10-29] MEDS ORDERED: HYDROCODONE/APAP 5/325 TAB PO ONE (20:58)
[2016-10-29] MEDS ORDERED: HYDROCODONE/APAP 5/325 TAB ONE (20:59)
[2016-10-29 21:56] VITALS: BP 146/71; RESP 23; TEMP 100
[2016-10-29] MEDS ORDERED: HYDROCOD/APAP 5/325 PREPACK#6 BTL TAKEHOME ONE (22:02)
[2016-10-29 22:06] VITALS: PULSE 78; O2SAT 94
[2016-10-29] MEDS ORDERED: DOXYCYCLINE HYCLATE 100 MG CAP/TAB PO ONE (22:10)
== END 2016-10-29 22:30 | disposition home or self-care (01) ==
DX: G89.18 Other acute postprocedural pain (principal); J20.9 Acute bronchitis, unspecified; I10 Essential (primary) hypertension; E11.9 Type 2 diabetes mellitus without complications; Z79.82 Long term (current) use of aspirin; Z87.891 Personal history of nicotine dependence; Z86.73 Personal history of transient ischemic attack (TIA), and cerebral infarction without residual deficits
CPT/HCPCS: 70491; 70498; 71020; 99285; Q9967; 82947-QW

== ENCOUNTER 2016-12-03 22:39 | Emergency (ER) | payer OTHER, MEDICAID ==
[2016-12-03 22:48] VITALS: RESP 18
--- NOTE | 2016-12-03 23:23 | EDPHY ---
H & P Stated Complaint: right neck swelling on thursday, 10/20 & arotid artery surgery Time Seen by Provider: 12/03/16 23:11 HPI/ROS: CHIEF COMPLAINT: Right anterior neck swelling HISTORY OF PRESENT ILLNESS: Patient and her daughter present concerned about carotid artery bleeding. She had a carotid endarterectomy on October 20 and had to be taken back to the OR twice on the for hematoma. She was on blood thinners at that time. She states that she has been doing well since that time and they have stopped her blood thinners but today she noticed that the right side of her neck was slightly swollen. She states that it hurts to turn her head side to side. She is worried about rebleeding. She has not had a fever. She has not had any trouble swallowing or talking. She has not had any headaches or neurologic deficits. REVIEW OF SYSTEMS: Constitutional: denies: chills, fever, recent illness, recent injury EENTM: denies: blurred vision, double vision, nose congestion Respiratory: denies: cough, shortness of breath Cardiac: denies: chest pain, irregular heart rate, lightheadedness, palpitations Gastrointestinal/Abdominal: denies: abdominal pain, diarrhea, nausea, vomiting, blood streaked stools Genitourinary: denies: dysuria, frequency, hematuria, pain Musculoskeletal: denies: joint pain, muscle pain Skin: denies: lesions, rash, jaundice, bruising Neurological: denies: headache, numbness, paresthesia, tingling, dizziness, weakness Hematologic/Lymphatic: denies: blood clots, easy bleeding, easy bruising Immunologic/allergic: denies: HIV/AIDS, transplant EXAM: GENERAL: Well-appearing, obese and in no acute distress. HEAD: Atraumatic, normocephalic. EYES: Pupils equal round and reactive to light, extraocular movements intact, sclera anicteric, conjunctiva are normal. ENT: TMs normal, nares patent, oropharynx clear without exudates. Moist mucous membranes. NECK: Carotid endarterectomy scar on the right that is firm, no erythema or drainage or dehiscence, no appreciable swelling, decreased range of motion, supple without lymphadenopathy or JVD. LUNGS: Breath sounds clear to auscultation bilaterally and equal. No wheezes rales or rhonchi. HEART: Regular rate and rhythm without murmurs, rubs or gallops. ABDOMEN: Soft, nontender, normoactive bowel sounds. No guarding, no rebound. No masses appreciated. BACK: No CVA tenderness, no spinal tenderness, step-offs or deformities EXTREMITIES: Normal range of motion, no pitting or edema. No clubbing or cyanosis. NEUROLOGICAL: Cranial nerves II through XII grossly intact. Normal speech, normal gait. 5/5 strength, normal movement in all extremities, normal sensation PSYCH: Normal mood, normal affect. SKIN: Warm, dry, normal turgor, no visible rashes or lesions. Source: Patient Exam Limitations: No limitations - Personal History Current Tetanus/Diphtheria Vaccine: Yes Current Tetanus Diphtheria and Acellular Pertussis (TDAP): Yes Tetanus Vaccine Date: 2014 - Medical/Surgical History Hx Asthma: Yes Hx Chronic Respiratory Disease: Yes Hx Diabetes: Yes Hx Cardiac Disease: Yes Hx Renal Disease: No Hx Cirrhosis: No Hx Alcoholism: No Hx HIV/AIDS: No Hx Splenectomy or Spleen Trauma: No Other PMH: Diabetes, aortic valve replacement, CABG x2, cervical cancer, spinal surgery x 4, frequent UTI, suraj, appy, osteopeorosis, hysterectomy, HTN, irregular heartbeat, mini-strokes, hld - Family History Significant Family History: No pertinent family hx - Social History Smoking Status: Former smoker Alcohol Use: Sober Drug Use: None Constitutional: Initial Vital Signs Temperature (C) 36.6 C 12/03/16 22:41 Heart Rate 80 12/03/16 22:41 Respiratory Rate 18 12/03/16 22:41 Blood Pressure 143/70 H 12/03/16 22:41 O2 Sat (%) 93 12/03/16 22:41 O2 Delivery Mode Room Air Allergies/Adverse Reactions: lidocaine Allergy (Severe, Verified 10/29/16 17:35) Swelling/neck,face,throat codeine [Codeine] Allergy (Intermediate, Verified 10/29/16 17:35) Other-Enter Comments promethazine HCl [From Phenergan] Allergy (Verified 10/29/16 17:35) Home Medications: Medication Instructions Recorded Carvedilol [Coreg (*)] 6.25 mg PO BIDMEAL 10/17/16 Acetaminophen [Tylenol ES 500 mg 1,000 mg PO Q6HRS PRN #0 tab 10/24/16 (*)] Aspirin EC [Aspirin EC 81 mg (*)] 81 mg PO DAILY #0 tab 10/24/16 Atorvastatin Calcium [Lipitor 20 20 mg PO DAILY #30 tab 10/24/16 mg (*)] Losartan Potassium [Cozaar 50 mg 50 mg PO DAILY #30 tab 10/24/16 (*)] Polyethylene Glycol 3350 [Miralax 17 gm PO DAILY PRN #0 pkt 10/24/16 17 gm (*)] Sennosides/Docusate Sodium 1 - 2 tab PO BID #0 tab 10/24/16 [Senokot-S] Doxycycline Hyclate 100 mg PO BID #20 tablet 10/29/16 Hydrocodone/APAP 5/325 [[place] 1 - 2 tab PO Q4H PRN #10 tab 10/29/16 5/325] Medical Decision Making - Diagnostics EKG Interpretation: An EKG obtained and was read and documented in trace view. Please see trace view for full reading and report. , sinus rhythm, no acute ischemic changes Imaging: Discussed imaging studies w/ yard caller Radiologist ED Course/Re-evaluation: Patient does not have any abnormality seen on her neck on CT scan. I do not appreciate any clinically. She will follow up with Dr. Kelly tomorrow. She has surgery planned in 5 days for the other side. Patient and daughter reassured and declines further workup or testing at this time. Differential Diagnosis: Partial list of the Differential diagnosis considered include but were not limited to; anxiety, infection, hematoma, aneurysm and although unlikely based on the history and physical exam, I also considered allergic reaction, abscess. I discussed these differential diagnoses and the plan with the patient as well as the usual and expected course. The patient understands that the diagnosis is provisional and that in medicine we are not always correct and that further workup is often warranted. Usual and customary warnings were given. All of the patient's questions were answered. The patient was instructed to return to the emergency department should the symptoms at all worsen or return, otherwise to followup with the physician as we discussed. - Data Points Laboratory Results: Laboratory Results 12/03/16 23:30 12/03/16 23:30 12/03/16 12/03/16 12/03/16 23:30 23:30 23:30 WBC 8.01 10^3/uL 10^3/uL (3.80-9.50) RBC 4.44 10^6/uL 10^6/uL (4.18-5.33) Hgb 13.8 g/dL g/dL (12.6-16.3) Hct 42.3 % % (38.0-47.0) MCV 95.3 fL fL (81.5-99.8) MCH 31.1 pg pg (27.9-34.1) MCHC 32.6 g/dL g/dL (32.4-36.7) RDW 14.2 % % (11.5-15.2) Plt Count 257 10^3/uL 10^3/uL (150-400) MPV 9.3 fL fL (8.7-11.7) Neut % (Auto) 53.7 % % (39.3-74.2) Lymph % (Auto) 34.2 % % (15.0-45.0) [place] % (Auto) 9.0 % % (4.5-13.0) Eos % (Auto) 2.5 % % (0.6-7.6) Baso % (Auto) 0.4 % % (0.3-1.7) Nucleat RBC Rel Count 0.0 % % (0.0-0.2) Absolute Neuts (auto) 4.30 10^3/uL 10^3/uL (1.70-6.50) Absolute Lymphs (auto) 2.74 10^3/uL 10^3/uL (1.00-3.00) Absolute Monos (auto) 0.72 10^3/uL 10^3/uL (0.30-0.80) Absolute Eos (auto) 0.20 10^3/uL 10^3/uL (0.03-0.40) Absolute Basos (auto) 0.03 10^3/uL 10^3/uL (0.02-0.10) Absolute Nucleated RBC 0.00 10^3/uL 10^3/uL (0-0.01) Immature Gran % 0.2 % % (0.0-1.1) Immature Gran # 0.02 10^3/uL 10^3/uL (0.00-0.10) PT 13.0 SEC SEC (12.0-15.0) INR 0.99 (0.83-1.16) APTT 25.1 SEC SEC (23.0-38.0) Sodium 139 mEq/L mEq/L (134-144) Potassium 4.1 mEq/L mEq/L (3.5-5.2) Chloride 103 mEq/L mEq/L (97-110) Carbon Dioxide 26 mEq/l mEq/l (22-31) Anion Gap 10 mEq/L mEq/L (8-16) BUN 26 mg/dL H mg/dL (7-23) Creatinine 1.1 mg/dL H mg/dL (0.6-1.0) Estimated GFR 48 Glucose 130 mg/dL H mg/dL (70-100) Calcium 9.2 mg/dL mg/dL (8.5-10.4) Departure - Departure Disposition: Home, Routine, Self-Care Clinical Impression: Swelling Condition: Fair Instructions: Edema (ED) Referrals: MORENITA JOAQUIN MD [Other] - As per Instructions Fabiano Kelly MD [Medical Doctor] - 1-2 days without fail
[2016-12-03 23:45] LABS: % IMMATURE GRANULYOCYTES 0.2 % (0.0-1.1); ABSOLUTE IMMATURE GRANULOCYTES 0.02 10^3/uL (0.00-0.10); ADD DIFF? NO; ADD MORPH? NO; ADD SCAN? NO; ATYPICAL LYMPHOCYTE FLAG 20 (0-99); FRAGMENT RBC FLAG 0 (0-99); HEMATOCRIT 42.3 % (38.0-47.0); HEMOGLOBIN 13.8 g/dL (12.6-16.3); LEFT SHIFT FLG 0 (0-99); LIPEMIA HEMOLYSIS FLAG 80 (0-99); MEAN CELL HEMOGLOBIN 31.1 pg (27.9-34.1); MEAN CELL HEMOGLOBIN CONCENTR. 32.6 g/dL (32.4-36.7); MEAN CELL VOLUME 95.3 fL (81.5-99.8); MEAN PLATELET VOLUME 9.3 fL (8.7-11.7); PLATELET CLUMPS FLAG 0 (0-99); PLATELET COUNT 257 10^3/uL (150-400); RED BLOOD CELL COUNT 4.44 10^6/uL (4.18-5.33); RED CELL DISTRIBUTION WIDTH 14.2 % (11.5-15.2)
--- NOTE | 2016-12-03 23:46 | CPEKG ---
Heart Rate: 74 RR Interval: 811 P-R Interval: 160 QRSD Interval: 98 QT Interval: 428 QTC Interval: 475 P [place]: 66 QRS [place]: 50 T Wave [place]: -13 EKG Severity - ABNORMAL ECG - EKG Impression: SINUS RHYTHM EKG Impression: INFERIOR INFARCT, AGE INDETERMINATE EKG Impression: UNCHANGED FROM PREVIOUS Electronically Signed By: Hunter Sutton 04-Dec-2016 00:50:29
[2016-12-03 23:49] LABS: INR 0.99 (0.83-1.16)
[2016-12-03 23:50] LABS: APTT 25.1 SEC (23.0-38.0)
[2016-12-04 00:01] LABS: ANION GAP 10 mEq/L (8-16); CALCIUM 9.2 mg/dL (8.5-10.4); CARBON DIOXIDE 26 mEq/l (22-31); CHLORIDE 103 mEq/L (97-110); CREATININE 1.1 mg/dL (0.6-1.0); GLOMERULAR FILTRATION RATE 48; GLUCOSE 130 mg/dL (70-100); POTASSIUM 4.1 mEq/L (3.5-5.2); SODIUM 139 mEq/L (134-144)
[2016-12-04] MEDS ORDERED: IOPAMIDOL (ISOVUE 370) 100 ML BTL IV ONE (00:07)
[2016-12-04 01:58] VITALS: BP 164/65; PULSE 83; TEMP 98.1; O2SAT 92
[2016-12-04] MEDS ORDERED: LORazepam 2 MG/ML INJ IVP ONE (02:16)
== END 2016-12-04 01:57 | disposition home or self-care (01) ==
DX: R22.1 Localized swelling, mass and lump, neck (principal); J45.909 Unspecified asthma, uncomplicated; E11.9 Type 2 diabetes mellitus without complications; I10 Essential (primary) hypertension; Z79.82 Long term (current) use of aspirin; Z85.41 Personal history of malignant neoplasm of cervix uteri; Z87.891 Personal history of nicotine dependence; Z95.1 Presence of aortocoronary bypass graft
CPT/HCPCS: 70498; 93005; 99285; Q9967

== ENCOUNTER 2016-12-08 09:15 | Inpatient (IN) | payer OTHER, MEDICAID ==
--- NOTE | 2016-12-04 10:16 | GHP ---
[f rep st] PREOP HISTORY AND PHYSICAL DATE OF ADMISSION: 12/09/2016 Upcoming surgery date of admission of 12/09/2016. HISTORY OF PRESENT ILLNESS: Patient is a very pleasant 81-year-old female, well known to our office , who is coming to [facility] for a left carotid endarterectomy. She underwent right carotid endarterectomy in early October 2016. It is important to note after that surgery, she had a c omplication of bleeding/hematoma, and on October 25, 2016, she underwent drainage of neck hematoma and carotid exploration with Dr. Kelly. It is also important to note she had paroxysmal atrial fibrill ation during that hospital course stay and was seen by Cardiology. She has a history in the past of paroxysmal atrial fibrillation when she underwent open-heart surgery which consisted of bioprosthet ic aortic valve replacement, 2-vessel CABG, intraoperative maze procedure and resection of left atri al appendage in 2010. She has been seen by Cardiology since her discharge. She does have a [employer] LINQ recorder that has been implanted. There is a loop recorder. Also significant to note she d oes have a history of CVA. PAST MEDICAL HISTORY: Acute embolic CVA in 2009, history of severe right carotid stenosis with hist ory of recent endarterectomy, type 2 diabetes, diet controlled. PAST SURGICAL HISTORY: Recent right carotid endarterectomy, L1-L3 kyphoplasty, aortic valve replace ment, cholecystectomy. SOCIAL HISTORY: Former smoker, quit in 1996, no alcohol use, patient lives in independent living [facility], currently with her sister in law, daughter lives nearby. ALLERGIES: Lidocaine, codeine, promethazine. MEDICATIONS: Coreg, Tylenol, aspirin, Lipitor, losartan, senna. REVIEW OF SYSTEMS: She had a negative 10-point review of systems. PHYSICAL EXAM: GENERAL: Patient is a very pleasant, elderly female, A and O x3. HEAD AND NECK: W ell-healing right-sided neck incision, no bruit on the left. CHEST: CTA bilaterally. HEART: Regu lar rhythm and rate. ABDOMEN: Soft, nontender. EXTREMITIES: No lower extremity edema. IMPRESSION: A 81-year-old female with left carotid stenosis, recent right carotid endarterectomy. RECOMMENDATION: Risks of surgery including stroke were emphasized to the patient. Other risks disc ussed include infection, bleeding, especially given her hematoma after her last surgery, nerve injur y resulting in permanent numbness over her neck and face, were all discussed with the patient in det ail. Patient elects to proceed with scheduling surgery for December 09, 2016. /[id number]/MODL
[2016-12-09] MEDS ORDERED: THROMBIN (BOVINE) 20,000 UNIT SPRAY TP ONE (07:24)
[2016-12-09] MEDS ORDERED: BUPIVACAINE 0.5% 30 ML SDV ONE (07:25)
[2016-12-09] MEDS ORDERED: PROPOFOL 200 MG/20 ML VIAL ONE ×2 (09:01→10:20)
[2016-12-09] MEDS ORDERED: fentaNYL 100 MCG/2 ML INJ ONE ×5 (09:01→12:00)
[2016-12-09] MEDS ORDERED: ROCURONIUM 50 MG/5 ML VIAL ONE (09:01)
[2016-12-09] MEDS ORDERED: LIDOCAINE 2% 5 ML SDV ONE (09:07)
[2016-12-09] MEDS ORDERED: ceFAZolin 2 GM/DEXTROSE 100 ML IV ONE (09:30)
[2016-12-09] MEDS ORDERED: PROPOFOL/EMULSION 500 MG/50 ML BOTTLE IV ONE (10:50)
[2016-12-09] MEDS ORDERED: PROTAMINE SULFATE 50 MG/5 ML VIAL IVP ONE (11:13)
[2016-12-09] MEDS ORDERED: HYDROmorphONE/DILAUDID 1 MG/ML SYR IVP PRN (11:31)
[2016-12-09] MEDS ORDERED: ONDANSETRON 4 MG/2 ML VIAL IVP PRN (11:31)
[2016-12-09] MEDS ORDERED: ACETAMINOPHEN 325 MG TAB PO PRN (11:34)
--- NOTE | 2016-12-09 11:38 | POSTOPPROG ---
Post Op Note Date of Operation: 12/09/16 Surgeon: Fabiano Kelly Plaster Die Maker: 1. Ned Mcintosh MD, 2. Christy Dan PA-C Anesthesia: GET(General Endotracheal) Pre-op Diagnosis: critical R carotid stenosis Post-op Diagnosis: same Procedure: R CEA c EEG monitoring Findings: tight focal plaque, no eeg changes, good back flow Inf/Abcess present in the surg proc area at time of surgery?: No EBL: Minimal Complications: none Specimen(s): plaque to pathology
[2016-12-09] MEDS ORDERED: NS W/ 20 KCl/L 1,000 ML IV SCH (11:45)
--- NOTE | 2016-12-09 13:41 | GOP ---
[f rep st] OPERATIVE REPORT DATE OF OPERATION: 12/09/2016 SURGEON: Fabiano Kelly MD BUTTONHOLER: Dr. Mcintosh and Christy Dan. ANESTHESIOLOGIST: Dr. Gutiérrez. PREOPERATIVE DIAGNOSIS: Critical left carotid stenosis. POSTOPERATIVE DIAGNOSIS: Critical left carotid stenosis. PROCEDURE PERFORMED: Left carotid endarterectomy with EEG monitoring. FINDINGS: The patient was found to have a well-localized 0.5 cm in length critical carotid stenosis at the origin of the internal carotid artery creating an 80% stenosis. There were no EEG changes o r problems during the procedure, and she had excellent backflow from the internal carotid artery. DESCRIPTION OF PROCEDURE: Patient was taken to the operating room where she received satisfactory g eneral endotracheal anesthesia by Dr. Gutiérrez. She was systemically heparinized prior to the induction of anesthesia, prepped and draped in usual sterile fashion. An incision was made along the anterio r border of the sternocleidomastoid muscle and carried down through the platysma and subcutaneous ti ssue and through the superficial fascia. The facial vein was identified, ultimately ligated and div ided. The carotid arterial tree was then exposed. The common carotid, external carotid, internal c arotid, and multiple branches were encircled with vessel loops for control. After adequate exposure was obtained, additional heparin was given, and after adequate circulation time, the vessels were c ross clamped. The carotid was opened in the common carotid artery and extending up through the calc ified tight stenosis. Above there, the carotid appeared to be normal with an adequate lumen as well . There was excellent backflow from the internal carotid artery. An expeditious endarterectomy was then done removing the localized plaque with a good feathered end obtained distally. All vessels w ere flushed, and the arteriotomy was closed with a running 6-0 Prolene suture. Flow was first estab lished through the external carotid system and then through the internal carotid. There were no EEG changes or problems. She tolerated the procedure well. She awoke moving all extremities and respo nding to commands, and she was taken to the recovery room in satisfactory condition after wound clos ure. Heparin was reversed. The wound was sprayed with some topical thrombin, closed in layers usin g 3-0 Vicryl for the cervical fascia, running 3-0 Vicryl for the platysma and subcu, and running 4-0 Monocryl subcuticular stitch for the skin. The superficial layers were infiltrated with 0.5% Debra ine. There were no complications. She tolerated the procedure well and was taken to the recovery r o in good condition. No report of skaggs sign. Copy requested to: Dr. Julia Tan, [place] /[id number]/MODL
[2016-12-09] MEDS ORDERED: ENALAPRILAT DIHYDRATE 1.25 MG/ML VIAL IVP PRN (16:25)
[2016-12-09] MEDS: OXYCODONE/APAP 5/325 TAB PO PRN (16:35)
[2016-12-09] MEDS: CARVEDILOL 6.25 MG TAB PO SCH (18:29)
--- NOTE | 2016-12-09 21:30 | SOAPPROG ---
SOAP Progress Note Assessment/Plan: Assessment: postop doing well/ wound ok/ afebrile/ wound ok Plan:stable 12/09/16 21:29 Objective: Vital Signs Temp Pulse Resp BP Pulse Ox 36.5 C 84 17 130/70 H 94 12/09/16 16:00 12/09/16 20:00 12/09/16 20:00 12/09/16 20:00 12/09/16 20:00 12/08/16 12/09/16 12/10/16 05:59 05:59 05:59 Intake Total 2333 Output Total 985 Balance 1348 ICD10 Worksheet Patient Problems: Problems Problem Status Onset CAD - Coronary arteriosclerosis Active Diabetes mellitus type 2 Active Dyslipidemia Active Essential hypertension Active Low back pain Active Replacement of aortic valve Active Chronic Disease Mgmt/Transitional Care Acute Hematoma of neck Acute Hypertensive urgency Acute Transient cerebral ischemia Acute
[2016-12-10] MEDS: CETIRIZINE 10 MG TAB PO SCH (09:33)
[2016-12-10] MEDS: CARVEDILOL 6.25 MG TAB PO SCH ×2 (09:33→18:23)
[2016-12-10] MEDS: LOSARTAN POTASSIUM 50 MG TAB PO SCH (09:33)
[2016-12-10] MEDS: ATORVASTATIN CALCIUM 20 MG TAB PO SCH (09:33)
--- NOTE | 2016-12-10 09:40 | SOAPPROG ---
SOAP Progress Note Assessment/Plan: Assessment: 81yo s/p left CEA, recent right CEA. Tolerating clear diet, wants to stay on clears, minimal pain, feel much better than after last surgery, denies any visual changes, no numbness/tingling of extremities, no weakness of extremities. PE awake alert, accompanied by family member bandage dry, soft to palpation Chest CTA B/L normal biceps/triceps strength to resistance 5/5 B/L, Plan: advance diet per patient, wants to stay on clears thru lunch ok to medsurg floor likely home if doing well ok to remove silva 12/10/16 09:37 Objective: Vital Signs Temp Pulse Resp BP Pulse Ox 36.5 C 80 17 137/60 H 96 12/09/16 16:00 12/10/16 09:33 12/10/16 06:00 12/10/16 09:33 12/10/16 06:00 12/09/16 12/10/16 12/11/16 05:59 05:59 05:59 Intake Total 4038 Output Total 1984 Balance 3 ICD10 Worksheet Patient Problems: Problems Problem Status Onset CAD - Coronary arteriosclerosis Active Diabetes mellitus type 2 Active Dyslipidemia Active Essential hypertension Active Low back pain Active Replacement of aortic valve Active Chronic Disease Mgmt/Transitional Care Acute Hematoma of neck Acute Hypertensive urgency Acute Transient cerebral ischemia Acute
[2016-12-11 08:08] VITALS: BP 140/90; RESP 20; TEMP 97.9; O2SAT 90
[2016-12-11] MEDS: LOSARTAN POTASSIUM 50 MG TAB PO SCH (08:43)
[2016-12-11] MEDS: ATORVASTATIN CALCIUM 20 MG TAB PO SCH (08:44)
[2016-12-11] MEDS: CETIRIZINE 10 MG TAB PO SCH (08:44)
[2016-12-11] MEDS: CARVEDILOL 6.25 MG TAB PO SCH (08:44)
[2016-12-11 08:45] VITALS: PULSE 78
[2016-12-11] MEDS ORDERED: ASPIRIN EC 81 MG TAB PO SCH (09:00)
[2016-12-11] MEDS: OXYCODONE/APAP 5/325 TAB PO PRN (10:07)
--- NOTE | 2016-12-11 11:49 | PDIAF ---
- Diagnosis Diagnosis: s/p carotid surgery Code Status: Full Code - Medication Management Discharge Medications: Medications to Continue on Transfer Carvedilol [Coreg (*)] 6.25 mg PO BIDMEAL 10/17/16 [Last Taken 10/24/16] Aspirin EC [Aspirin EC 81 mg (*)] 81 mg PO DAILY #0 tab 10/24/16 [Last Taken 06/02] Atorvastatin Calcium [Lipitor 20 mg (*)] 20 mg PO DAILY #30 tab 10/24/16 [Last Taken 10/24/16] Losartan Potassium [Cozaar 50 mg (*)] 50 mg PO DAILY #30 tab 10/24/16 [Last Taken 10/24/16] Herbals/Supplements -Info Only 1 ea PO DAILY 12/05/16 [Last Taken Unknown] Acetaminophen [Tylenol 325mg (*)] 650 mg PO Q6 PRN #0 tab 12/11/16 [Last Taken Unknown] Loratadine [Claritin 10 mg] 10 mg PO DAILY #0 tablet 12/11/16 [Last Taken Unknown] oxyCODONE/APAP 5/325 [Percocet 5/325 (*)] 1 - 2 tab PO Q4HRS PRN #0 tab [Last Taken Unknown] Discharge Medications: Refer to the Discharge Home Medication list for PRN reason. - Orders Services needed: Home Care, Registered Nurse, Physical Therapy, Occupational Therapy Home Care Face to Face: I certify that this patient was under my care and that I had the required [id number] encounter meeting the encounter requirements on the discharge day. My findings support the fact that the patient is homebound as defined in CMS Chapter 7 Medicare Benefits Manual 30.1.1, The condition of the patient is such that there exists a normal inability to leave home and consequently, leaving home would require a considerable and taxing effort. Diet Recommendation: no restrictions on diet Diet Texture: Regular Texture Diet Wound Care Instructions: ok to shower normally, just removed outer bandage, only cover if wound leaking, ok for steri strips to get wet. - Follow Up Care Current Providers and Referrals: NONE *PRIMARY CARE P,. [Primary Care Provider] -
== END 2016-12-11 11:54 | disposition home health service (06) | DRG 39 ==
LOC: F3E 18:39 → F2N 12-09 12:32
PROVIDERS: ADMIT Surgery; ATTEND Surgery
PROC: 03CL0ZZ Extirpation of Matter from Left Internal Carotid Artery, Open Approach (ICD-10-PCS; principal; 2016-12-09 09:15)
DX: I65.22 Occlusion and stenosis of left carotid artery (principal); I48.0 Paroxysmal atrial fibrillation; I25.10 Atherosclerotic heart disease of native coronary artery without angina pectoris; E11.9 Type 2 diabetes mellitus without complications; Z95.3 Presence of xenogenic heart valve; Z95.1 Presence of aortocoronary bypass graft; Z86.73 Personal history of transient ischemic attack (TIA), and cerebral infarction without residual deficits
CPT/HCPCS: J0690; J1644; J2704; J2720; J3010

== ENCOUNTER 2017-03-25 11:06 | Emergency (ER) | payer OTHER, MEDICAID ==
[2017-03-25] MEDS ORDERED: ONDANSETRON 4 MG/2 ML VIAL IVP ONE (11:29)
--- NOTE | 2017-03-25 11:32 | CPEKG ---
Heart Rate: 70 RR Interval: 857 P-R Interval: 192 QRSD Interval: 100 QT Interval: 432 QTC Interval: 467 P [place]: 63 QRS [place]: 43 T Wave [place]: -15 EKG Severity - ABNORMAL ECG - EKG Impression: SINUS RHYTHM EKG Impression: INFERIOR INFARCT, AGE INDETERMINATE Electronically Signed By: Sally Ma 25-Mar-2017 16:54:17
[2017-03-25 12:34] LABS: % IMMATURE GRANULYOCYTES 0.3 % (0.0-1.1); ABSOLUTE IMMATURE GRANULOCYTES 0.02 10^3/uL (0.00-0.10); ADD DIFF? NO; ADD MORPH? NO; ADD SCAN? NO; ATYPICAL LYMPHOCYTE FLAG 10 (0-99); FRAGMENT RBC FLAG 0 (0-99); HEMATOCRIT 40.7 % (38.0-47.0); HEMOGLOBIN 12.9 g/dL (12.6-16.3); LEFT SHIFT FLG 0 (0-99); LIPEMIA HEMOLYSIS FLAG 80 (0-99); MEAN CELL HEMOGLOBIN 29.4 pg (27.9-34.1); MEAN CELL HEMOGLOBIN CONCENTR. 31.7 g/dL (32.4-36.7); MEAN CELL VOLUME 92.7 fL (81.5-99.8); MEAN PLATELET VOLUME 9.5 fL (8.7-11.7); PLATELET CLUMPS FLAG 0 (0-99); PLATELET COUNT 255 10^3/uL (150-400); RED BLOOD CELL COUNT 4.39 10^6/uL (4.18-5.33); RED CELL DISTRIBUTION WIDTH 14.3 % (11.5-15.2)
[2017-03-25 12:46] LABS: ANION GAP 12 mEq/L (8-16); CALCIUM 9.1 mg/dL (8.5-10.4); CARBON DIOXIDE 25 mEq/l (22-31); CHLORIDE 102 mEq/L (97-110); CREATININE 0.9 mg/dL (0.6-1.0); GLOMERULAR FILTRATION RATE > 60; GLUCOSE 181 mg/dL (70-100); POTASSIUM 4.6 mEq/L (3.5-5.2); SODIUM 139 mEq/L (134-144)
--- NOTE | 2017-03-25 13:19 | EDPHY ---
H & P Stated Complaint: felt weak yesterday/this morning had episode of drooling and nausea/no othe - Personal History Current Tetanus/Diphtheria Vaccine: Yes Tetanus Vaccine Date: 2014 - Medical/Surgical History Hx Asthma: Yes Hx Chronic Respiratory Disease: Yes Hx Diabetes: Yes Hx Cardiac Disease: Yes Hx Renal Disease: No Hx Cirrhosis: No Hx Alcoholism: No Hx HIV/AIDS: No Hx Splenectomy or Spleen Trauma: No Other PMH: Aortic valve replacement, CABG x2, cervical cancer, spinal surgery x 4, frequent UTI, suraj, appy, tonsilectomy, osteoporosis, hysterectomy, HTN, irregular heartbeat (loop recorder), mini-strokes, hld, funcitonal incontinece - Social History Smoking Status: Former smoker Time Seen by Provider: 03/25/17 12:33 HPI/ROS: CHIEF COMPLAINT: Episode of drooling HISTORY OF PRESENT ILLNESS: This is a 81-year-old female with history of CVA in 2009, status post bilateral carotid endarterectomies, and type 2 diabetes who presents after an episode of drooling that occurred this morning. She states that she was not feeling well last night but is unable to be more specific than that. She went to bed around 11:30 p.m.. When she awoke this morning she continued feeling poorly and around 8:30 in the morning she got back in bed. After lying down she had an episode of spontaneous drooling. She has subsequently been able to swallow without difficulty. She denies headache, numbness, weakness, change in vision, confusion, difficulty with speech. She reports some nausea but no vomiting. She tells me that she has had drooling in the past with "mini strokes". Her TIAs manifested as drooling and garbled speech. In October of this year she presented with stroke symptoms and was discovered to have bilateral carotid artery stenosis. On October 18 she underwent right carotid endarterectomy and in November she underwent left carotid endarterectomy. She was placed on systemic anticoagulation and developed postoperative neck hematoma requiring readmission. Since that time she has been on 1 baby aspirin daily. REVIEW OF SYSTEMS: A ten point review of systems was performed and is negative with the exception of the items mentioned in the HPI. Past medical history: 1. Embolic CVA in 2009 2. Bilateral carotid stenosis status post carotid endarterectomies 3. Type 2 diabetes 4. Hypertension 5. Atrial fibrillation status post Maze 6. Aortic valve replacement, bioprosthetic 8. Mitral valve repair Past surgical history: 1. Bilateral carotid endarterectomies in 2017 2. Cholecystectomy 3. L1-2 L3 kyphoplasty 4. Aortic valve replacement 5. Mitral valve repair Social history: She lives by herself in an apartment. Her daughter lives 1 mi away. She does not use tobacco or alcohol. General Appearance: Alert. Vital signs reviewed. Blood pressure 141/86 at triage. Eyes: Pupils equal and round, no conjunctival injection, no discharge. Anicteric. ENT, Mouth: Mucous membranes are moist, no oropharyngeal erythema or edema. Neck: No lymphadenopathy, supple. Trachea midline. Surgical incisions healing well. No edema. Respiratory: Lungs are clear to auscultation; no wheezes, rales, or rhonchi. Cardiovascular: Regular rate and rhythm; murmur present over the aorta. Gastrointestinal: Abdomen is soft and nontender, no masses or organomegaly, bowel sounds normal. Skin: Warm and dry, no rashes on exposed skin, normal color. Back: Nontender to palpation over the thoracolumbar spine. No CVAT. Extremities: Left lower extremity edema, no calf tenderness. Neurological: Alert and oriented. Moving all four extremities easily and equally. Cranial nerves II through XII are examined and are intact with the exception of decreased hearing to finger rub (visual acuity not tested). Sensation intact to light touch over all 4 extremities. 5/5 lean consultant bilaterally. No upper extremity drift. No lower extremity drift. She ambulates easily with a walker. No focal neurologic signs. Psychiatric: Normal affect. (Sally Ma) Constitutional: Initial Vital Signs Temperature (C) 36.8 C 03/25/17 11:08 Heart Rate 74 03/25/17 11:08 Respiratory Rate 18 03/25/17 11:08 Blood Pressure 141/86 H 03/25/17 11:08 O2 Sat (%) 20 L 03/25/17 11:08 O2 Delivery Mode Room Air Allergies/Adverse Reactions: lidocaine Allergy (Severe, Verified 03/25/17 11:07) Swelling/neck,face,throat codeine [Codeine] Allergy (Intermediate, Verified 03/25/17 11:07) Other-Enter Comments promethazine HCl [From Phenergan] Allergy (Verified 03/25/17 11:07) Home Medications: Medication Instructions Recorded Carvedilol [Coreg (*)] 6.25 mg PO BIDMEAL 10/17/16 Aspirin EC [Aspirin EC 81 mg (*)] 81 mg PO DAILY #0 tab 10/24/16 Atorvastatin Calcium [Lipitor 20 20 mg PO DAILY #30 tab 10/24/16 mg (*)] Losartan Potassium [Cozaar 50 mg 50 mg PO DAILY #30 tab 10/24/16 (*)] Herbals/Supplements -Info Only 1 ea PO DAILY 12/05/16 Acetaminophen [Tylenol 325mg (*)] 650 mg PO Q6 PRN #0 tab 12/11/16 Loratadine [Claritin 10 mg] 10 mg PO DAILY #0 tablet 12/11/16 oxyCODONE/APAP 5/325 [Percocet 1 - 2 tab PO Q4HRS PRN #0 tab 12/11/16 5/325 (*)] Cephalexin [Keflex] 500 mg PO BID #9 cap 03/25/17 Clopidogrel Bisulfate [Clopidogrel] 75 mg PO DAILY #30 tablet 03/25/17 Medical Decision Making ED Course/Re-evaluation: [employer] rep comes and interrogated the patient's pacemaker. There has been no episodes of atrial fibrillation in the past 3 weeks. On February 15 the patient had a 3 second pause but otherwise there have been no a arrhythmia is Re-evaluation 6:45 p.m.--patient is stable and without symptoms. The patient and I and her daughter's discussed laboratory evaluation, pacemaker interrogation, treatment plan including criteria for return. She would like to go home. She expresses understanding and agreement (Jovani Avilez) 81-year-old female with history of CVA is currently taking only 1 baby aspirin daily. Prior CVA/TIA reportedly manifested as drooling and garbled speech. She has had no speech difficulty today but had a brief self-limited episode of drooling. Both the patient and family are concerned that this might have been a TIA. At the time of my exam there are no focal neurologic findings. CT scan of the brain is without acute findings. EKG does not show cardiac arrhythmia. She has not had any signs of arrhythmia on the icu manager during her stay in the emergency department. She has a mobiTerisQ recorder. I spoke with Dr. Robert Miguel. He saw her in the office in mid February. At that time her LINQ recorder, placed in October, was without any evidence of atrial fibrillation. He recommends consulting [employer] to query the loop recorder today. She has undergone bilateral carotid endarterectomies, making carotid artery stenosis/plaque unlikely. I spoke with her surgeon, Dr. Kelly, who states that at this point in time it is fine for her to resume Plavix along with her aspirin. I also spoke with Dr. Steward of Neurology. He recommends adding Plavix to her aspirin if there is no evidence of atrial fibrillation on her loop recorder. She was serially examined during her stay in the emergency department. Her neurologic exam remained stable/normal. I have discussed all of the above with the patient and her family. They are agreeable to this plan. Urinalysis suggests urinary tract infection, which she has had before. That might explain why she has been feeling poorly for the last 24-36 hours. She is given a dose of Keflex here and a prescription. Urine culture sent. (Sally Ma) Differential Diagnosis: I considered a differential diagnosis that includes but is not limited to embolic or hemorrhagic stroke, TIA, seizure, atrial fibrillation, and infection. (Sally Ma) - Data Points Laboratory Results: Laboratory Results 03/25/17 11:25 03/25/17 11:25 Medications Given: Discontinued Medications Cephalexin HCl (Keflex) 500 mg PO EDNOW ONE PRN Reason: Protocol Stop: 03/25/17 16:43 Last Admin: 03/25/17 17:13 Dose: 500 mg Ondansetron HCl (Zofran) 4 mg IVP EDNOW ONE Stop: 03/25/17 11:30 Last Admin: 03/25/17 11:32 Dose: 4 mg Departure - Departure Disposition: Home, Routine, Self-Care Clinical Impression: Transient cerebral ischemia Qualifiers: Transient cerebral ischemia type: other Qualified Code(s): G45.8 - Other transient cerebral ischemic attacks and related syndromes Urinary tract infection Qualifiers: Urinary tract infection type: acute cystitis Hematuria presence: without hematuria Qualified Code(s): N30.00 - Acute cystitis without hematuria Condition: Good Instructions: Transient Ischemic Attack (ED), Urinary Tract Infection in Women (ED) Additional Instructions: I do not know whether today's drooling episode was a TIA or not. The important thing is to manage all of the problems that can result in a TIA. We have not found any evidence of atrial fibrillation or other cardiac arrhythmia. The CT scan of your brain is unchanged today--it does not show a new stroke. As we discussed, a TIA will not show up on the CT scan of your brain. Your carotid arteries have been operated on and should not be a problem in terms of stroke. It is recommended by your internal medicine nurse, your surgeon, and Neurology that you continue to take an aspirin and that you also take Plavix daily. I am writing a prescription for Plavix. Please follow up with your new primary care physician, Dr. Cline. You should also keep any appointments that you have with your internal medicine nurse and your surgeon. Return if you have difficulty speaking, persistent drooling or trouble swallowing, new numbness or tingling, new weakness, any new or concerning symptoms. Take the antibiotic, Keflex, twice Daily until all the pills are gone. This is for treatment of a urinary tract infection. Referrals: Fabiano Kelly MD [Medical Doctor] - As per Instructions Robert Miguel MD [Medical Doctor] - As per Instructions Prescriptions: Cephalexin [Keflex] 500 mg PO BID #9 cap Clopidogrel Bisulfate [Clopidogrel] 75 mg PO DAILY #30 tablet Report Scribed for: Sally Ma Report Scribed by: Lanie Marmolejo Date of Report: 03/25/17 Physician Review and Approval Statement: 03/25/17 16:19 Portions of this note were transcribed by the medical records administrator. I, Dr. Sally Ma, personally performed the history, physical exam, and medical decision- making; and confirmed the accuracy of the information in the transcribed note. ( Sally Ma)
[2017-03-25 14:01] LABS: COLOR YELLOW; LEUKOCYTE ESTERASE,URINE TRACE (NEGATIVE); NITRITE,URINE NEGATIVE (NEGATIVE)
[2017-03-25 14:05] LABS: BACTERIA 1+ /hpf (NONE SEEN); MUCUS TRACE /lpf (NONE-1+)
[2017-03-25] MEDS ORDERED: CEPHALEXIN 500 MG CAP PO ONE (16:42)
[2017-03-25 19:02] VITALS: BP 130/67; PULSE 63; RESP 18; TEMP 97.5; O2SAT 99
== END 2017-03-25 19:02 | disposition home or self-care (01) ==
DX: G45.8 Other transient cerebral ischemic attacks and related syndromes (principal); N30.00 Acute cystitis without hematuria; I10 Essential (primary) hypertension; J45.909 Unspecified asthma, uncomplicated; E11.9 Type 2 diabetes mellitus without complications; Z79.82 Long term (current) use of aspirin; Z85.41 Personal history of malignant neoplasm of cervix uteri; Z95.1 Presence of aortocoronary bypass graft; Z87.891 Personal history of nicotine dependence; Z86.73 Personal history of transient ischemic attack (TIA), and cerebral infarction without residual deficits
CPT/HCPCS: 70450; 93005; 96374; 99285; J2405

== ENCOUNTER 2017-05-05 13:12 | Inpatient (IN) | payer OTHER, MEDICAID ==
--- NOTE | 2017-05-05 13:16 | EDPHY ---
H & P Source: Patient Exam Limitations: No limitations - Personal History Tetanus Vaccine Date: 2014 - Medical/Surgical History Hx Asthma: Yes Hx Chronic Respiratory Disease: Yes Hx Diabetes: Yes Hx Cardiac Disease: Yes Hx Renal Disease: No Hx Cirrhosis: No Hx Alcoholism: No Hx HIV/AIDS: No Hx Splenectomy or Spleen Trauma: No Other PMH: Aortic valve replacement, CABG x2, cervical cancer, spinal surgery x 4, frequent UTI, suraj, appy, tonsilectomy, osteoporosis, hysterectomy, HTN, irregular heartbeat (loop recorder), mini-strokes, hld, funcitonal incontinece - Social History Smoking Status: Former smoker Time Seen by Provider: 05/05/17 13:15 HPI/ROS: CHIEF COMPLAINT: Fatigue, intermittent unsteadiness, poor appetite HISTORY OF PRESENT ILLNESS: The patient presents to the ED with several days of fatigue, intermittent unsteadiness, poor appetite and some intermittent difficulties with speech. The patient has a history of TIAs, atrial fibrillation and history of carotid endarterectomy. The patient was seen in emergency department proximally once ago with symptoms of weakness and reported drooling. A point in time she was treated for a possible urinary tract infection which appears to has been a contaminant. The patient currently denies acute headache, she currently denies acute focal numbness, weakness or complaints of acute pain. The patient does have a history of a loop recorder. She denies current anticoagulation or Plavix use. The patient's daughter reports over the past several days she has been speaking with her mother on the phone and she has had several episodes where she is completely aphasic for 2-3 minutes. The patient is currently on a baby aspirin. REVIEW OF SYSTEMS: A comprehensive 10 point review of systems is otherwise negative aside from elements mentioned in the history of present illness. (Lonnie Mathew) - Physical Exam Exam: General Appearance: Alert, no distress Eyes: Pupils equal and round no pallor or injection ENT, Mouth: Mucous membranes moist Respiratory: There are no retractions, lungs are clear to auscultation Cardiovascular: Regular rate and rhythm Gastrointestinal: Abdomen is soft and nontender, no masses, bowel sounds normal Neurological: A&O, normal motor function, normal sensory exam, normal cranial nerves Skin: Warm and dry, no rashes Musculoskeletal: Neck is supple nontender Extremities: symmetrical, full range of motion (Lonnie Mathew) Constitutional: Initial Vital Signs Temperature (C) 36.8 C 05/05/17 13:18 Heart Rate 65 05/05/17 13:18 Respiratory Rate 18 05/05/17 13:18 Blood Pressure 193/80 H 05/05/17 13:18 O2 Sat (%) 93 05/05/17 13:18 O2 Delivery Mode Nasal Cannula O2 (L/minute) 2 Allergies/Adverse Reactions: lidocaine Allergy (Severe, Verified 05/05/17 13:15) Swelling/neck,face,throat codeine [Codeine] Allergy (Intermediate, Verified 05/05/17 13:15) Other-Enter Comments promethazine HCl [From Phenergan] Allergy (Verified 05/05/17 13:15) Home Medications: Medication Instructions Recorded Carvedilol [Coreg (*)] 6.25 mg PO BIDMEAL 10/17/16 Aspirin EC [Aspirin EC 81 mg (*)] 81 mg PO DAILY #0 tab 10/24/16 Atorvastatin Calcium [Lipitor 20 20 mg PO DAILY #30 tab 10/24/16 mg (*)] Losartan Potassium [Cozaar 50 mg 50 mg PO DAILY #30 tab 10/24/16 (*)] Herbals/Supplements -Info Only 1 ea PO DAILY 12/05/16 Acetaminophen [Tylenol 325mg (*)] 650 mg PO Q6 PRN #0 tab 12/11/16 Loratadine [Claritin 10 mg] 10 mg PO DAILY #0 tablet 12/11/16 Lasix 05/05/17 Potassium 05/05/17 Medical Decision Making - Diagnostics EKG Interpretation: EKG: Complete interpretation has been separately recorded in the [email or web address] archive. Summary impression: Sinus rhythm, nonspecific inferior changes noted (Lonnie Mathew) ED Course/Re-evaluation: The patient presents to the ED with several complaints. The patient has had a history of weakness and generalized fatigue. She does have evidence of a possible urinary tract infection. Additionally, the patient's daughter is quite concerned about several episodes of EKG she has noted while speaking on the phone with her mother over the past several days. The patient does have a history of TIA. She is status post right carotid endarterectomy. The patient is currently on daily aspirin. In the emergency department, the patient's NIH stroke scale is 0. She does not meet criteria for thrombolytics therapy. The patient was treated with IV ceftriaxone for her urinary tract infection. Given the patient's history of possible TIA I do feel she should be admitted to the hospital for observation and additional workup. Consultation was made with Dr. Garay from the hospitalist service. (Lonnie Mathew) Differential Diagnosis: Differential diagnosis considered includes stroke, TIA, metabolic abnormality, urinary tract infection, medication side effect, dehydration (Lonnie Mathew) - Data Points Laboratory Results: Laboratory Results 05/05/17 13:44 05/05/17 13:44 05/05/17 05/05/17 05/05/17 15:40 13:44 13:44 WBC 7.79 10^3/uL 10^3/uL (3.80-9.50) RBC 4.58 10^6/uL 10^6/uL (4.18-5.33) Hgb 13.5 g/dL g/dL (12.6-16.3) Hct 41.7 % % (38.0-47.0) MCV 91.0 fL fL (81.5-99.8) MCH 29.5 pg pg (27.9-34.1) MCHC 32.4 g/dL g/dL (32.4-36.7) RDW 16.5 % H % (11.5-15.2) Plt Count 246 10^3/uL 10^3/uL (150-400) MPV 9.3 fL fL (8.7-11.7) Neut % (Auto) 68.2 % % (39.3-74.2) Lymph % (Auto) 22.1 % % (15.0-45.0) [place] % (Auto) 7.8 % % (4.5-13.0) Eos % (Auto) 1.5 % % (0.6-7.6) Baso % (Auto) 0.3 % % (0.3-1.7) Nucleat RBC Rel Count 0.0 % % (0.0-0.2) Absolute Neuts (auto) 5.31 10^3/uL 10^3/uL (1.70-6.50) Absolute Lymphs (auto) 1.72 10^3/uL 10^3/uL (1.00-3.00) Absolute Monos (auto) 0.61 10^3/uL 10^3/uL (0.30-0.80) Absolute Eos (auto) 0.12 10^3/uL 10^3/uL (0.03-0.40) Absolute Basos (auto) 0.02 10^3/uL 10^3/uL (0.02-0.10) Absolute Nucleated RBC 0.00 10^3/uL 10^3/uL (0-0.01) Immature Gran % 0.1 % % (0.0-1.1) Immature Gran # 0.01 10^3/uL 10^3/uL (0.00-0.10) Sodium 138 mEq/L mEq/L (134-144) Potassium 4.4 mEq/L mEq/L (3.5-5.2) Chloride 100 mEq/L mEq/L (97-110) Carbon Dioxide 29 mEq/l mEq/l (22-31) Anion Gap 9 mEq/L mEq/L (8-16) BUN 19 mg/dL mg/dL (7-23) Creatinine 1.0 mg/dL mg/dL (0.6-1.0) Estimated GFR 53 Glucose 115 mg/dL H mg/dL (70-100) Calcium 9.1 mg/dL mg/dL (8.5-10.4) Troponin I < 0.012 ng/mL ng/mL (0.000-0.034) Urine Color YELLOW Urine Appearance HAZY Urine pH 7.0 (5.0-7.5) Ur Specific [place] 1.009 (1.002-1.030) Urine Protein NEGATIVE (NEGATIVE) Urine Ketones NEGATIVE (NEGATIVE) Urine Blood NEGATIVE (NEGATIVE) Urine Nitrate POSITIVE H (NEGATIVE) Urine Bilirubin NEGATIVE (NEGATIVE) Urine Urobilinogen NEGATIVE EU EU (0.2-1.0) Ur Leukocyte Esterase 2+ H (NEGATIVE) Urine RBC 1-3 /hpf /hpf (0-3) Urine WBC 25-50 /hpf H /hpf (0-3) Ur Epithelial Cells TRACE /lpf /lpf (NONE-1+) Amorphous Sediment PRESENT /hpf /hpf (NONE-1+) Urine Bacteria 1+ /hpf H /hpf (NONE SEEN) Urine Mucus TRACE /lpf /lpf (NONE-1+) Urine Glucose NEGATIVE (NEGATIVE) Medications Given: Discontinued Medications Sodium Chloride (Ns) 1,000 mls @ 0 mls/hr IV EDNOW ONE; Wide Open PRN Reason: Protocol Stop: 05/05/17 13:29 Last Admin: 05/05/17 13:42 Dose: 1,000 mls Departure - Departure Disposition: [facility] Inpatient Acute Clinical Impression: Transient cerebral ischemia, Urinary tract infection Condition: Fair
[2017-05-05] MEDS ORDERED: NS 1,000 ML IV ONE (13:28)
[2017-05-05 13:55] LABS: % IMMATURE GRANULYOCYTES 0.1 % (0.0-1.1); ABSOLUTE IMMATURE GRANULOCYTES 0.01 10^3/uL (0.00-0.10); ADD DIFF? NO; ADD MORPH? NO; ADD SCAN? NO; ATYPICAL LYMPHOCYTE FLAG 20 (0-99); FRAGMENT RBC FLAG 0 (0-99); HEMATOCRIT 41.7 % (38.0-47.0); HEMOGLOBIN 13.5 g/dL (12.6-16.3); LEFT SHIFT FLG 0 (0-99); LIPEMIA HEMOLYSIS FLAG 80 (0-99); MEAN CELL HEMOGLOBIN 29.5 pg (27.9-34.1); MEAN CELL HEMOGLOBIN CONCENTR. 32.4 g/dL (32.4-36.7); MEAN PLATELET VOLUME 9.3 fL (8.7-11.7); PLATELET CLUMPS FLAG 0 (0-99); PLATELET COUNT 246 10^3/uL (150-400); RED BLOOD CELL COUNT 4.58 10^6/uL (4.18-5.33); RED CELL DISTRIBUTION WIDTH 16.5 % (11.5-15.2)
--- NOTE | 2017-05-05 13:55 | CPEKG ---
Heart Rate: 65 RR Interval: 923 P-R Interval: 172 QRSD Interval: 106 QT Interval: 452 QTC Interval: 470 P [place]: 0 QRS [place]: 52 T Wave [place]: -4 EKG Severity - ABNORMAL ECG - EKG Impression: SINUS RHYTHM EKG Impression: INFERIOR INFARCT, AGE INDETERMINATE Electronically Signed By: Lonnie Mathew 05-May-2017 16:27:25
[2017-05-05 14:05] LABS: ANION GAP 9 mEq/L (8-16); CALCIUM 9.1 mg/dL (8.5-10.4); CARBON DIOXIDE 29 mEq/l (22-31); CHLORIDE 100 mEq/L (97-110); GLOMERULAR FILTRATION RATE 53; GLUCOSE 115 mg/dL (70-100); POTASSIUM 4.4 mEq/L (3.5-5.2); SODIUM 138 mEq/L (134-144)
[2017-05-05 14:13] LABS: TROPONIN I < 0.012 ng/mL (0.000-0.034)
[2017-05-05 15:59] LABS: COLOR YELLOW; LEUKOCYTE ESTERASE,URINE 2+ (NEGATIVE); NITRITE,URINE POSITIVE (NEGATIVE)
[2017-05-05 16:05] LABS: AMORPHOUS PRESENT /hpf (NONE-1+); BACTERIA 1+ /hpf (NONE SEEN); MUCUS TRACE /lpf (NONE-1+); WBC,URINE 25-50 /hpf (0-3)
[2017-05-05] MEDS ORDERED: ONDANSETRON DISINTEGRATING 4 MG TAB PO PRN (16:13)
[2017-05-05] MEDS ORDERED: ONDANSETRON 4 MG/2 ML VIAL IVP PRN (16:13)
[2017-05-05] MEDS ORDERED: ACETAMINOPHEN 325 MG TAB PO PRN (16:13)
[2017-05-05] MEDS: ASPIRIN 325 MG TAB PO SCH (17:10)
--- NOTE | 2017-05-05 18:00 | PDGENHP ---
History and Physical - Chief Complaint Acute dysarthria - History of Present Illness primary care provider: Dr. Cline Primary cobbler sole: Dr. Miguel Primary trust manager assistant Dr. Britt Primary general surgeon: Dr. Kelly HPI: 81-year-old female presenting with acute dysarthria characterized as word- finding difficulty with associated generalized fatigue and balance issues. Onset of symptoms was on the morning of presentation, and duration has been persistent thereafter. Patient reports that she had not slept well on the evening prior to this presentation and she did not get to bed until about 3:00 a.m.. She was consequently tired on the morning of this presentation, and then began experiencing the aforementioned symptoms. The symptoms also occurring in the setting of recent diarrhea, for which her primary care provider provided her with a C diff test. She reports that she is also significantly fatigued, exacerbated with exertion, but her daughter and granddaughter notes that the patient takes off her home supplemental oxygen and when she does activities, against the advice of her primary trust manager assistant. Patient otherwise denies any focal paresthesias or paresis, notes that her left lower extremity has chronically been edematous. History Information - Allergies/Home Medication List Allergies/Adverse Reactions: lidocaine Allergy (Severe, Verified 05/05/17 13:15) Swelling/neck,face,throat codeine [Codeine] Allergy (Intermediate, Verified 05/05/17 13:15) Other-Enter Comments promethazine HCl [From Phenergan] Allergy (Verified 05/05/17 13:15) Home Medications: Carvedilol [Coreg (*)] 6.25 mg PO BIDMEAL 10/17/16 [Last Taken 10/24/16] Herbals/Supplements -Info Only 1 ea PO DAILY 12/05/16 [Last Taken Unknown] Lasix 05/05/17 [Last Taken Unknown] Potassium 05/05/17 [Last Taken Unknown] I have personally reviewed and updated: family history, medical history, social history, surgical history - Past Medical History Additional medical history: Hypertension. Hyperlipidemia. aortic valve stenosis s/p bovine replacment. 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 critical carotid artery stenosis, s/p R/L CEA. DM2, diet controlled. Paroxysmal atrial fibrillation with Maze procedure, loop recorder. Chronic diastolic congestive heart failure - Surgical History Additional surgical history: Bovine aortic valve replacement. L1 and L3 kyphoplasty. cholecystectomy. R CEA and left CEA, complicated by hemorrhage while on systemic anticoagulation - Family History Additional family history: no recent sick family contacts - Social History Smoking Status: Former smoker Alcohol Use: None Drug Use: None Additional social history: Patient lives in independent living building, currently with her sister in law. Daughter lives nearby. Review of Systems Review of Systems: ROS: 10pt was reviewed & negative except for what was stated in HPI & below Constitutional: Reports: weakness Neurological: Reports: other ( dysarthria, gait imbalance) Physical Exam Physical Exam: Temp Pulse Resp BP Pulse Ox 36.8 C 67 19 164/88 H 98 05/05/17 17:04 05/05/17 17:04 05/05/17 17:04 05/05/17 17:04 05/05/17 17:04 O2 (L/minute) 2 Constitutional: not in pain, chronically ill appearing, obese, No no apparent distress ( moderate distress with word-finding difficulty), No uncomfortable Eyes: PERRL, anicteric sclera, EOMI Ears, Nose, Mouth, Throat: moist mucous membranes, hearing normal, ears appear normal, no oral mucosal ulcers Cardiovascular: systolic murmur ( 1/6 systolic at apex and sternum), edema ( 2+ left lower extremity edema, 1+ right lower extremity edema), No irregularly irregular, No tachycardia Respiratory: no respiratory distress, no rales or rhonchi, clear to auscultation Gastrointestinal: normoactive bowel sounds, soft, non-tender abdomen, no palpable masses, No distension Genitourinary: no bladder fullness, no bladder tenderness Skin: other ( slight erythema and discoloration left lower extremity without any open wounds or ulcerations) Neurologic: AAOx3, sensation intact bilaterally, weakness, CN II-XII Intact, other ( notable dysarthria), No facial droop Psychiatric: not encephalopathic, thought process linear, anxious ( intermittently), No agitated Lymph, Heme, Immunologic: other ( significant left lower extremity lymphedema) Lab Data & Imaging Review 05/05/17 13:44 05/05/17 13:44 WBC 7.79 10^3/uL (3.80-9.50) 05/05/17 13:44 RBC 4.58 10^6/uL (4.18-5.33) 05/05/17 13:44 Hgb 13.5 g/dL (12.6-16.3) 05/05/17 13:44 Hct 41.7 % (38.0-47.0) 05/05/17 13:44 MCV 91.0 fL (81.5-99.8) 05/05/17 13:44 MCH 29.5 pg (27.9-34.1) 05/05/17 13:44 MCHC 32.4 g/dL (32.4-36.7) 05/05/17 13:44 RDW 16.5 % (11.5-15.2) H 05/05/17 13:44 Plt Count 246 10^3/uL (150-400) 05/05/17 13:44 MPV 9.3 fL (8.7-11.7) 05/05/17 13:44 Neut % (Auto) 68.2 % (39.3-74.2) 05/05/17 13:44 Lymph % (Auto) 22.1 % (15.0-45.0) 05/05/17 13:44 [place] % (Auto) 7.8 % (4.5-13.0) 05/05/17 13:44 Eos % (Auto) 1.5 % (0.6-7.6) 05/05/17 13:44 Baso % (Auto) 0.3 % (0.3-1.7) 05/05/17 13:44 Nucleat RBC Rel Count 0.0 % (0.0-0.2) 05/05/17 13:44 Absolute Neuts (auto) 5.31 10^3/uL (1.70-6.50) 05/05/17 13:44 Absolute Lymphs (auto) 1.72 10^3/uL (1.00-3.00) 05/05/17 13:44 Absolute Monos (auto) 0.61 10^3/uL (0.30-0.80) 05/05/17 13:44 Absolute Eos (auto) 0.12 10^3/uL (0.03-0.40) 05/05/17 13:44 Absolute Basos (auto) 0.02 10^3/uL (0.02-0.10) 05/05/17 13:44 Absolute Nucleated RBC 0.00 10^3/uL (0-0.01) 05/05/17 13:44 Immature Gran % 0.1 % (0.0-1.1) 05/05/17 13:44 Immature Gran # 0.01 10^3/uL (0.00-0.10) 05/05/17 13:44 Sodium 138 mEq/L (134-144) 05/05/17 13:44 Potassium 4.4 mEq/L (3.5-5.2) 05/05/17 13:44 Chloride 100 mEq/L (97-110) 05/05/17 13:44 Carbon Dioxide 29 mEq/l (22-31) 05/05/17 13:44 Anion Gap 9 mEq/L (8-16) 05/05/17 13:44 BUN 19 mg/dL (7-23) 05/05/17 13:44 Creatinine 1.0 mg/dL (0.6-1.0) 05/05/17 13:44 Estimated GFR 53 05/05/17 13:44 Glucose 115 mg/dL (70-100) H 05/05/17 13:44 Calcium 9.1 mg/dL (8.5-10.4) 05/05/17 13:44 Troponin I < 0.012 ng/mL (0.000-0.034) 05/05/17 13:44 Urine Color YELLOW 05/05/17 15:40 Urine Appearance HAZY 05/05/17 15:40 Urine pH 7.0 (5.0-7.5) 05/05/17 15:40 Ur Specific [place] 1.009 (1.002-1.030) 05/05/17 15:40 Urine Protein NEGATIVE (NEGATIVE) 05/05/17 15:40 Urine Ketones NEGATIVE (NEGATIVE) 05/05/17 15:40 Urine Blood NEGATIVE (NEGATIVE) 05/05/17 15:40 Urine Nitrate POSITIVE (NEGATIVE) H 05/05/17 15:40 Urine Bilirubin NEGATIVE (NEGATIVE) 05/05/17 15:40 Urine Urobilinogen NEGATIVE EU (0.2-1.0) 05/05/17 15:40 Ur Leukocyte Esterase 2+ (NEGATIVE) H 05/05/17 15:40 Urine RBC 1-3 /hpf (0-3) 05/05/17 15:40 Urine WBC 25-50 /hpf (0-3) H 05/05/17 15:40 Ur Epithelial Cells TRACE /lpf (NONE-1+) 05/05/17 15:40 Amorphous Sediment PRESENT /hpf (NONE-1+) 05/05/17 15:40 Urine Bacteria 1+ /hpf (NONE SEEN) H 05/05/17 15:40 Urine Mucus TRACE /lpf (NONE-1+) 05/05/17 15:40 Urine Glucose NEGATIVE (NEGATIVE) 05/05/17 15:40 Visualized and Interpreted EKG results: Yes EKG Interpretation: Positive for: other ( normal sinus rhythm with Q-wave inferior and T-wave inversions in lead 3) Assessment & Plan Assessment: 81-year-old female presents with acute dysarthria in the setting of paroxysmal atrial fibrillation, prior CVA, possible urinary tract infection Plan: 1. Acute dysarthria. New problem this provider, further workup indicated. It is unclear whether the patient's fatigue, dysarthria, gait imbalance secondary to a possible urinary tract infection and poor sleep on the evening prior to this presentation, versus an overt CVA in the setting of paroxysmal atrial fibrillation, prior CVA, only on aspirin 81 mg for CVA prevention - if patient's loop recorder is MRI compatible, get MRI with and without contrast -interrogate patient's loop recorder to gauge whether she has had any atrial fibrillation burden -will get CT angiograms of the carotids given that the patient has had both of them surgically repaired but she did have bleeding complications during following her right carotid surgery and we would want to ensure that there has not been any postsurgical thrombus formation -get urine culture prior to initiating antibiotics for possible urinary tract infection, get above information prior to initiating antibiotics, repeat CBC -speech, OT, PT 2. paroxysmal atrial fibrillation. Patient has a CHADS2 Vasc score of at least 4 and systemic anticoagulation has been utilized in the past, but was discontinued in October of 2016 secondary to bleeding complications after undergoing right CEA, has been on aspirin 81 mg daily since that time -reviewed outside records including 12/29/2016 discharge summary by Jean-Pierre Sy, reporting that the patient was discharged after her left CEA on aspirin 81 and statin -would recommend the patient go back on systemic anticoagulation if there are no abnormalities noted on her CT angiogram of her carotids -will recommend re-initiated on her other home medications once reconciled 3. Chronic diastolic congestive heart failure. No exam evidence of exacerbation , continue home medications once reconciled 4. Lymphedema. Chronic, place TEDs, per patient request 5. hypertension. Chronic, continue home medications once reconciled 6. Chronic hypoxic respiratory failure. Patient is supposed to be on supplemental oxygen at all times, non-adherent with activity, recommended she wear w/ all activity Diet. Diabetic Prophylaxis. Risk patient, currently on SCDs, will determine whether we go with systemic anticoagulation in a.m. Code. Full per patient, her daughters mg p. o. net a Disposition. Anticipated discharge is 05/06/2017, pending further workup and stabilization of conditions outlined above. I have discussed patient's presentation with Dr. Lonnie Mathew, we both agree the patient warrants further workup for the conditions outlined above.
[2017-05-05] MEDS ORDERED: DICYCLOMINE 10 MG CAP PO PRN (22:26)
[2017-05-06 06:08] LABS: % IMMATURE GRANULYOCYTES 0.4 % (0.0-1.1); ABSOLUTE IMMATURE GRANULOCYTES 0.03 10^3/uL (0.00-0.10); ADD DIFF? NO; ADD MORPH? NO; ADD SCAN? NO; ATYPICAL LYMPHOCYTE FLAG 20 (0-99); FRAGMENT RBC FLAG 0 (0-99); HEMATOCRIT 37.6 % (38.0-47.0); HEMOGLOBIN 12.1 g/dL (12.6-16.3); LEFT SHIFT FLG 0 (0-99); LIPEMIA HEMOLYSIS FLAG 80 (0-99); MEAN CELL HEMOGLOBIN 29.4 pg (27.9-34.1); MEAN CELL HEMOGLOBIN CONCENTR. 32.2 g/dL (32.4-36.7); MEAN CELL VOLUME 91.3 fL (81.5-99.8); MEAN PLATELET VOLUME 9.7 fL (8.7-11.7); PLATELET CLUMPS FLAG 10 (0-99); PLATELET COUNT 229 10^3/uL (150-400); RED BLOOD CELL COUNT 4.12 10^6/uL (4.18-5.33); RED CELL DISTRIBUTION WIDTH 16.4 % (11.5-15.2)
[2017-05-06 06:21] LABS: ALANINE AMINOTRANSFERASE 25 IU/L (9-52); ALBUMIN 3.1 g/dL (3.5-5.0); ALKALINE PHOSPHATASE 104 IU/L (38-126); ANION GAP 7 mEq/L (8-16); ASPARTATE AMINOTRANSFERASE 20 IU/L (14-46); BILIRUBIN,TOTAL 0.7 mg/dL (0.1-1.4); CALCIUM 8.9 mg/dL (8.5-10.4); CARBON DIOXIDE 28 mEq/l (22-31); CHLORIDE 101 mEq/L (97-110); CHOLESTEROL 138 mg/dL (140-220); CHOLESTEROL/HDL RATIO 3.45 RATIO (1.00-4.44); GLOMERULAR FILTRATION RATE 53; GLUCOSE 108 mg/dL (70-100); HIGH DENSITY LIPOPROTEIN 40 mg/dL (40-85); LDL/HDL RATIO 1.93 RATIO (1.00-3.22); LOW DENSITY LIPOPROTEIN 77 mg/dL (80-100); MAGNESIUM 2.3 mg/dL (1.6-2.3); NON-HIGH DENSITY LIPOPROTEIN 98 mg/dL (90-129); POTASSIUM 4.7 mEq/L (3.5-5.2); SODIUM 136 mEq/L (134-144); TRIGLYCERIDE 109 mg/dL (35-135); VERY LOW DENSITY LIPOPROTEINS 21 mg/dL (8-25)
[2017-05-06] MEDS ORDERED: Herbals/Supplements -Info Only PO SCH (09:00)
[2017-05-06] MEDS: POTASSIUM CL 20 MEQ TAB PO SCH (09:01)
[2017-05-06] MEDS: ASPIRIN 325 MG TAB PO SCH (09:01)
[2017-05-06] MEDS: FUROSEMIDE 20 MG TAB PO SCH (09:01)
[2017-05-06] MEDS: ATORVASTATIN CALCIUM 20 MG TAB PO SCH (09:01)
[2017-05-06] MEDS: CARVEDILOL 6.25 MG TAB PO SCH ×2 (09:02→20:40)
[2017-05-06] MEDS: LOSARTAN POTASSIUM 50 MG TAB PO SCH (09:02)
--- NOTE | 2017-05-06 10:09 | NEUROPROG ---
Assessment: HOSPITAL NEUROLOGY CONSULT REQUESTING: Trevon Garay MD REASON: possible stroke HPI: 81 year old right-handed woman with a history of multiple ischemic strokes, afib , bilateral CEAs, HTN, HLD, DM2, AVR who presented to our ED yesterday with a possible stroke. Patient states the the night prior to presentation she was having difficulty sleeping. 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 She was having trouble recalling words. She had communicated with her granddaughter, and her granddaughter noted the word-finding difficulty and also noted some mild slurring of speech. Patient denied any focal lateralizing weakness, sensory loss, vision disturbance, VILLAFUERTE, fevers. Granddaughter was concerned, as the patient had a prior carotid embolic stroke that manifested with slurred speech, so she had the patient transported to the ED. Symptoms had resolved, but there was concern for a stroke, so she was admitted for further evaluation. Labs were drawn in the ED, including UA. UA was concerning for UTI, so urine culture was sent and is pending. No CT head was done. Of note, she has been off anticoagulation due to neck hematoma after her first CEA - maintained only on ASA. ROS: As per the HPI, otherwise a complete 12 point ROS was performed and is negative ALLERGIES AND MEDS: As recorded in the EMR - reviewed and reconciled PFSH: As per the intake H&P by Dr. Garay from yesterday EXAM: VS reviewed in EMR GEN: obese woman laying in NAD HEENT: NCAT, sclera anicteric, conjunctiva not injected, MMM, oropharynx clear, no scalp tenderness NECK: supple, nontender, no meningismus CV: RRR s1 s2 w/grade1-2 systolic murmur best at apex. Carotid pulses 2+ wo bruit NEURO: MS: awake, alert, oriented to all spheres. Speech nondysarthric. No language disturbance. Follows commands. Attends to both sides. Soem peisodic memory impairment on casual conversation. Mood euthymic. Adequate fund of knowledge. CN: pupils 3mm round and reactive. Intolerant of fundoscopy. VFF. Primary gaze centered. Full ocular motility, though smooth pursuits with saccadic intrusions. Facial sensation preserved. Face symmetric. Hearing grossly intact to finger rub. Palatoglossal movements intact. Shoulder shrug and head turn strong. MOTOR: normal bulk/tone. No adventitial movements. Left hip flexion chronically weak per patient at 4+/5, otherwise full power. SENSORY: intact LT/PP throughout and symmetric. No extinction. COORD: no ataxia FN/HS. Denia labored. REFLEX: plantars striatal. No clonus. DTRS 2/4. GAIT: deferred to PT safety eval DATA REVIEW: Labs reviewed in EMR LDL 77 A1c pending PERSONALLY INTERPRETED RESULTS AND DATA: None IMPRESSION AND RECOMMENDATIONS: // GENERALIZED WEAKNESS, RESOLVED // WORD-FINDING DIFFICULTY, RESOLVED // DYSARTHRIA, RESOLVED // POSSIBLE UTI Patient with episodes of generalized weakness, word-finding difficulty and dysarthria, now resolved. May have been a cardioembolic stroke, as she has afib and is not currently anticoagulated. However, may also be recrudescence of old stroke deficits due to UTI. Sleep deprivation may also be culprit. Will get MRI brain (ordered by hospitalist) after her implanted loop recorder data is downloaded Maintain normotension Cont statin - needs adjusted for goal LDL < 70 given prior stroke Optimize A1c for goal < 6.5 Cont ASA - will certainly need to be transitioned back to therapeutic anticoagulation given afib and prior strokes - very high risk for cardioembolism UTI investigation/management per primary team PT/OT/TIN FLIPPER consults Stroke education Further recommendations pending result of MRI Objective: Vital Signs Temp Pulse Resp BP Pulse Ox 37.0 C 63 15 137/73 H 93 05/06/17 07:19 05/06/17 09:02 05/06/17 07:19 05/06/17 09:02 05/06/17 07:19 Laboratory Results 05/06/17 04:34 05/06/17 04:34 05/05/17 05/06/17 05/07/17 05:59 05:59 05:59 Intake Total 300 Output Total 250 Balance 50 Allergies/Adverse Reactions: lidocaine Allergy (Severe, Verified 05/05/17 13:15) Swelling/neck,face,throat codeine [Codeine] Allergy (Intermediate, Verified 05/05/17 13:15) Other-Enter Comments promethazine HCl [From Phenergan] Allergy (Verified 05/05/17 13:15)
[2017-05-06 10:10] LABS: HEMOGLOBIN A1C 7.6 % (4.0-6.0)
--- NOTE | 2017-05-06 12:44 | HOSPPROG ---
Hospitalist Progress Note Assessment/Plan: DIAGNOSES: -Acute onset of mild expressive speech aphasia and dysarthria as well as mild balance issue; expressive aphasia persists today to minor degree -Hx of A Fib, not on anticoagulant, awaiting readings from her loop recorder, no A Fib here so far on monitor -prior hx of MAZE; not on anticoag as had bleeding episode after CEA earlier this yr -Dysphagia: episode of choking on KCL tab today, though had eaten breakfast prior to that w/o difficulty -Pyuria of uncertain significance -states a hx of urinary incontinence and recurrent UTIs that she can diagnose by the smell of her urine, and that she has a UTI almost every time she goes to see her PCP; does not now nor in past has she had typical UTI voiding sxs; I suspect she may have interstitial cystitis or other cause of chronic pyuria, ? if she really has UTI now or at other times -Hx diastolic heart dz, stable at present -DM2 -Carotid disease, s/p CEA Based on her exam with expressive aphasia, her hx of A Fib and her not being on anticoag, I have strong suspicion this is new CVA. While infection or other stressful illness can cause exacerbation of quiet old CVA issues, I am not convinced she has any infection now and I would not expect simple cystitis to cause such an episode. PLANS: -await interogation of loop recorder -await MRI brain -for now will proceed as if this is stroke -I have recommended she see a urologist as outpt to assess her incontinence and her reported frequent UTIs which I question SUBJECTIVE: pt very upset by her episode states still some word finding difficulty, and had a significant choking spell when swallowign KCL tab this am (prior to that ate breakfast ok), but strength otherwise nl no VILLAFUERTE no cardiac/chest sxs no fever sxs OBJECTIVE Vitals reviewed: stable without fever Public Relations Studies Director, my review: sinus Exam: alert oriented neuro: occaisional expressive aphasia where her speech just stops midsentence and it takes her a while to get going again, at times with some dysarthria; no other focal weakness skin warm dry color ok resps not labored lungs clear BSs heart regular abd soft nondistended nontender, bowel sounds present limbs warm, no edema iv site ok Laboratory data: Sugars good so far LDL cholesterol 77 MRI of brain is pending as is the interrogation of her loop recorder Objective: Vital Signs Temp Pulse Resp BP Pulse Ox 37.1 C 59 L 18 119/65 98 05/06/17 12:15 05/06/17 12:15 05/06/17 12:15 05/06/17 12:15 05/06/17 12:15 Laboratory Results 05/06/17 04:34 05/06/17 04:34 05/05/17 05/06/17 05/07/17 06:59 06:59 06:59 Intake Total 300 Output Total 250 200 Balance 50 -200 ICD10 Worksheet Patient Problems: Problems Problem Status Onset Transient cerebral ischemia Acute Urinary tract infection Acute CAD - Coronary arteriosclerosis Active Diabetes mellitus type 2 Active Dyslipidemia Active Essential hypertension Active Low back pain Active Replacement of aortic valve Active Chronic Disease Mgmt/Transitional Care Acute Hematoma of neck Acute Hypertensive urgency Acute
--- NOTE | 2017-05-06 15:36 | ASMTCMCOM ---
CM Note CM Note Notes: Pt has potential new CVA; PT/DRIVER LICENSE TECHNICIAN rec HHC, OT eval pending. Spoke w pt and granddaughter who are interested in HHC. Pt had [facility] in past, do NOT want their services. Pt granddaughter provided HHC list, she will do some research and let CM know HHC choice. Pt has a lot of family support. Of note: Pt lives in [facility] at [address] [facility] [address], the [address] on face sheet is [facility]. Date Signed: 05/06/2017 03:35 PM Electronically Signed By:CHIQUITA Fatima
[2017-05-06] MEDS ORDERED: GADOBUTROL 10 ML VIAL IVP ONE (16:56)
[2017-05-06] MEDS ORDERED: IOPAMIDOL (ISOVUE 370) 100 ML BTL IV ONE (17:13)
[2017-05-07 08:04] VITALS: RESP 12
[2017-05-07] MEDS: FUROSEMIDE 20 MG TAB PO SCH (08:40)
[2017-05-07] MEDS: ASPIRIN 325 MG TAB PO SCH (08:40)
[2017-05-07] MEDS: LOSARTAN POTASSIUM 50 MG TAB PO SCH (08:41)
[2017-05-07] MEDS: ATORVASTATIN CALCIUM 20 MG TAB PO SCH (08:41)
[2017-05-07] MEDS: CARVEDILOL 6.25 MG TAB PO SCH (08:41)
[2017-05-07] MEDS: POTASSIUM CL 20 MEQ TAB PO SCH (08:41)
--- NOTE | 2017-05-07 09:12 | NEUROPROG ---
Assessment: HOSPITAL NEUROLOGY CONSULT REQUESTING: Trevon Garay MD REASON: possible stroke BACKGROUND: 81 year old right-handed woman with a history of multiple ischemic strokes, afib , bilateral CEAs, HTN, HLD, DM2, AVR who presented to our ED 05/05 with a possible stroke. Patient states the the night prior to presentation she was having difficulty sleeping. 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 She was having trouble recalling words. She had communicated with her granddaughter, and her granddaughter noted the word-finding difficulty and also noted some mild slurring of speech. Patient denied any focal lateralizing weakness, sensory loss, vision disturbance, VILLAFUERTE, fevers. Granddaughter was concerned, as the patient had a prior carotid embolic stroke that manifested with slurred speech, so she had the patient transported to the ED. Symptoms had resolved, but there was concern for a stroke, so she was admitted for further evaluation. Labs were drawn in the ED, including UA. UA was concerning for UTI, so urine culture was sent and is pending. No CT head was done. Of note, she has been off anticoagulation due to neck hematoma after her first CEA - maintained only on ASA. INTERVAL HISTORY: Feeling back to her baseline. No new symptoms. EXAM: VS reviewed in EMR GEN: obese woman sitting in NAD - appears bright and energetic MS: awake, alert, oriented to all spheres. Speech nondysarthric. No language disturbance. Follows commands. Attends to both sides. Soem peisodic memory impairment on casual conversation. Mood euthymic. Adequate fund of knowledge. CN: pupils 3mm round and reactive. VFF. Primary gaze centered. Full ocular motility, though smooth pursuits with saccadic intrusions. Facial sensation preserved. Face symmetric. Hearing grossly intact to finger rub. Palatoglossal movements intact. Shoulder shrug and head turn strong. MOTOR: normal bulk/tone. No adventitial movements. Left hip flexion chronically weak per patient at 4+/5, otherwise full power. SENSORY: intact LT/PP throughout and symmetric. No extinction. COORD: no ataxia FN/HS. Denia labored. REFLEX: plantars striatal. No clonus. DTRS 2/4. GAIT: deferred to PT safety eval DATA REVIEW: Labs reviewed in EMR LDL 77 A1c 7.6 PERSONALLY INTERPRETED RESULTS AND DATA: MRI brain wow - no acute findings, specifically no acute stroke CTA neck - subtle stable enhancement right carotid bulb wall - small vein vs. post-op dissection vs. chronic intimal plaque. IMPRESSION AND RECOMMENDATIONS: // GENERALIZED WEAKNESS, RESOLVED // WORD-FINDING DIFFICULTY, RESOLVED // DYSARTHRIA, RESOLVED // PYURIA/BACTERIURIA Patient with episodes of generalized weakness, word-finding difficulty and dysarthria, now resolved. No evidence of new stroke on MRI. Likely recrudescence of old symptoms in the setting of toxic/metabolic disturbance and/ or sleep deprivation. She has had multiple strokes, as well as chronic microvascular ischemic changes of the brain, which, in conjunction with advancing age, will certainly lower her cerebral reserve such that even a small systemic insult can result in symptoms. Stroke workup does give us an opportunity to optimize her secondary preventive strategy. Maintain normotension Cont statin - needs adjusted for goal LDL < 70 given prior stroke Optimize A1c for goal < 6.5 Cont ASA - will certainly need to be transitioned back to therapeutic anticoagulation given afib and prior strokes - very high risk for cardioembolism. Should be cleared by vascular surgery prior to resuming anticoagulant given CTA findings. Metabolic/infectious workup per primary team PT/OT/TOPSTITCHER LOCKSTITCH consults Stroke education OK for discharge from neurologic perspective. Will sign off. Objective: Vital Signs Temp Pulse Resp BP Pulse Ox 36.7 C 63 12 110/62 93 05/07/17 07:59 05/07/17 08:41 05/07/17 07:59 05/07/17 08:41 05/07/17 07:59 05/06/17 05/07/17 05/08/17 05:59 05:59 05:59 Output Total 750 Balance -750 Allergies/Adverse Reactions: lidocaine Allergy (Severe, Verified 05/05/17 13:15) Swelling/neck,face,throat codeine [Codeine] Allergy (Intermediate, Verified 05/05/17 13:15) Other-Enter Comments promethazine HCl [From Phenergan] Allergy (Verified 05/05/17 13:15)
[2017-05-07 11:36] VITALS: BP 107/57; PULSE 56; TEMP 97.9; O2SAT 96
--- NOTE | 2017-05-07 12:45 | HOSPPROG ---
Hospitalist Progress Note Assessment/Plan: Patient is a 81 y/o female who presented to the ER with generalized weakness, trouble recalling words. Today is my first encounter with the patient, chart reviewed. *Word finding difficulty as well as balance issue MRI shows no acute stroke CTA of neck shows stable enhancement r carotid bulb /reviewed w Dr Kelly. Ok to restart aspirin. video esoph shows no aspiration meeting w ST now prior to dc increase statin therapy at dc *hx of afib reviewed monitor technician, she has been is sinus reviewed report from Linq monitor/ no afib *Dysarthria/resolved *pyuria hx of frequent UTI's, likely has chronic colonization or interstitial cystitis has a urologist to f/u with *DM2/A1C is 7.6 glucoses are stable, but may need an oral agent she is seeing her PCP today at 4 pm *carotid disease s/p CEA *hx of diastolic heart disease not in failure *Plan: dc home Subjective: Pat is feeling well/ anxious to go home. Objective: Vital Signs Temp Pulse Resp BP Pulse Ox 36.6 C 56 L 12 107/57 L 96 05/07/17 11:35 05/07/17 11:35 05/07/17 11:35 05/07/17 11:35 05/07/17 11:35 05/06/17 05/07/17 05/08/17 05:59 05:59 05:59 Output Total 750 200 Balance -750 -200 - Physical Exam Constitutional: no apparent distress, appears nourished, not in pain, obese Eyes: PERRL Ears, Nose, Mouth, Throat: hearing normal Cardiovascular: regular rate and rhythym, systolic murmur (soft) Respiratory: no respiratory distress Skin: warm Musculoskeletal: full muscle strength Neurologic: AAOx3, CN II-XII Intact, other (has some word finding difficulty but says it is much better), No pronator drift, No facial droop Psychiatric: interacting appropriately, not anxious, not encephalopathic ICD10 Worksheet Patient Problems: Problems Problem Status Onset Transient cerebral ischemia Acute Urinary tract infection Acute CAD - Coronary arteriosclerosis Active Diabetes mellitus type 2 Active Dyslipidemia Active Essential hypertension Active Low back pain Active Replacement of aortic valve Active Chronic Disease Mgmt/Transitional Care Acute Hematoma of neck Acute Hypertensive urgency Acute
--- NOTE | 2017-05-07 14:26 | GDS ---
[f rep st] DISCHARGE SUMMARY DISCHARGE DIAGNOSES: 1. Word-finding difficulties, as well as balance issues. 2. History of atrial fibrillation. 3. Dysarthria. 4. Pyuria. 5. Diabetes type 2 with an A1c of 7.6. 6. Carotid disease status post CEA. 7. History of diastolic heart failure, on Lasix. CONSULTATIONS DURING STAY: Hunter Olmos D.O. HISTORY: Briefly, the patient is a 81-year-old woman with a history of multiple ischemic strokes, atrial fibrillation, bilateral CEAs, hypertension, hyperlipidemia, diabetes type 2, and aortic valve replacement, who presented to the ER with a possible stroke. She was having difficulty sleeping and did not feel like herself. She was having trouble recalling words. She communicated with her granddaughter that she was having word-finding difficulty, and she also had some slurring of speech. She had a CTA of her neck performed, which showed a subtle at an enhancement along the anterior wall of the right carotid bulb in the region of previous carotid endarterectomy. In retrospect, it was stable when compared to other prior studies. It was indeterminate of what this was, showed no evidence of carotid stenosis on either side. In addition, she had a brain MRI, which did not have any findings of a new acute stroke. She was seen and evaluated by Neurology, whose recommendation was for her to resume her aspirin once her CTA was evaluated by Surgery. I spoke with Dr. Kelly. He felt this was stable, and it was okay for her to resume her aspirin. Today is for her to be discharged home and further follow up with multiple specialties. Recommended a echocardiogram prior to discharge, but the patient and grand daughter were anxious to have her discharged so they could take her to her appointment with her primary care provider. HOSPITAL COURSE: 1. Word-finding difficulty with balance issues. She is much improved. Recommendation is for 24-hour care by PT and OT. Her granddaughter said she will be with her 24 hours a day. They have a physical therapist arranged to who work with her. I have doubled up her statin prior to discharge and also recommended she take 325 mg of aspirin. 2. History of atrial fibrillation. 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 She has been in sinus rhythm during her stay. I reviewed the reports in the LINK monitor. She has no AFib or A flutter. 3. Dysarthria, resolved. 4. Pyuria. She has a history of frequent urinary tract infections. She likely has chronic colonization or interstitial cystitis. She has a urologist to follow up with. 5. Diabetes type 2. This has been diet controlled. Her glucoses have been stable. She has an appointment to see her PCP. They may re-evaluate and put her on some type of oral agent. 6. Carotid disease, status post CEA. 7. History of diastolic heart failure. She is on Lasix. She does not appear to be in any type of failure. CONDITION AT DISCHARGE: Stable. Blood pressure is 107/57, heart rate is 56, respiratory rate is 12, O2 sats on 1 L are 96%, temperature is 36.6 Celsius. MEDICATIONS AT DISCHARGE: Please see the EMR. DISCHARGE INSTRUCTIONS: 1. To return to the ER if she does have any further stroke symptoms. 2. Take aspirin 325 mg daily. 3. Lipitor dose has been increased to 40 mg. 4. To follow up with her primary care provider. She has an appointment today to further discuss her hemoglobin A1c at 7.6. 5. Follow up with her urologist. 6. To follow up with her accounts payable assistant. Would recommend an outpatient echocardiogram. Greater than 30 minutes discharging and coordinating patient's care. /[id number]/MODL MTDD
--- NOTE | 2017-05-07 15:52 | ASMTCMCOM ---
CM Note CM Note Notes: Pt and family decline HHC, have outpat MANAGER TREASURY and PT set up. Pt medically stable for d/c w family support, no CM d/c needs identified. Date Signed: 05/07/2017 03:52 PM Electronically Signed By:CHIQUITA Fatima
--- NOTE | 2017-05-07 15:53 | ASDISCHSUM ---
Discharge Information Plan Status:Home with No Needs Medically Cleared to Leave: Discharge Date:05/07/2017 02:37 PM CM D/C Disposition:Home, Routine, Self-Care ADT D/C Disposition:Home, Routine, Self-Care Projected Discharge Date:05/07/2017 02:37 PM Transportation at D/C: Discharge Delay Reason: Follow-Up Date:05/07/2017 02:37 PM Discharge Slot: Final Diagnosis: Placement Information Patient Contact Information Contact Name:TERRI Relationship:Daughter Address:[address] [place] City:[facility] Phone: [facility]/Zip Code:[place] [address] Email: Financial Information Financial Class: Primary Plan Desc:MEDICARE INPATIENT Primary Plan Number:[id number] Secondary Plan Desc:MEDICA[place] Secondary Plan Number:[id number] Assessment Information [facility] CM Progress Note CM Note CM Note Notes: Pt has potential new CVA; PT/RESIDENCE LIFE DIRECTOR rec HHC, OT eval pending. Spoke w pt and granddaughter who are interested in HHC. Pt had Optional [facility] in past, do NOT want their services. Pt granddaughter provided HHC list, she will do some research and let CM know HHC choice. Pt has a lot of family support. Of note: Pt lives in [facility] at [address] [facility] [address], the address on face sheet is formerly [facility]. Date Signed: 05/06/2017 03:35 PM Electronically Signed By:CHIQUITA Fatima [facility] CM Progress Note CM Note CM Note Notes: Pt and family decline HHC, have outpat RESIDENCE LIFE DIRECTOR and PT set up. Pt medically stable for d/c w family support, no CM d/c needs identified. Date Signed: 05/07/2017 03:52 PM Electronically Signed By:CHIQUITA Fatima Intervention Information Intervention Type:*MCPHERSON-Signed Date of Service:05/06/2017 09:57 AM Patient Type:Observation Staff Member:Laurence Horner Hours: Discipline: Severity: Comment:
== END 2017-05-07 14:37 | disposition home or self-care (01) | DRG 92 ==
LOC: F3N 16:44 → OBSVTOIN 05-06 17:34
PROVIDERS: ADMIT Internal Medicine; ATTEND Internal Medicine
DX: R47.1 Dysarthria and anarthria (principal); N39.0 Urinary tract infection, site not specified; J96.11 Chronic respiratory failure with hypoxia; R47.89 Other speech disturbances; I11.0 Hypertensive heart disease with heart failure; I50.32 Chronic diastolic (congestive) heart failure; I48.0 Paroxysmal atrial fibrillation; E11.9 Type 2 diabetes mellitus without complications; E78.5 Hyperlipidemia, unspecified; I89.0 Lymphedema, not elsewhere classified; Z95.2 Presence of prosthetic heart valve; Z87.891 Personal history of nicotine dependence; Z86.73 Personal history of transient ischemic attack (TIA), and cerebral infarction without residual deficits; Z95.1 Presence of aortocoronary bypass graft
CPT/HCPCS: 92523-GN; 92526-GN; 92610-GN; 92611-GN; 97161-GP; 97166-GO; 97530-GO; 97530-GP; A9585; G0378; G8978-GP-CI; G8979-GP-CI; G8980-GP-CI; G8987-GO-CJ; G8988-GO-CI; G8989-GO-CI; G8996-GN-CI; G8996-GN-CJ; G8997-GN-CH; G8997-GN-CI; G8998-GN-CI; J0696; Q9967

== ENCOUNTER 2017-05-27 23:39 | Emergency (ER) | payer OTHER, MEDICAID ==
[2017-05-28 00:52] LABS: ALANINE AMINOTRANSFERASE 24 IU/L (9-52); ALBUMIN 3.7 g/dL (3.5-5.0); ALKALINE PHOSPHATASE 123 IU/L (38-126); ANION GAP 10 mEq/L (8-16); ASPARTATE AMINOTRANSFERASE 22 IU/L (14-46); BILIRUBIN,TOTAL 0.7 mg/dL (0.1-1.4); BILIRUBIN-CONJUGATED 0.2 mg/dL (0.0-0.5); BILIRUBIN-UNCONJUGATED 0.5 mg/dL (0.0-1.1); CALCIUM 9.4 mg/dL (8.5-10.4); CARBON DIOXIDE 29 mEq/l (22-31); CHLORIDE 102 mEq/L (97-110); CREATININE 0.9 mg/dL (0.6-1.0); GLOMERULAR FILTRATION RATE > 60; GLUCOSE 125 mg/dL (70-100); POTASSIUM 4.2 mEq/L (3.5-5.2); SODIUM 141 mEq/L (134-144); TOTAL PROTEIN 7.1 g/dL (6.3-8.2)
[2017-05-28] MEDS ORDERED: IOPAMIDOL (ISOVUE-300) 100 ML BTL ONE (00:55)
[2017-05-28 00:57] LABS: % IMMATURE GRANULYOCYTES 0.3 % (0.0-1.1); ABSOLUTE IMMATURE GRANULOCYTES 0.03 10^3/uL (0.00-0.10); ADD DIFF? NO; ADD MORPH? NO; ADD SCAN? NO; ATYPICAL LYMPHOCYTE FLAG 30 (0-99); FRAGMENT RBC FLAG 0 (0-99); HEMATOCRIT 37.9 % (38.0-47.0); HEMOGLOBIN 12.6 g/dL (12.6-16.3); LEFT SHIFT FLG 0 (0-99); LIPEMIA HEMOLYSIS FLAG 80 (0-99); MEAN CELL HEMOGLOBIN 30.7 pg (27.9-34.1); MEAN CELL HEMOGLOBIN CONCENTR. 33.2 g/dL (32.4-36.7); MEAN CELL VOLUME 92.2 fL (81.5-99.8); PLATELET CLUMPS FLAG 0 (0-99); PLATELET COUNT 255 10^3/uL (150-400); RED BLOOD CELL COUNT 4.11 10^6/uL (4.18-5.33); RED CELL DISTRIBUTION WIDTH 16.9 % (11.5-15.2)
[2017-05-28 01:50] LABS: COLOR YELLOW; LEUKOCYTE ESTERASE,URINE 1+ (NEGATIVE); NITRITE,URINE NEGATIVE (NEGATIVE)
[2017-05-28 02:01] LABS: BACTERIA 3+ /hpf (NONE SEEN); RBC,URINE 25-50 /hpf (0-3); WBC,URINE 25-50 /hpf (0-3)
--- NOTE | 2017-05-28 02:19 | EDPHY ---
H & P Stated Complaint: diarrhea, abd pain x 10 weeks intermittently Time Seen by Provider: 05/28/17 00:25 HPI/ROS: HPI The patient presents with abdominal pain which she has chronically for the last 6 years though became worse tonight. The pain is epigastric, does not radiate, is moderate in severity. After dinner this evening she had profuse diarrhea lasting for several minutes. She has a longstanding history of intermittent diarrhea and has been evaluated by Gastroenterology. She has never been able to give stool specimens. The diarrhea was worse tonight and that is what prompted her to come into the emergency department. She does not have any vomiting, does not have any fevers or chills.. REVIEW OF SYSTEMS Constitutional: No fever, no chills. Eyes: No discharge. ENT: No sore throat. Cardiovascular: No chest pain, no palpitations. Respiratory: No cough, no shortness of breath. Gastrointestinal: No abdominal pain, no vomiting. Genitourinary: No hematuria. Musculoskeletal: No back pain. Skin: No rashes. Neurological: No headache. PMHx: CAD status post CABG, multiple abdominal operations including cholecystectomy and appendectomy Soc Hx: Lives at home with her daughter who helps with coordinate her care PHYSICAL General Appearance: Alert, no distress Eyes: Pupils equal and round no pallor or injection ENT, Mouth: Mucous membranes moist Respiratory: There are no retractions, lungs are clear to auscultation Cardiovascular: Regular rate and rhythm Gastrointestinal: Abdomen is soft and with mild tenderness in the epigastrium, no masses, bowel sounds normal Neurological: A&O, moves all extremities Skin: Warm and dry, no rashes Musculoskeletal: Neck is supple non tender Extremities: symmetrical, full range of motion Psychiatric: Patient is oriented X 3, there is no agitation Source: Patient Exam Limitations: No limitations - Personal History Current Tetanus/Diphtheria Vaccine: Yes Tetanus Vaccine Date: 2014 - Medical/Surgical History Hx Asthma: Yes Hx Chronic Respiratory Disease: Yes Hx Diabetes: Yes Hx Cardiac Disease: Yes Hx Renal Disease: No Hx Cirrhosis: No Hx Alcoholism: No Hx HIV/AIDS: No Hx Splenectomy or Spleen Trauma: No Other PMH: Aortic valve replacement, CABG x2, cervical cancer, spinal surgery x 4, frequent UTI, suraj, appy, tonsilectomy, osteoporosis, hysterectomy, HTN, irregular heartbeat (loop recorder), mini-strokes, hld, funcitonal incontinece - Social History Smoking Status: Former smoker Constitutional: Initial Vital Signs Temperature (C) 37.1 C 05/27/17 23:40 Heart Rate 78 05/27/17 23:40 Respiratory Rate 17 05/27/17 23:40 Blood Pressure 161/75 H 05/27/17 23:40 O2 Sat (%) 78 L 05/27/17 23:40 O2 Delivery Mode Room Air O2 (L/minute) 3 Allergies/Adverse Reactions: lidocaine Allergy (Severe, Verified 05/05/17 13:15) Swelling/neck,face,throat codeine [Codeine] Allergy (Intermediate, Verified 05/05/17 13:15) Other-Enter Comments promethazine HCl [From Phenergan] Allergy (Verified 05/05/17 13:15) Home Medications: Medication Instructions Recorded Carvedilol [Coreg (*)] 6.25 mg PO BIDMEAL 10/17/16 Herbals/Supplements -Info Only 1 ea PO DAILY 12/05/16 Acetaminophen [Tylenol 325mg (*)] 650 mg PO Q6 PRN #0 tab 12/11/16 Dicyclomine [Bentyl 10 MG (*)] 10 mg PO Q4HRS PRN 05/05/17 Furosemide [Lasix 20 MG (*)] 20 mg PO DAILY 05/05/17 Losartan Potassium [Cozaar] 100 mg PO DAILY 05/05/17 Potassium Cl [Klor-Con 20 meq (*)] 20 meq PO DAILY 05/05/17 Aspirin [Aspirin 325 mg (*)] 325 mg PO DAILY #30 tab 05/07/17 Atorvastatin Calcium [Lipitor 40 40 mg PO DAILY #30 tab 05/07/17 mg (*)] Medical Decision Making - Diagnostics Imaging Results: Imaging Impressions Abdomen CT 05/27/17 01:00 Impression: 1. Sigmoid diverticulosis without diverticulitis or bowel obstruction. 2. Atherosclerotic aorta with infrarenal abdominal aortic aneurysm measuring 3.3 cm. Recommend follow up. 3. Pleuroparenchymal fluid collection in the left lower lobe similar to previous study probably representing residual scarring/atelectasis and loculated pleural effusion; however, infection or pneumonitis is less likely. 4. Small supraumbilical fat-containing abdominal wall hernia defect again noted. 5. Right anterior deep subcutaneous abdominal wall fluid collection appears unchanged since September 2014. 6. Multiple kyphoplasties and mild compression fractures. Findings discussed with Emergency Department physician, Rosa Jeong MD, at 0135 hours, 05/28/2017. Final report concurs with initial preliminary interpretation. Imaging: Discussed imaging studies w/ glaze grinder Radiologist Differential Diagnosis: This is a 81-year-old female with multiple medical problems who presents from home with her daughter for chronic abdominal pain and diarrhea which both became worse this evening. The pain seems somewhat unprovoked. On exam, she has normal vital signs, she is mildly tender in her mid epigastrium. She is not having any ongoing diarrhea. Differential diagnosis includes colitis, diverticulitis, abdominal hernia, less likely retained gallstone. In the emergency department, basic labs were checked and were unremarkable. UA did show evidence of urinary tract infection, however the patient did not have any irritative voiding symptoms. I will send a urine culture and if the culture returns positive then I will treat. CT scan of her abdomen pelvis was performed and also did not demonstrate any acute changes compared to a prior CT scan. The cause of her symptoms is not entirely clear we were not able to obtain a stool sample here. I have advised the patient follow up with her dust collector ore crushing for further workup as needed. She is in agreement with this plan. - Data Points Laboratory Results: Laboratory Results 05/28/17 00:05 05/28/17 00:05 Microbiology Results: MICROBIOLOGY 05/28/17 01:25 Urine,Clean Catch Urine Culture - Preliminary Enterococcus Faecium Departure - Departure Disposition: Home, Routine, Self-Care Clinical Impression: Upper abdominal pain, Diarrhea Condition: Good Instructions: Chronic Diarrhea (ED) Additional Instructions: The cause of your abdominal pain is not clear. The CT scan of your abdomen did not show any acute findings. You should return to the emergency department if your worse in any way, otherwise please follow-up with your regular doctor. Referrals: NATHAN BUI [Primary Care Provider] - As per Instructions
[2017-05-28 02:22] VITALS: RESP 16
[2017-05-28 02:37] VITALS: BP 160/68; PULSE 67; TEMP 98.2; O2SAT 97
== END 2017-05-28 02:35 | disposition home or self-care (01) ==
DX: R10.10 Upper abdominal pain, unspecified (principal); R19.7 Diarrhea, unspecified; J45.909 Unspecified asthma, uncomplicated; E11.9 Type 2 diabetes mellitus without complications; I10 Essential (primary) hypertension; I25.810 Atherosclerosis of coronary artery bypass graft(s) without angina pectoris; Z79.82 Long term (current) use of aspirin; Z85.41 Personal history of malignant neoplasm of cervix uteri; Z90.49 Acquired absence of other specified parts of digestive tract; Z87.891 Personal history of nicotine dependence
CPT/HCPCS: 74177; 99285; Q9967

== ENCOUNTER → 2017-06-16 | Outpatient (CLI) | payer OTHER, MEDICAID | LOC: FIMAGING 08:30 | PROVIDERS: ATTEND Physician Assistant | DX: K22.8 Other specified diseases of esophagus (principal); K21.9 Gastro-esophageal reflux disease without esophagitis ==

== ENCOUNTER → 2017-06-22 | Outpatient (CLI) | payer OTHER, MEDICAID | LOC: CIMAGING 14:44 | PROVIDERS: ATTEND Internal Medicine Cardiovascular Disease | DX: R22.42 Localized swelling, mass and lump, left lower limb (principal) | CPT/HCPCS: 93971-PO ==

== ENCOUNTER 2017-07-31 17:18 | Inpatient (IN) | payer OTHER, MEDICAID ==
--- NOTE | 2017-07-31 17:20 | EDPHY ---
H & P HPI/ROS: HPI CHIEF COMPLAINT: Not feeling well, shortness of breath, home oxygen saturation 67%. HISTORY OF PRESENT ILLNESS: This patient is a very pleasant 81-year-old female significant past medical history for hypertension, coronary artery disease, aortic valve replacement, AFib, hyperlipidemia, embolic CVA, CABG, has valvular heart disease, presents to the emergency room by private vehicle with her daughters for not feeling well. Patient has a hard time describing how she feels. She states she feels unwell. She states today that she felt fine. She went over to go to her daughter's house this evening and when she arrived there she got short of breath, nauseated and lightheaded. She denies any chest pain or chest pressure. Denies pleuritic pain. She states she has been compliant with all her medications including her Lasix and potassium supplements. She does report to me that her balance wheel motion inspector would like to do an echocardiogram of her heart as she had aortic valve replacement and she is due to have echo coming up later this month. She denies any significant new lower extremity swelling. Her left leg is more swollen than the right she tells me this is chronic and it has been checked multiple times for DVT. She states that the leg is actually smaller than it normally is. At her daughter's house she had laid down she felt very lightheaded and short of breath they placed her on her home pulse ox and had an O2 sat of 67%. This was why she was wearing her 3 L nasal cannula oxygen. Upon arrival to the emergency room the patient complains of lightheadedness, generalized weakness globally not 1 focal area, as well as shortness of breath. Her vitals upon arrival were stable. His heart rate in the 60s. Pulse ox 97% on 3 L nasal cannula which is her baseline. She denies recent fever productive cough. Denies abdominal pain or vomiting. Does endorse nausea. Dr. Don Miguel is her balance wheel motion inspector. Past Medical History: Hypertension, hyperlipidemia, CVA, valvular heart disease , 3 L of oxygen around the clock. Past Surgical History: Aortic valve replacement, CABG ?2 Vessel Social History: Lives locally daughter is at bedside denies drugs alcohol tobacco products. Family History: ROS REVIEW OF SYSTEMS: A comprehensive 10 point review of systems is otherwise negative aside from elements mentioned in the history of present illness. Exam Constitutional appears nontoxic, triage nursing summary reviewed, vital signs reviewed, awake/alert. Eyes normal conjunctivae and sclera, EOMI, PERRLA. HENT normal inspection, atraumatic, moist mucus membranes, no epistaxis, neck supple/ no meningismus, no raccoon eyes. Respiratory clear to auscultation bilaterally, normal breath sounds, no respiratory distress, no wheezing. Cardiovascular rate normal, regular rhythm, no murmur, no edema, distal pulses normal. Gastrointestinal soft, non-tender, no rebound, no guarding, normal bowel sounds, no distension, no pulsatile mass. Genitourinary no CVA tenderness. Musculoskeletal no midline vertebral tenderness, full range of motion, no calf swelling, no tenderness of extremities, no meningismus, good pulses, neurovascularly intact. LLE: swelling Chronic worse on LLE compared to RLE. Skin pink, warm, & dry, no rash, skin atraumatic. Neurologic awake, alert and oriented x 3, AAOx3, moves all 4 extremities equally, motor intact, sensory intact, CN II-XII intact, normal cerebellar, normal vision, normal speech. Psychiatric normal mood/affect. Heme/Lymph/Immune no lymphadenopathy. Differential diagnosis includes but is not limited to: Vascular disease, ACS, atypical chest pain, pneumothorax, pneumonia, pulmonary embolism, aortic dissection, congestive heart failure, tumor, musculoskeletal pain, esophageal pain, GERD, peptic ulcer disease, pancreatitis Medical Decision Making: Plan for this patient IV establishment, full property assessment monitor, obtain EKG to rule out acute coronary syndrome, chest x-ray, BNP, TROP , closely reassess. Re-evaluation: EKG interpretation by me on record in [facility] system. Impression time of EK, sinus rhythm rate of 62 Q-waves noted in inferior leads to 3 AVF. I do not appreciate ST elevation. When compared to old EKG 05/05/2017 is very similar in morphology. Old Q-waves noted. ED x-ray chest one view: CHF, mild to moderate. 1803: Patient's x-ray reviewed shows cardiomegaly with pulmonary edema concerning for CHF. I did update the patient. Additionally I have ordered an extra dose of Lasix 40 mg IV. Her blood work has been reviewed she does have an elevated BNP. Her chloride is somewhat low. Potassium is slightly low. She did receive 500 cc of fluid prior to her chest x-ray and BNP resulting. Will fluid restrict at this time. Plan will be for admission for shortness of breath and CHF. Will admit to PCU at [facility]. 1813: Spoke with the hospitalist service Dr. Cavazos who agrees to admit. 1814: Updated patient and family at bedside they agree for transfer to [facility] PCU for CHF shortness of breath and generalized weakness. IV Lasix ordered. EMTALA form for transfer filled out. Spoke with Cardiology Dr. Hurley. Will plan on consulting on the patient. Source: Patient - Personal History Tetanus Vaccine Date: 2014 - Medical/Surgical History Hx Asthma: Yes Hx Chronic Respiratory Disease: Yes Hx Diabetes: Yes Hx Cardiac Disease: Yes Hx Renal Disease: No Hx Cirrhosis: No Hx Alcoholism: No Hx HIV/AIDS: No Hx Splenectomy or Spleen Trauma: No Other PMH: Aortic valve replacement, CABG x2, cervical cancer, spinal surgery x 4, frequent UTI, suraj, appy, tonsilectomy, osteoporosis, hysterectomy, HTN, irregular heartbeat (loop recorder), mini-strokes, hld, funcitonal incontinece - Social History Smoking Status: Former smoker Constitutional: Initial Vital Signs Temperature (C) 36.3 C 07/31/17 17:20 Heart Rate 66 07/31/17 17:20 Respiratory Rate 22 H 07/31/17 17:20 Blood Pressure 106/63 07/31/17 17:20 O2 Sat (%) 98 07/31/17 17:20 O2 Delivery Mode Nasal Cannula O2 (L/minute) 3 Allergies/Adverse Reactions: lidocaine Allergy (Severe, Verified 07/31/17 17:23) Swelling/neck,face,throat promethazine HCl [From Phenergan] Allergy (Severe, Verified 07/31/17 17:39) Anaphylaxis codeine [Codeine] Allergy (Intermediate, Verified 07/31/17 17:23) Other-Enter Comments Home Medications: Medication Instructions Recorded Carvedilol [Coreg (*)] 6.25 mg PO BIDMEAL 10/17/16 Herbals/Supplements -Info Only 1 ea PO DAILY 12/05/16 Acetaminophen [Tylenol 325mg (*)] 650 mg PO Q6 PRN #0 tab 12/11/16 Furosemide [Lasix 20 MG (*)] 40 mg PO BID 05/05/17 Losartan Potassium [Cozaar] 100 mg PO DAILY 05/05/17 Potassium Cl [Klor-Con 20 meq (*)] 20 meq PO BID 05/05/17 Aspirin [Aspirin 325 mg (*)] 325 mg PO DAILY #30 tab 05/07/17 Atorvastatin Calcium [Lipitor 40 40 mg PO DAILY #30 tab 05/07/17 mg (*)] Metolazone 2.5 mg PO DAILY 07/31/17 Pantoprazole Sodium [Protonix 40mg 40 mg PO DAILY 07/31/17 (*)] Medical Decision Making - Data Points Laboratory Results: Laboratory Results 07/31/17 17:35 07/31/17 17:35 Medications Given: Aspirin (Aspirin) 325 mg PO DAILY TOMMY Stop: 01/28/18 08:59 Last Admin: 08/02/17 08:11 Dose: 325 mg Atorvastatin Calcium (Lipitor) 40 mg PO DAILY TOMMY Stop: 01/28/18 08:59 Last Admin: 08/02/17 08:11 Dose: 40 mg Carvedilol (Coreg) 6.25 mg PO BIDMEAL TOMMY Stop: 01/28/18 07:59 Last Admin: 08/02/17 08:11 Dose: 6.25 mg Pantoprazole Sodium (Protonix) 40 mg PO DAILY TOMMY Stop: 01/28/18 08:59 Last Admin: 08/02/17 08:11 Dose: 40 mg Discontinued Medications Furosemide (Lasix Injection) 40 mg IVP EDNOW ONE Stop: 07/31/17 18:04 Last Admin: 07/31/17 18:32 Dose: 40 mg Sodium Chloride (Ns) 500 mls @ 1,000 mls/hr IV EDNOW ONE PRN Reason: Protocol Stop: 07/31/17 17:51 Last Admin: 07/31/17 17:39 Dose: 500 mls Potassium Chloride (Potassium Cl 10 Meq (Premix)) 100 mls @ 100 mls/hr IV Q1H TOMMY Stop: 08/01/17 11:14 Last Admin: 08/01/17 14:21 Dose: 100 mls Potassium Chloride (Potassium Chloride Oral Liquid) 20 meq PO ONCE ONE Stop: 07/31/17 20:25 Last Admin: 07/31/17 21:37 Dose: 20 meq Potassium Chloride (Potassium Chloride Oral Liquid) 30 meq PO ONCE ONE Stop: 08/02/17 02:31 Last Admin: 08/02/17 02:22 Dose: 30 meq Potassium Chloride (Klor-Con) 10 meq PO ONCE ONE PRN Reason: Protocol Stop: 08/02/17 07:53 Last Admin: 08/02/17 08:11 Dose: 10 meq Departure - Departure Disposition: [facility] Clinical Impression: Generalized weakness, Shortness of breath CHF (congestive heart failure) Qualifiers: Congestive heart failure type: unspecified congestive heart failure type Congestive heart failure chronicity: acute Qualified Code(s): I50.9 - Heart failure, unspecified Condition: Fair
[2017-07-31] MEDS ORDERED: NS 500 ML IV ONE (17:22)
[2017-07-31 17:38] LABS: % IMMATURE GRANULYOCYTES 0.3 % (0.0-1.1); ABSOLUTE IMMATURE GRANULOCYTES 0.02 10^3/uL (0.00-0.10); ADD DIFF? NO; ADD MORPH? NO; ADD SCAN? NO; ATYPICAL LYMPHOCYTE FLAG 10 (0-99); FRAGMENT RBC FLAG 0 (0-99); HEMATOCRIT 41.3 % (38.0-47.0); HEMOGLOBIN 13.6 g/dL (12.6-16.3); LEFT SHIFT FLG 0 (0-99); LIPEMIA HEMOLYSIS FLAG 80 (0-99); MEAN CELL HEMOGLOBIN 29.8 pg (27.9-34.1); MEAN CELL HEMOGLOBIN CONCENTR. 32.9 g/dL (32.4-36.7); MEAN CELL VOLUME 90.6 fL (81.5-99.8); MEAN PLATELET VOLUME 8.7 fL (8.7-11.7); PLATELET CLUMPS FLAG 0 (0-99); PLATELET COUNT 309 10^3/uL (150-400); RED BLOOD CELL COUNT 4.56 10^6/uL (4.18-5.33); RED CELL DISTRIBUTION WIDTH 14.6 % (11.5-15.2)
[2017-07-31 17:47] LABS: INR 1.03 (0.83-1.16); PROTIME(PATIENT) 13.4 SEC (12.0-15.0)
[2017-07-31 17:57] LABS: ALBUMIN 3.8 g/dL (3.5-5.0); BILIRUBIN,TOTAL 0.8 mg/dL (0.1-1.4); BILIRUBIN-CONJUGATED 0.2 mg/dL (0.0-0.5); BILIRUBIN-UNCONJUGATED 0.6 mg/dL (0.0-1.1); CALCIUM 9.4 mg/dL (8.5-10.4); CREATININE 1.2 mg/dL (0.6-1.0); MAGNESIUM 2.5 mg/dL (1.6-2.3); POTASSIUM 3.3 mEq/L (3.5-5.2); TOTAL PROTEIN 7.3 g/dL (6.3-8.2)
--- NOTE | 2017-07-31 18:00 | CPEKG ---
Heart Rate: 62 RR Interval: 968 P-R Interval: 188 QRSD Interval: 110 QT Interval: 436 QTC Interval: 443 P [place]: 33 QRS [place]: 33 T Wave [place]: 74 EKG Severity - ABNORMAL ECG - EKG Impression: SINUS RHYTHM EKG Impression: NONSPECIFIC INTRAVENTRICULAR CONDUCTION DELAY EKG Impression: INFERIOR INFARCT, AGE INDETERMINATE Electronically Signed By: Amita Sosa 01-Aug-2017 14:16:26
[2017-07-31 18:02] LABS: CREATINE KINASE-MB FRACTION 0.77 ng/mL (0.00-4.55); TROPONIN I 0.03 ng/mL (0.000-0.034)
[2017-07-31] MEDS ORDERED: FUROSEMIDE 40 MG/4 ML VIAL IVP ONE (18:03)
[2017-07-31] MEDS ORDERED: ONDANSETRON 4 MG/2 ML VIAL IVP PRN (18:14)
[2017-07-31] MEDS ORDERED: ONDANSETRON DISINTEGRATING 4 MG TAB PO PRN (18:14)
[2017-07-31] MEDS ORDERED: ACETAMINOPHEN 325 MG TAB PO PRN ×2 (18:14→21:55)
[2017-07-31 18:57] LABS: COLOR YELLOW; LEUKOCYTE ESTERASE,URINE NEGATIVE (NEGATIVE); NITRITE,URINE NEGATIVE (NEGATIVE); PH,URINE 5.5 (5.0-7.5)
[2017-07-31 19:04] LABS: MUCUS 1+ /lpf (NONE-1+); RBC,URINE OCCASIONAL /hpf (0-3); WBC,URINE NONE SEEN /hpf (0-3)
[2017-07-31 19:05] LABS: BACTERIA TRACE /hpf (NONE SEEN); HYALINE CASTS 15-25 /lpf (0-1)
[2017-07-31] MEDS ORDERED: POTASSIUM CL 20 MEQ/15 ML UDCUP PO ONE (20:24)
[2017-07-31] MEDS ORDERED: PROTOCOL POTASSIUM 1 DOSE MISC PRN (20:26)
--- NOTE | 2017-07-31 22:28 | GCON ---
[f rep st] CONSULTATION CARDIOLOGY CONSULTATION CHIEF COMPLAINT: Shortness of breath. HPI: This is a 81-year-old female, with a history of coronary artery disease, bioprosthetic aortic v alve replacement, CVA, PAD, who [place] [facility] to increasing shortness of breath and h ome oxygen saturation of 67%. The patient indicates over the last week, she has been feeling increas ing dyspneic with minimal exertion. She came to emergency room, where she was found to have an O2 sa turation of 67% and congestion on exam, as well as chest x-ray. The patient had an elevated BNP of o jim 700. The patient was administered 40 of IV Lasix and within an hour, indicated feeling increasin gly less shortness of breath. Patient was admitted to [facility] for further evaluatio n. Currently, the patient is resting quietly. Denies any active discomfort. ECG shows normal sinus rhythm, with no acute ST changes. She does have a history of chronic left lower extremity swelling. She denies any chest pain. Creatinine was slightly elevated and potassium was a little reduced at 3.3. Patient has been told in the past that she has a "narrowed" aortic valve and was to obtain furt her assessment later this month with an echocardiogram. PAST MEDICAL HISTORY: Significant for coronary artery disease, bioprosthetic aortic valve replacemen t. Patient underwent CABG and aortic valve replacement in 2010. History of Maze procedure, as well as mitral valve repair. History of PAD, status post carotid endarterectomies, hypertension. SOCIAL HISTORY: Patient denies any smoking or drinking. FAMILY HISTORY: Noncontributory. MEDICATIONS: Please see patient's attached medication sheet. REVIEW OF SYSTEMS: The patient denies any vision changes. No headache. No palpitations. No chest pain. She does indicate having moderate dyspnea with exertion. She does indicate having left lower extremity swelling, which is chronic. PHYSICIAL EXAM: VITAL SIGNS: Patient is currently afebrile, 96. Blood pressure 110/70, with a hear t rate of 62, respirations 12, saturating 95% on 2 L nasal cannula. HEENT: Pupils equal, round, gordon ctive to light and accommodation. Extraocular movements intact. CARDIOVASCULAR: Regular rate and r hythm S1, S2. There is 3/6 systolic murmur heard throughout the precordium. LUNGS: Decreased breat h sounds at the bases. ABDOMEN: Soft, nontender. No guarding. EXTREMITIES: There is left lower e xtremity edema. NEUROLOGIC: Patient is oriented x3. LABORATORY VALUES: Currently show a sodium 138, potassium 3.3, chloride 85, bicarb 36, BUN 34, creat inine 1.2. Magnesium 2.5. BNP of 738. White cells 7.3, hemoglobin 13.6, hematocrit 41, platelet co unt 309. INR 1.0. Chest x-ray shows congestive changes bilaterally, indicative of CHF. ASSESSMENT AND PLAN: Shortness of breath. At this time, the patient appears to have an episode of d ecompensated heart failure. Will treat with IV Lasix 40 mg twice daily, as well as supplement her po tassium. The patient has had, in the last 3 months, close followup with Dr. Miguel in our office and documentation has been made of the patient's increasing gradient across her aortic valve with decreas ing CECILLE. We will obtain a repeat surface echo in the morning. If it appears the patient has increas ing gradient across her aortic valve with a decreasing aortic valve area, most likely she is developi ng bioprosthetic aortic valve degeneration. We will follow this up most likely with a SALUD, plus-michelle s left and right heart catheterization in anticipation for eventual discussion about repeat surgery v ersus placement of a TAVR valve in her aortic position. We will check laboratory values in the norma g, supplement her potassium tonight, and continue to closely follow up. /[id number]/MODL
--- NOTE | 2017-07-31 22:49 | GHP ---
[f rep st] HISTORY AND PHYSICAL DATE OF ADMISSION: 07/31/2017 CHIEF COMPLAINT: Fatigue and worsening exertional dyspnea with worsening lower extremity edema. HISTORY OF PRESENT ILLNESS: A 81-year-old female with a history of bovine aortic valve replacement, who presents with a rather rapid onset of fatigue and shortness of breath that caused her to lie down at her daughter's house the day of presentation. The patient was very concerned about the symptoms, as she has additionally been experiencing progressive dyspnea on exertion and lower extremity edema. Therefore, she presented for evaluation. The patient actively is denying any chest pain. She does report shortness of breath which is markedly worse with exertion. She is on her baseline oxygen sat urations while at rest. The patient endorses chronic intermittent diarrhea which has been unchanged. She reports urinating frequently, particularly since Dr. Miguel has up-titrated her outpatient diure tic regimen. She denies any fevers, dysuria or hematuria. PAST MEDICAL HISTORY: 1. Bovine aortic valve replacement. 2. Aortic valve stenosis. 3. Hypertension. 4. Hyperlipidemia. 5. History of critical carotid artery stenosis, status post right and left CEA. 6. Diabetes. 7. Paroxysmal atrial fibrillation, status post Maze procedure with a loop recorder. 8. Chronic diastolic heart failure. 9. History of CVA in 2010, as well as 2017, thought embolic with minimal thought organization defici ts. SOCIAL HISTORY: The patient lives in independent living. She denies tobacco, alcohol or illicit noah gs. FAMILY HISTORY: Positive for vascular disease. ADVANCED DIRECTIVES: The patient wishes to be full cor, full tube. Her daughter is her medical deci carol maker. REVIEW OF SYSTEMS: A 10-point review of systems is negative with the exception of that reported in t he HPI. PHYSICAL EXAMINATION: VITAL SIGNS: Blood pressure 124/66, heart rate 63, respiratory rate 16, and 9 4% on 4.5 L and 36.8. GENERAL: This is an obese elderly female, sitting up in bed. HEENT: Notable for dry mucous membranes. Eye exam is negative for any icterus. CARDIAC: The patient has a loud s ystolic murmur heard across the precordium. PULMONARY: She has good respiratory effort with clear l bernie kearns. No rales are appreciated at the bases. GASTROINTESTINAL: Positive bowel sounds. ABDOM EN: Soft. MUSCULOSKELETAL: Trace, symmetric lower extremity edema. SKIN: Exam is negative for any rashes. NEUROLOGIC: She is alert and oriented x3. PSYCHIATRIC: She is pleasant and cooperative o n interview and exam. LABORATORY DATA: White count 7.3, hematocrit 41.3, which is up from recent baseline. Platelets of 30 9. Creatinine is 1.2. Potassium is 3.3, blood glucose 124. Liver function tests are normal. BNP i s 738. Urinalysis: The patient has numerous hyaline casts. Chest x-ray, which I personally reviewe d and interpreted is very poor quality with a suggestion of pulmonary edema. ASSESSMENT AND PLAN: This is a 81-year-old female, presenting with fatigue and shortness of breath. 1. Suspected acute on chronic heart failure, diastolic. The patient appears hypervolemic on examina tion, but I suspect she has actually intravascularly dry based on her acute kidney injury and the hya line casts in her urinalysis. She received a dose of intravenous Lasix at the outside emergency depa rtment. I will wait on additional diuretics at this time until Cardiology has reviewed her case. I am suspicious that her valve may be a significant part of her acute presentation. We will hold her h ome dosing of diuretics until seen by Cardiology for decisions related to ongoing diuresis. 2. Acute kidney injury. May be related to intravascular volume depletion. We will hold her losarta n and Lasix, as well as metolazone overnight and wait for discussions with Cardiology. 3. Bovine aortic valve replacement with stenosis. Cardiology had planned on a transesophageal echoc ardiogram. They have been contacted. We will make the patient n.p.o. after midnight in case they wo uld like to perform that SALUD tomorrow. 4. Hypertension. The patient's blood pressure is adequately controlled. Can re-initiate home medic ations after discussions with Cardiology in the morning. 5. History of cerebrovascular accident. We will continue the patient's aspirin and atorvastatin. 6. Diabetes, described as diet controlled. Blood sugar is 124. We will simply monitor. 7. Hypokalemia. Suspect secondary diuresis. We will replete per protocol. Her magnesium is measur ed high at admission. We will recheck in the morning. 8. Prophylaxis with Lovenox after plans related to TTE are clear. DIET: N.p.o. after midnight. DISPOSITION: I expect greater than 2 midnights as the patient is elderly with advanced aortic valve disease and acute kidney injury requiring medication monitoring and diagnostic workup. I have discus sed the case with the emergency department physician. The patient will be triaged to the PCU for car diac monitoring and care. /[id number]/MODL
--- NOTE | 2017-08-01 01:41 | PDMN ---
Medical Necessity Medical necessity: C/M review: est. > 2 MN LOS for eval and TX of suspected acute on chronic diastolic heart failure, acute kidney injury, shortness of breath, hypokalemia, requiring planned 08/01/2017 transesophageal echocardiogram, ongoing IV Lasix, cardiac monitoring, pulse oximetry, supplemental O2, acute inpt PT/OT, comorbid hypertension, diet controlled, diabetes, history of CVA, bovine aortic valce replacement, hyperlipidemia, critical carotid stenosis S/P right and left CEA, paroxysmal atrial fibrillation S/P maze procedure with loop recorder per H/P.
[2017-08-01 05:16] LABS: % IMMATURE GRANULYOCYTES 0.2 % (0.0-1.1); ABSOLUTE IMMATURE GRANULOCYTES 0.01 10^3/uL (0.00-0.10); ADD DIFF? NO; ADD MORPH? NO; ADD SCAN? NO; ATYPICAL LYMPHOCYTE FLAG 10 (0-99); FRAGMENT RBC FLAG 0 (0-99); HEMATOCRIT 38.1 % (38.0-47.0); HEMOGLOBIN 12.7 g/dL (12.6-16.3); LEFT SHIFT FLG 0 (0-99); LIPEMIA HEMOLYSIS FLAG 80 (0-99); MEAN CELL HEMOGLOBIN 30.3 pg (27.9-34.1); MEAN CELL HEMOGLOBIN CONCENTR. 33.3 g/dL (32.4-36.7); MEAN CELL VOLUME 90.9 fL (81.5-99.8); MEAN PLATELET VOLUME 9.3 fL (8.7-11.7); PLATELET CLUMPS FLAG 40 (0-99); PLATELET COUNT 292 10^3/uL (150-400); RED BLOOD CELL COUNT 4.19 10^6/uL (4.18-5.33); RED CELL DISTRIBUTION WIDTH 14.6 % (11.5-15.2)
[2017-08-01 05:28] LABS: ANION GAP 12 mEq/L (8-16); CALCIUM 8.9 mg/dL (8.5-10.4); CARBON DIOXIDE 36 mEq/l (22-31); CHLORIDE 91 mEq/L (97-110); CREATININE 1.3 mg/dL (0.6-1.0); GLOMERULAR FILTRATION RATE 40; GLUCOSE 130 mg/dL (70-100); MAGNESIUM 2.5 mg/dL (1.6-2.3); POTASSIUM 3.1 mEq/L (3.5-5.2); SODIUM 139 mEq/L (134-144)
--- NOTE | 2017-08-01 08:32 | PDCARPN ---
Cardiology Progress Note Chief Complaint: SOB Assessment/Plan: Assessment: SOB s/p bAVR/CABG in 2010 Plan: 08/01/17 08:27 Pt feels much better this AM Hold IV lasic given elevated BUN/CR Replete K Check TTE-- if bAVR shows worsening stenosis, can obtain SALUD. If SALUD confirms severity, pt will most likely need RHC/LHC for further evaluation. We can discuss options of re-do sternotomy vs [id number] (which may be more appropriate given her age/prior open heart surgery). Will continue to follow closely. Check labs in AM Subjective: no complaints Reviewed/Discussed With: other Time Spent With Patient: 25 min Objective: Vital Signs (8 Hrs) Temp Pulse Resp BP Pulse Ox 08/01/17 03:58 36.5 C 67 14 104/57 L 91 L Intake/Output (24 Hrs) 07/31/17 08/01/17 08/02/17 05:59 05:59 05:59 Intake Total 500 Output Total 1380 250 Balance -880 -250 Intake: IV Infused (ml) 500 Output: Urine (ml) 1380 250 Toilet 980 250 Other: Weight 89.9 kg Result Diagrams: 08/01/17 04:13 08/01/17 04:13 - Physical Exam Constitutional: healthy appearing Eyes: PERRL Ears, Nose, Mouth, Throat: moist mucous membranes Cardiovascular: regular rate and rhythm, systolic murmur Peripheral Pulses: 1+: femoral (R), femoral (L) Respiratory: no crackles Gastrointestinal: normoactive bowel sounds Skin: no rashes Musculoskeletal: no muscular tenderness Psychiatric: cooperative Lymph, Heme, Immunologic: no lymphadenopathy ICD10 Worksheet Patient Problems: Problems Problem Status Onset CHF (congestive heart failure) Acute Generalized weakness Acute Shortness of breath Acute CAD - Coronary arteriosclerosis Active Diabetes mellitus type 2 Active Dyslipidemia Active Essential hypertension Active Low back pain Active Replacement of aortic valve Active Chronic Disease Mgmt/Transitional Care Acute Hematoma of neck Acute Hypertensive urgency Acute Transient cerebral ischemia Acute Urinary tract infection Acute
[2017-08-01] MEDS ORDERED: Herbals/Supplements -Info Only PO SCH (09:00)
[2017-08-01] MEDS ORDERED: FUROSEMIDE 40 MG/4 ML VIAL IVP SCH (09:00)
[2017-08-01] MEDS: POTASSIUM Cl (KCl) 100 ML IV SCH ×4 (09:02→14:21)
--- NOTE | 2017-08-01 11:20 | ECHO ---
[email or web address] [address] [address] Main: [phone] Fax: Transthoracic Echocardiogram Name: JEFFREY EMERY MR#: [id number] Study Date: 08/01/2017 Study Time: 09:00 AM Date of : 1935 Age: 81 year(s) Height: 152.4 cm (60 in.) Weight: 89.81 kg (198 lb.) BSA: 1.86 m2 Gender: Female Examination: Echo Indication: HF, Aortic Valve Regurgitation, Increased O2 requirements Image Quality: Contrast: Requested by: Salvatore Hurley BP: 91 mmHg/46 mmHg Heart Rate: Rhythm: Indication: HF, Aortic Valve Regurgitation, Increased O2 requirements Procedure Staff Pinion And Wheel Truer: Frandy Michelle Reading Physician: Rex Ellis Requesting Provider: Conclusions: Normal global systolic LV function. EF is 58 %. Diastolic dysfunction is present. . The left atrium is moderately dilated. Mild mitral valve leaflet calcification is present. Trivial to mild mitral regurgitation. The aortic valve is a bioprosthesis. The Ao Mean PG is 26 mmHg with a Vmax of 3.5 m/s. The previous echo from 10/31 demonstrated a Ao mean PG of 22 mmHg and a Ao Vmax of 42 mmHg. There is no aortic valve regurgitation. Mild tricuspid regurgitation is present. Measurements: Chambers Valvular Assessment AV/MV Valvular Assessment TV/PV Normal Normal Normal Name Value Range Name Value Range Name Value Range Ao Genesis (MM): 2.4 cm (2.2 cm-3.7 AV Vmax: 3.47 m/s (1 m/s-1.7 TR Vmax: 2.05 mm/s ( - ) cm) m/s) TR PGmax: 17 mmHg ( - ) IVSd (2D): 0.8 cm (0.6 cm-1.1 AV maxP mmHg ( - ) syst. PAP: 22 mmHg ( - ) cm) AV meanP mmHg ( - ) PV Vmax: 1.63 m/s (0.6 m/s-0.9 LVDd (2D): 4.4 cm (3.9 cm-5.3 CECILLE (VTI): 0.8 cm ( - ) m/s) cm) MV E Vmax: 1.23 m/s ( - ) PV PGmax: 11 mmHg ( - ) LVDs (2D): 3.1 cm (2.1 cm-4 MV A Vmax: 0.88 m/s ( - ) cm) MV E/A: 1.40 ( - ) LVPWd (2D): 1.1 cm ( - ) LVOTd 1.9 cm 1.9 cm mm LVEF (2D): 58 (>=54 %) Continued Measurements: Patient: JEFFREY EMERY Study Date: 08/01/2017 Page 1 of 2 09:00 AM Chambers Valvular Assessment AV/MV Valvular Assessment TV/PV Name Value Name Value Name Value LADs Lon.6 cm MV E' Septal: 0.04 m/s CVP (est.): 5 mmHg LA Area: 20.0 cm2 MV E/E' Septal: 30.80 LA Volume: 86 ml MV E/E' Lateral: 26.30 LA Volume Index: 46.2 ml/m2 Findings: Left Ventricle: Normal size left ventricle. Normal global systolic LV function. EF is 58 %. Diastolic dysfunction is present. . Right Ventricle: Normal size right ventricle. Normal RV function. Left Atrium: The left atrium is moderately dilated. Right Atrium: The right atrium is normal in size. Mitral Valve: Mild mitral valve leaflet calcification is present. Trivial to mild mitral regurgitation. Aortic Valve: There is no aortic valve regurgitation. The aortic valve is a bioprosthesis. The Ao Mean PG is 26 mmHg with a Vmax of 3.5 m/s. The previous echo from 10/31 demonstrated a Ao mean PG of 22 mmHg and a Ao Vmax of 42 mmHg. Tricuspid Valve: The tricuspid valve appears normal. Mild tricuspid regurgitation is present. Pulmonic Valve: The pulmonic valve is normal in appearance and function. Aorta: The aorta is normal. (No Signature Object) Patient: JEFFREY EMERY Study Date: 08/01/2017 Page 2 of 2 09:00 AM [id number]
[2017-08-01] MEDS: ASPIRIN 325 MG TAB PO SCH (14:04)
[2017-08-01] MEDS: ATORVASTATIN CALCIUM 40 MG TAB PO SCH (14:05)
[2017-08-01] MEDS: PANTOPRAZOLE SODIUM 40 MG TAB PO SCH (14:05)
[2017-08-01] MEDS: CARVEDILOL 6.25 MG TAB PO SCH ×2 (14:10→18:25)
--- NOTE | 2017-08-01 14:35 | ASMTCMCOM ---
CM Note CM Note Notes: Pt admitted w/ fatigue, worsening exertional dyspnea and lower extremity edema. Per MD notes, pt w/ hx of bovine aortic valve replacement, and extensive cardiac hx. Pt also has a hx of two CVAs. The H&P indicates the pt lives in Indepent Living; the demographic summary indicates the pt lives w/ her dghtr. CM will need to clarify. The pt's dghtr is her MDPOA. Pt is scheduled for a SALUD on 08/02/17. Discharge needs remain to be determined at this time. CM will cont to follow for any potential needs. Current discharge plan: TBD C Date Signed: 08/01/2017 02:35 PM Electronically Signed By:Ce Day RN
[2017-08-01 15:17] LABS: POTASSIUM 3.4 mEq/L (3.5-5.2)
--- NOTE | 2017-08-01 17:18 | HOSPPROG ---
Hospitalist Progress Note Assessment/Plan: * Worsening (previous bovine AVR) -will likely need SALUD followed by right/left heart cath -re-do surgery vs. TAVR * Acute on chronic diastolic CHF -holding lasix, metolazone, losartan due to creatinine elevation * ARF - follow * Chronic respiratory failure - baseline 3L * CAD/CABG -ASA, statin, coreg * Afib s/p Maze * h/o embolic CVA * PVD s/p CEA * Obesity BMI 38 Subjective: No new complaints. Objective: Vital Signs Temp Pulse Resp BP Pulse Ox 36.8 C 63 19 130/57 H 95 08/01/17 15:31 08/01/17 15:31 08/01/17 15:31 08/01/17 15:31 08/01/17 15:31 Laboratory Results 08/01/17 04:13 08/01/17 14:55 07/31/17 08/01/17 08/02/17 05:59 05:59 05:59 Intake Total 500 240 Output Total 1380 950 Balance -880 -710 PT 13.4 SEC (12.0-15.0) 07/31/17 17:35 INR 1.03 (0.83-1.16) 07/31/17 17:35 CXR viewed, my personal interpretation is - CHF ECHO - worsening - Physical Exam Constitutional: no apparent distress, appears nourished, not in pain Cardiovascular: regular rate and rhythym, no murmur, rub, or gallop Respiratory: no respiratory distress, no rales or rhonchi, clear to auscultation Gastrointestinal: normoactive bowel sounds, soft, non-tender abdomen, no palpable masses Skin: no rashes or abrasions, no fluctuance, no induration Neurologic: AAOx3, sensation intact bilaterally Psychiatric: interacting appropriately, not anxious, not encephalopathic, thought process linear ICD10 Worksheet Patient Problems: Problems Problem Status Onset CHF (congestive heart failure) Acute Generalized weakness Acute Shortness of breath Acute CAD - Coronary arteriosclerosis Active Diabetes mellitus type 2 Active Dyslipidemia Active Essential hypertension Active Low back pain Active Replacement of aortic valve Active Chronic Disease Mgmt/Transitional Care Acute Hematoma of neck Acute Hypertensive urgency Acute Transient cerebral ischemia Acute Urinary tract infection Acute
[2017-08-01 19:34] LABS: POTASSIUM 3.3 mEq/L (3.5-5.2)
[2017-08-02] MEDS ORDERED: POTASSIUM CL 10 MEQ TAB PO ONE ×2 (01:35→07:52)
[2017-08-02] MEDS ORDERED: POTASSIUM CL 20 MEQ/15 ML UDCUP PO ONE (02:30)
[2017-08-02 06:19] LABS: ANION GAP 8 mEq/L (8-16); CALCIUM 8.7 mg/dL (8.5-10.4); CARBON DIOXIDE 36 mEq/l (22-31); CHLORIDE 94 mEq/L (97-110); CREATININE 1.1 mg/dL (0.6-1.0); GLOMERULAR FILTRATION RATE 48; GLUCOSE 141 mg/dL (70-100); POTASSIUM 3.7 mEq/L (3.5-5.2); SODIUM 138 mEq/L (134-144)
[2017-08-02] MEDS: ASPIRIN 325 MG TAB PO SCH (08:11)
[2017-08-02] MEDS: PANTOPRAZOLE SODIUM 40 MG TAB PO SCH (08:11)
[2017-08-02] MEDS: CARVEDILOL 6.25 MG TAB PO SCH (08:11)
[2017-08-02] MEDS: ATORVASTATIN CALCIUM 40 MG TAB PO SCH (08:11)
--- NOTE | 2017-08-02 09:03 | PDCARPN ---
Cardiology Progress Note Chief Complaint: SOB Assessment/Plan: Assessment: SOB s/p bAVR/CABG in 2010 Plan: 08/01/17 08:27 Pt feels much better this AM Hold IV lasic given elevated BUN/CR Replete K Check TTE-- if bAVR shows worsening stenosis, can obtain SALUD. If SALUD confirms severity, pt will most likely need RHC/LHC for further evaluation. We can discuss options of re-do sternotomy vs [id number] (which may be more appropriate given her age/prior open heart surgery). Will continue to follow closely. Check labs in AM 08/02/17 09:00 Pt's echo shows a NL EF with no significant change across aortic valve. I suspect there is some degeneration across this valve however. I had a long discussion with Linh and she strongly feels she would like to go home today and will keep her SALUD appt for 08/12. Her labs have improved and she is no longer SOB. If her SALUD on 08/12 shows severe /degenerated bAVR, then she realizes we will have to go forward with a work-up for AVR replacement including cath, CTs etc. She understands and agrees with the plan and will f/u with us as outpatient. Subjective: no complaints Reviewed/Discussed With: other (RN) Time Spent With Patient: 25 min Objective: Vital Signs (8 Hrs) Temp Pulse Resp BP Pulse Ox 08/02/17 08:00 36.7 C 64 14 120/57 L 96 08/02/17 04:00 36.7 C 63 20 110/58 L 94 Intake/Output (24 Hrs) 08/01/17 08/02/17 08/03/17 05:59 05:59 05:59 Intake Total 500 640 Output Total 1380 1650 Balance -880 -1010 Intake: Oral (ml) 240 IV Intake (ml) 400 IV Infused (ml) 500 Output: Urine (ml) 1380 1650 Toilet 980 1650 Other: Weight 89.9 kg Number of Voids Toilet 2 Result Diagrams: 08/01/17 04:13 08/02/17 06:00 - Physical Exam Constitutional: healthy appearing Eyes: PERRL Ears, Nose, Mouth, Throat: moist mucous membranes Cardiovascular: regular rate and rhythm, systolic murmur Peripheral Pulses: 1+: femoral (R), femoral (L) Respiratory: clear to auscultate bilat Gastrointestinal: normoactive bowel sounds Genitourinary: no suprapubic tenderness Skin: no rashes Musculoskeletal: no muscular tenderness Neurologic: AAOx3 Psychiatric: cooperative Lymph, Heme, Immunologic: no lymphadenopathy ICD10 Worksheet Patient Problems: Problems Problem Status Onset CHF (congestive heart failure) Acute Generalized weakness Acute Shortness of breath Acute CAD - Coronary arteriosclerosis Active Diabetes mellitus type 2 Active Dyslipidemia Active Essential hypertension Active Low back pain Active Replacement of aortic valve Active Chronic Disease Mgmt/Transitional Care Acute Hematoma of neck Acute Hypertensive urgency Acute Transient cerebral ischemia Acute Urinary tract infection Acute
[2017-08-02 11:59] VITALS: BP 111/66; PULSE 61; RESP 19; TEMP 98.2; O2SAT 88
--- NOTE | 2017-08-02 16:23 | ASDISCHSUM ---
Discharge Information Plan Status:Home with No Needs Medically Cleared to Leave:08/01/2017 Discharge Date:08/02/2017 04:12 PM CM D/C Disposition:Home, Routine, Self-Care ADT D/C Disposition:Home, Routine, Self-Care Projected Discharge Date:08/02/2017 04:12 PM Transportation at D/C: Discharge Delay Reason: Follow-Up Date:08/02/2017 04:12 PM Discharge Slot: Final Diagnosis: Placement Information Patient Contact Information Contact Name:TERRI Relationship:Daughter Address:[address] [place] City:[place] Phone: State/Zip Code:[place] [address] Email: Financial Information Financial Class: Primary Plan Desc:MEDICARE OUTPATIENT Primary Plan Number:[id number] Secondary Plan Desc:MEDICAID [place] Secondary Plan Number:[id number] Assessment Information [facility] CM Progress Note CM Note CM Note Notes: Pt admitted w/ fatigue, worsening exertional dyspnea and lower extremity edema. Per MD notes, pt w/ hx of bovine aortic valve replacement, and extensive cardiac hx. Pt also has a hx of two CVAs. The H&P indicates the pt lives in [facility] Living; the demographic summary indicates the pt lives w/ her dghtr. CM will need to clarify. The pt's dghtr is her MDPOA. Pt is scheduled for a SALUD on 08/02/17. Discharge needs remain to be determined at this time. CM will cont to follow for any potential needs. Current discharge plan: TBD Kwan Date Signed: 08/01/2017 02:35 PM Electronically Signed By:Ce Day RN Case Management Discharge Plan Note Case Management Discharge Discharge Order Complete? Answers: Yes Patient to Obtain Answers: Independently Medications Transportation Arranged Answers: Family/Friends Family Notified Answers: Yes Date Signed: 08/02/2017 03:18 PM Electronically Signed By:Keily Cali RN Intervention Information
--- NOTE | 2017-08-03 01:02 | GDS ---
[f rep st] DISCHARGE SUMMARY DISCHARGE DIAGNOSES: 1. Acute on chronic diastolic congestive heart failure. 2. Acute renal failure due to over diuresis. 3. Worsening aortic stenosis with previous bovine aortic valve replacement. 4. Chronic respiratory failure, baseline 3 L. 5. Coronary artery disease, status post CABG. 6. Atrial fibrillation, status post maze procedure. 7. History of embolic stroke. 8. Peripheral vascular disease, status post previous carotid endarterectomy. 9. Obesity, BMI 38. 10. History of cervical cancer with chronic left leg lymphedema. HISTORY: The patient is a 81-year-old female, who presented with chief complaint of shortness of marion ath. Her initial chest x-ray was suggestive of congestive heart failure. Her laboratory studies, mary clemons, were more consistent with dehydration and over diuresis as she had acute renal failure and a c ontraction alkalosis. She had recently been increased on Lasix by Dr. Miguel to 40 b.i.d., as well as the addition to metolazone, although the patient said it was her lymphedema in her leg as the cause of her swelling rather than worsening congestive heart failure. She was felt to be intravascularly d ry, so after admission all Lasix, metolazone, and losartan were held. She was found to be hypotensiv e with some blood pressures in the 80s. I also think she might be on too much blood pressure medicat ion. With holding these medications, caused her to improve greatly. At the time of discharge, her s ymptoms are all resolved, and she is back to her baseline at 3 L. She has known worsening aortic stenosis from her previous bovine aortic valve replacement. We rechec ked a transthoracic echo during this hospitalization. She does need a SALUD, and it was offered to her during this stay. However, she wishes to go home for the holidays and visit with her daughter, who is in from out of state and has an elective SALUD scheduled on August 12. She may need a redo surg saul versus a TAVR, but I think she is stable at this time to pursue this semiurgently. Cardiology sa w her throughout this hospitalization and wishes to defer SALUD until that time. DISCHARGE MEDICATIONS: Please see computer record for full detailed list. New medications: Lasix d ecreased to 40 mg p.o. once a day. Losartan decreased to 25 mg p.o. once a day. Metolazone disconti gisela. ADDITIONAL DISCHARGE INSTRUCTIONS: 1. SALUD August 12. 2. Daily weight. Call Dr. Miguel if increases by 2-3 pounds. 3. Family was counseled at length regarding the need for Lasix as they were told in the past this is worsening her osteoporosis, and she does have a history of multiple fractures in the past. I assure d them that the Lasix is essential. They have never previously been treated as an outpatient with bi sphosphate therapy for her osteoporosis. I encouraged them to discuss this with primary care. Greater than 30 minutes' time was spent arranging this discharge. Patient was seen and examined by shemar gamez on the day of discharge. /[id number]/MODL
== END 2017-08-02 16:12 | disposition home or self-care (01) | DRG 292 ==
LOC: CED 17:18 → CEDHOLD 18:14 → OBSVTOIN 18:14 → F2W 20:05
PROVIDERS: ADMIT Hospitalist; ATTEND Hospitalist
DX: I11.0 Hypertensive heart disease with heart failure (principal); I50.33 Acute on chronic diastolic (congestive) heart failure; N17.9 Acute kidney failure, unspecified; J96.10 Chronic respiratory failure, unspecified whether with hypoxia or hypercapnia; I35.0 Nonrheumatic aortic (valve) stenosis; E87.6 Hypokalemia; E86.0 Dehydration; I25.10 Atherosclerotic heart disease of native coronary artery without angina pectoris; I48.91 Unspecified atrial fibrillation; I73.9 Peripheral vascular disease, unspecified; E66.9 Obesity, unspecified; I89.0 Lymphedema, not elsewhere classified; M81.0 Age-related osteoporosis without current pathological fracture; E11.9 Type 2 diabetes mellitus without complications; Z68.38 Body mass index [BMI] 38.0-38.9, adult; Z86.73 Personal history of transient ischemic attack (TIA), and cerebral infarction without residual deficits; Z85.41 Personal history of malignant neoplasm of cervix uteri; Z95.3 Presence of xenogenic heart valve; Z87.891 Personal history of nicotine dependence; Z95.1 Presence of aortocoronary bypass graft
CPT/HCPCS: 71010-PO; 80048-PO; 80076-PO; 81003-PO; 81015-PO; 82550-PO; 82553-PO; 83690-PO; 83735-PO; 83880-PO; 84484-PO; 85025-PO; 85610-PO; 85730-PO; 97161-GP; 97165-GO; 97535-GO; G8978-GP-CI; G8979-GP-CI; G8987-GO-CJ; G8988-GO-CI; J1940

== ENCOUNTER 2017-08-12 07:36 | Day surgery (SDC) | payer OTHER, MEDICAID ==
[2017-08-12] MEDS ORDERED: MIDAZOLAM 2 MG/2 ML VIAL IVP ONE (07:42)
[2017-08-12] MEDS ORDERED: fentaNYL 100 MCG/2 ML INJ IVP ONE (07:42)
[2017-08-12] MEDS ORDERED: BENZOCAINE UNIT DOSE SPRAY HURRICAINE MM ONE (07:42)
[2017-08-12] MEDS ORDERED: NS 500 ML IV ONE (07:42)
--- NOTE | 2017-08-12 09:26 | PDANEPAE ---
ANE Past Medical History - Cardiovascular History Hx Hypertension: Yes Hx Arrhythmias: Yes Hx Chest Pain: No Hx Coronary Artery / Peripheral Vascular Disease: Yes Hx CHF / Valvular Disease: Yes Hx Palpitations: Yes Cardiovascular History Comment: AORTIC VALVE REPLACMENT. CABG, AFIB. HLD - Pulmonary History Hx COPD: Yes Hx Asthma/Reactive Airway Disease: No Hx Recent Upper Respiratory Infection: Yes Hx Oxygen in Use at Home: Yes Hx Sleep Apnea: Yes - Neurologic History Hx Cerebrovascular Accident: Yes Hx Seizures: No Hx Dementia: No Neurologic History Comment: 10/25/16 CVA - Endocrine History Hx Diabetes: Yes Hypothyroid: No Hyperthyroid: No Obesity: yes, severe - Renal History Hx Renal Disorders: No Renal History Comment: UTI - Liver History Hx Hepatic Disorders: No - Neurological & Psychiatric Hx Hx Neurological and Psychiatric Disorders: No - Cancer History Hx Cancer: Yes Cancer History Comment: CERVICAL CANCER - Congenital Disorder History Hx Congenital Disorders: No - GI History GERD: moderate Hx Gastrointestinal Disorders: Yes - Chronic Pain History Chronic Pain: Yes - Surgical History Prior Surgeries: AORTIC VALVE REPLACEMENT,. CABG X2,. SPINAL SURGERY X4. ILANA, APPY. HYSTERECTOMY ANE Review of Systems Review of Systems: - Exercise capacity METS (RN): 3 METS ANE Patient History - Allergies Allergies/Adverse Reactions: lidocaine Allergy (Severe, Verified 07/31/17 17:23) Swelling/neck,face,throat promethazine HCl [From Phenergan] Allergy (Severe, Verified 07/31/17 17:39) Anaphylaxis codeine [Codeine] Allergy (Intermediate, Verified 07/31/17 17:23) Other-Enter Comments - Home Medications Home Medications: Carvedilol [Coreg (*)] 6.25 mg PO BIDMEAL 10/17/16 [Last Taken 08/11/17 17:30] Herbals/Supplements -Info Only 1 ea PO DAILY 12/05/16 [Last Taken 08/11/17 09:00 ] Potassium Cl [Klor-Con 20 meq (*)] 20 meq PO TID 05/05/17 [Last Taken 08/11/17 17:30] Furosemide [Lasix 40 MG (*)] 1.5 tab PO DAILY 08/12/17 [Last Taken 08/11/17 17: 30] Omeprazole 20 mg PO DAILY 08/12/17 [Last Taken 08/11/17 09:00] - Anes Hx Anes Hx: no prior problems - Smoking Hx Smoking Status: Former smoker - Alcohol Use Alcohol Use: Rarely - Family Anes Hx Family Anes Hx: none Family Hx Anesthesia Complications: NONE ANE Labs/Vital Signs - Labs Result Diagrams: 08/12/17 08:20 - Vital Signs Height: 152 cm Weight: 93 kg ANE Physical Exam - Airway Neck exam: FROM Mallampati Score: Class 2 Mouth exam: dentures - Pulmonary Pulmonary: no respiratory distress, no rales or rhonchi, clear to auscultation - Cardiovascular Cardiovascular: regular rate and rhythym - ASA Status ASA Status: III ANE Anesthesia Plan Anesthesia Plan: MAC
[2017-08-12] MEDS ORDERED: PROPOFOL/EMULSION 500 MG/50 ML BOTTLE IV ONE (09:28)
[2017-08-12] MEDS ORDERED: LIDOCAINE 2% 100 MG/5 ML SYR ONE (09:28)
--- NOTE | 2017-08-12 09:33 | PDHPUP ---
History & Physical Update H&P update statement: This history and physical update is based on an assessment of the patient which was completed after admission or registration (within 24 hours), but prior to the surgery/procedure. H&P update: H&P reviewed & patient examined, no change in patient's condition since H&P completed
--- NOTE | 2017-08-12 11:11 | POSTANESTH ---
Post Anesthetic Evaluation Cardiovascular Status: Normal, Stable Respiratory Status: Normal, Stable Level of Consciousness/Mental Status: Can Participate in Eval Pain Control: Adequate, Prn Tx Ordered Nausea/Vomiting Control: Adequate, Prn Tx Ordered Complications Possibly Related to Anesthesia: None Noted
--- NOTE | 2017-08-12 16:05 | ECHO ---
[email or web address] [address] [address] Main: [phone] Fax: Transesophageal Echocardiography Name: JEFFREY EMERY MR#: [id number] Study Date: 08/12/2017 Study Time: 09:21 AM Date of : 1935 Age: 81 year(s) Height: ( ) Weight: ( ) BSA: Gender: Female Examination: SALUD Indication: evaluate bioprosthetic AVR Image Quality: Adequate Contrast: Requested by: Robert Miguel Heart Rate: Rhythm: Normal sinus rhythm BP: / Procedure Staff Knitter Machine: Leticia Monroy Reading Physician: Robert Miguel Requesting Provider: Robert Miguel SALUD Exam Details Conclusions: Normal size left ventricle. Mild concentric LV hypertrophy. Normal global systolic LV function. Grade 2 diastolic dysfunction (pseudonormalized LV filling pattern). Left atrial enlargement. No thrombus in left appendage. Mild to moderate mitral regurgitation. The aortic valve is a bioprosthesis. Bioprosthetic leaflets appear thin and mobile. NDSI=.41 Mean gradient across the valve 33mmHg. Trivial tricuspid valve regurgitation. Measurements: Chambers Valvular Assessment AV/MV Valvular Assessment TV/PV Normal Normal Normal Name Value Range Name Value Range Name Value Range Additional Measurements: Findings: Left Ventricle: Normal size left ventricle. Mild concentric LV hypertrophy. Normal global systolic LV function. Grade 2 diastolic dysfunction (pseudonormalized LV filling pattern). Left Atrium: Patient: JEFFREY EMERY Study Date: 08/12/2017 Page 1 of 2 09:21 AM Left atrial enlargement. Left Atrial Appendage: No thrombus in left appendage. Right Atrium: Right atrial enlargement. Mitral Valve: There is mild thickening of the mitral valve leaflets. Mild to moderate mitral regurgitation. Aortic Valve: The aortic valve is a bioprosthesis. No prosthesis regurgitation. Bioprosthetic leaflets appear thin and mobile. NDSI=.41 Mean gradient across the valve 33mmHg. Tricuspid Valve: The tricuspid valve appears normal. Trivial tricuspid valve regurgitation. Pulmonary artery pressure is not obtained due to inadequate TR jet. Aorta: Plaque noted in the ascending aorta.. l1n (No Signature Object) Patient: JEFFREY EMERY Study Date: 08/12/2017 Page 2 of 2 09:21 AM [id number]
== END 2017-08-12 12:39 | disposition home or self-care (01) ==
LOC: FCATH 07:36
PROVIDERS: ATTEND Internal Medicine Cardiovascular Disease
PROC: B246ZZ4 Ultrasonography of Right and Left Heart, Transesophageal (ICD-10-PCS; principal; 2017-08-12)
DX: I38 Endocarditis, valve unspecified (principal); Z95.2 Presence of prosthetic heart valve; I50.9 Heart failure, unspecified; I11.0 Hypertensive heart disease with heart failure; I25.10 Atherosclerotic heart disease of native coronary artery without angina pectoris; Z95.1 Presence of aortocoronary bypass graft; G47.33 Obstructive sleep apnea (adult) (pediatric); E78.5 Hyperlipidemia, unspecified; E11.40 Type 2 diabetes mellitus with diabetic neuropathy, unspecified; Z87.891 Personal history of nicotine dependence; I48.0 Paroxysmal atrial fibrillation
CPT/HCPCS: J2001; J2704

== ENCOUNTER 2017-10-04 15:40 | Emergency (ER) | payer OTHER, MEDICAID ==
--- NOTE | 2017-10-04 17:03 | EDPHY ---
H & P Time Seen by Provider: 10/04/17 15:44 HPI/ROS: 81 yo F presents c/o bruise on her left hand of one day duration, slight pain, does not recall and injury. NO fever or chills, no red streaks up arm. Review of systems As per HPI General no fever no chills no weakness HEENT no eye pain no eye discharge. No eye redness, no sore throat Respiratory no cough, no shortness of breath Cardiac no chest pain, no peripheral edema GI no abdominal pain, no diarrhea, no constipation, no nausea, no vomiting no flank pain, no hematuria, no dysuria Musculoskeletal no myalgias, no joint pain Heme no easy bruising, no easy bleeding Endo no polyuria, no polydipsia Skin positive rashes, no pruritus Neuro no syncope, no dizziness, no headaches Psych is no suicidal ideation, no homicidal ideation Past Medical/Surgical History: htn, copd, chf Social History: denies alcohol or drug use Smoking Status: Former smoker Physical Exam: 81 yo F on home oxygen, alert and oriented , jovial , nad, non toxic appearance , afebrile at, nc lungs cta no resp distress heart rrr ext left hand-no swelling, good cap refill, ecchymoses over distal 3rd metacarpal no swelling of fingers, no lymphangitis streaks, no vesicle area of ecchymoses 1 x 2 cm from of digits no hand swelling Constitutional: Initial Vital Signs Temperature (C) 36.7 C 10/04/17 15:47 Heart Rate 76 10/04/17 15:47 Respiratory Rate 16 10/04/17 15:47 Blood Pressure 131/61 H 10/04/17 15:47 O2 Sat (%) 94 10/04/17 15:47 O2 Delivery Mode Nasal Cannula O2 (L/minute) 3 Allergies/Adverse Reactions: codeine [Codeine] Allergy (Verified 10/04/17 15:54) Pt reports stomach problems fexofenadine [From Vicki] Allergy (Verified 10/04/17 15:54) trouble breathing lidocaine Allergy (Verified 10/04/17 15:54) Pt reports Swelling/neck,face,throat promethazine HCl [From Phenergan] Allergy (Verified 10/04/17 15:54) Pt reports Anaphylaxis Home Medications: Medication Instructions Recorded Carvedilol [Coreg (*)] 10/17/16 Potassium Cl [Klor-Con 20 meq (*)] 05/05/17 Furosemide [Lasix 40 MG (*)] 08/12/17 Omeprazole 08/12/17 Aspirin [Aspirin 325 mg (*)] 10/04/17 Atorvastatin Calcium [Lipitor 40 10/04/17 mg (*)] Losartan Potassium [Cozaar 25 mg 10/04/17 (*)] Medical Decision Making - Diagnostics Imaging Results: Imaging Impressions Hand X-Ray 10/04/17 16:09 Impression: 1. No acute osseous abnormalities. 2. Osteoarthrosis, moderate throughout the interphalangeal joints and severe at the first carpometacarpal joint. ED Course/Re-evaluation: Patient seen for rash on left hand of several hours duration, unknown injury X-ray left hand Negative for fracture Impression Left hand contusion Plan Discharge home Return if worsening Follow-up PCP Differential Diagnosis: contusion, fracture, cellulitis Departure - Departure Disposition: Home, Routine, Self-Care Clinical Impression: Contusion of left hand Condition: Good Instructions: Contusion in Adults (ED) Additional Instructions: Follow up with PCP if continuing to have pain. Referrals: Weston Cardoso MD [Primary Care Provider] - As per Instructions
[2017-10-04 17:20] VITALS: BP 96/57; PULSE 60; RESP 18; TEMP 97.9; O2SAT 95
== END 2017-10-04 17:11 | disposition home or self-care (01) ==
LOC: CED 15:40
DX: S60.222A Contusion of left hand, initial encounter (principal); J44.9 Chronic obstructive pulmonary disease, unspecified; I11.0 Hypertensive heart disease with heart failure; I50.9 Heart failure, unspecified; Z79.82 Long term (current) use of aspirin; Z87.891 Personal history of nicotine dependence; X58.XXXA Exposure to other specified factors, initial encounter
CPT/HCPCS: 73130-PO

== ENCOUNTER → 2017-10-07 | Outpatient (CLI) | payer OTHER, MEDICAID | LOC: FIMAGING 13:41 | PROVIDERS: ATTEND Internal Medicine | DX: Z13.820 Encounter for screening for osteoporosis (principal); M85.89 Other specified disorders of bone density and structure, multiple sites; M48.54XA Collapsed vertebra, not elsewhere classified, thoracic region, initial encounter for fracture; Z78.0 Asymptomatic menopausal state ==

== ENCOUNTER 2017-10-08 10:03 | Emergency (ER) | payer OTHER, MEDICAID ==
--- NOTE | 2017-10-08 10:46 | CPEKG ---
Heart Rate: 60 RR Interval: 1000 P-R Interval: 216 QRSD Interval: 104 QT Interval: 480 QTC Interval: 480 P [place]: 82 QRS [place]: 49 T Wave [place]: -4 EKG Severity - ABNORMAL ECG - EKG Impression: SINUS RHYTHM EKG Impression: INFERIOR INFARCT, AGE INDETERMINATE Electronically Signed By: Jered Caldwell 08-Oct-2017 12:47:31
--- NOTE | 2017-10-08 10:51 | EDPHY ---
H & P Stated Complaint: l leg swelling intractable despite lasix regimen Time Seen by Provider: 10/08/17 10:24 HPI/ROS: CHIEF COMPLAINT: Refractory asymmetric left leg edema HISTORY OF PRESENT ILLNESS: The patient presents the ED at the recommendation of her chemical cell changer for evaluation of refractory asymmetric left leg edema. The patient has a history of chronic left leg secondary to congestive heart failure, prior uterine surgery and vascular surgery. The patient has been increasing her Lasix at the recommendation of her primary care provider to 80 mg a day over the past several days. She did report increased urination, stable weights however little change in her underlying leg edema. The patient denies any acute shortness of breath. The patient was admitted to the hospital for over diuresis and renal insufficiency in July of 2017. The patient currently denies any fever, chest pain or cough. She is not anticoagulated. REVIEW OF SYSTEMS: A comprehensive 10 point review of systems is otherwise negative aside from elements mentioned in the history of present illness. Source: Patient - Personal History Current Tetanus/Diphtheria Vaccine: Yes Tetanus Vaccine Date: 2014 - Medical/Surgical History Hx Asthma: Yes Hx Chronic Respiratory Disease: Yes Hx Diabetes: No Hx Cardiac Disease: Yes Hx Renal Disease: No Hx Cirrhosis: No Hx Alcoholism: No Hx HIV/AIDS: No Hx Splenectomy or Spleen Trauma: No Other PMH: Aortic valve replacement, CABG x2, cervical cancer, spinal surgery x 4, frequent UTI, suarj, appy, tonsilectomy, osteoporosis, hysterectomy, HTN, irregular heartbeat (loop recorder), mini-strokes, hld, funcitonal incontinece, COPD - Social History Smoking Status: Former smoker - Physical Exam Exam: General Appearance: Elderly female, no acute distress, mildly obese Eyes: Pupils equal and round no pallor or injection ENT, Mouth: Mucous membranes moist Respiratory: There are no retractions, lungs are clear to auscultation Cardiovascular: Regular rate and rhythm Gastrointestinal: Abdomen is soft and nontender, no masses, bowel sounds normal Neurological: A&O, normal motor function, normal sensory exam, normal cranial nerves Skin: Warm and dry, no rashes Musculoskeletal: Neck is supple nontender Extremities: Asymmetric edema noted to the left calf, changes consistent with chronic stasis dermatitis noted Constitutional: Initial Vital Signs Temperature (C) 36.6 C 10/08/17 10:07 Heart Rate 65 10/08/17 10:07 Respiratory Rate 18 10/08/17 10:07 Blood Pressure 186/83 H 10/08/17 10:07 O2 Sat (%) 92 10/08/17 10:07 O2 Delivery Mode Nasal Cannula O2 (L/minute) 3 Allergies/Adverse Reactions: codeine [Codeine] Allergy (Verified 10/08/17 10:06) Pt reports stomach problems fexofenadine [From Vicki] Allergy (Verified 10/08/17 10:06) trouble breathing lidocaine Allergy (Verified 10/08/17 10:06) Pt reports Swelling/neck,face,throat promethazine HCl [From Phenergan] Allergy (Verified 10/08/17 10:06) Pt reports Anaphylaxis Home Medications: Medication Instructions Recorded Carvedilol [Coreg (*)] 10/17/16 Potassium Cl [Klor-Con 20 meq (*)] 05/05/17 Furosemide [Lasix 40 MG (*)] 08/12/17 Omeprazole 08/12/17 Aspirin [Aspirin 325 mg (*)] 10/04/17 Atorvastatin Calcium [Lipitor 40 10/04/17 mg (*)] Losartan Potassium [Cozaar 25 mg 10/04/17 (*)] Medical Decision Making - Diagnostics Imaging Results: Imaging Impressions Extremity Venous Study 10/08/17 10:46 Impression: No major deep venous thrombosis left leg. Findings and recommendations discussed with Emergency Department physician, Estella Alegria PA-C at 11:42 hour, 10/08/2017. Final report concurs with initial preliminary interpretation. ED Course/Re-evaluation: The patient presents to the ED for evaluation of asymmetric leg edema. The patient was taken for an ultrasound which demonstrates no evidence of a DVT. The patient does have a history of CHF however clinically has no evidence of heart failure today. Her chest x-ray is clear. The patient has no evidence of over diuresis or renal insufficiency. She does have asymmetry involving her left lower leg edema secondary to her prior surgery. I did curbside her regular chemical cell changer Dr. Miguel reviewing her workup in follow-up plan. He does recommend the patient stay on her increased dose of Lasix and follow up with him in the office next week. She should elevate extremity and attempt a compression dressing. Differential Diagnosis: Differential diagnosis considered includes lower extremity DVT, cellulitis, congestive heart failure, renal insufficiency, metabolic abnormality - Data Points Laboratory Results: Laboratory Results 10/08/17 11:09 10/08/17 11:09 10/08/17 10/08/17 11:09 11:09 WBC 6.06 10^3/uL 10^3/uL (3.80-9.50) RBC 4.05 10^6/uL L 10^6/uL (4.18-5.33) Hgb 12.6 g/dL g/dL (12.6-16.3) Hct 39.3 % % (38.0-47.0) MCV 97.0 fL fL (81.5-99.8) MCH 31.1 pg pg (27.9-34.1) MCHC 32.1 g/dL L g/dL (32.4-36.7) RDW 15.0 % % (11.5-15.2) Plt Count 245 10^3/uL 10^3/uL (150-400) MPV 9.2 fL fL (8.7-11.7) Neut % (Auto) 58.8 % % (39.3-74.2) Lymph % (Auto) 27.7 % % (15.0-45.0) Charlton % (Auto) 9.9 % % (4.5-13.0) Eos % (Auto) 3.1 % % (0.6-7.6) Baso % (Auto) 0.3 % % (0.3-1.7) Nucleat RBC Rel Count 0.0 % % (0.0-0.2) Absolute Neuts (auto) 3.56 10^3/uL 10^3/uL (1.70-6.50) Absolute Lymphs (auto) 1.68 10^3/uL 10^3/uL (1.00-3.00) Absolute Monos (auto) 0.60 10^3/uL 10^3/uL (0.30-0.80) Absolute Eos (auto) 0.19 10^3/uL 10^3/uL (0.03-0.40) Absolute Basos (auto) 0.02 10^3/uL 10^3/uL (0.02-0.10) Absolute Nucleated RBC 0.00 10^3/uL 10^3/uL (0-0.01) Immature Gran % 0.2 % % (0.0-1.1) Immature Gran # 0.01 10^3/uL 10^3/uL (0.00-0.10) Sodium 141 mEq/L mEq/L (135-145) Potassium 4.6 mEq/L mEq/L (3.5-5.2) Chloride 107 mEq/L mEq/L (97-110) Carbon Dioxide 25 mEq/l mEq/l (22-31) Anion Gap 9 mEq/L mEq/L (8-16) BUN 20 mg/dL mg/dL (7-23) Creatinine 0.8 mg/dL mg/dL (0.6-1.0) Estimated GFR > 60 Glucose 117 mg/dL H mg/dL (70-100) Calcium 9.0 mg/dL mg/dL (8.5-10.4) NT-Pro-B Natriuret Pep 1140 pg/mL H pg/mL (0-450) Departure - Departure Disposition: Home, Routine, Self-Care Clinical Impression: Leg edema, left Condition: Good Instructions: Leg Edema (ED) Additional Instructions: 1. I discussed her case with Dr. Robert Miguel who was been stain on the increased dose of Lasix this week. 2. Please return to the emergency department for any fever, difficulty breathing or other concerns. 3. Dr. Miguel does recommend elevating year extremity at night and wearing a compression stocking. Referrals: Weston Cardoso MD [Primary Care Provider] - As per Instructions Robert Miguel MD [Medical Doctor] - As per Instructions
[2017-10-08 11:18] LABS: PLATELET COUNT 245 10^3/uL (150-400)
[2017-10-08 13:52] VITALS: BP 165/74; PULSE 65; RESP 16; TEMP 97.7; O2SAT 98
== END 2017-10-08 13:51 | disposition home or self-care (01) ==
DX: R60.0 Localized edema (principal); J44.9 Chronic obstructive pulmonary disease, unspecified; I10 Essential (primary) hypertension; Z85.41 Personal history of malignant neoplasm of cervix uteri; Z87.891 Personal history of nicotine dependence; Z79.82 Long term (current) use of aspirin; Z95.1 Presence of aortocoronary bypass graft

== ENCOUNTER 2017-10-11 14:50 | Emergency (ER) | payer OTHER, MEDICAID ==
[2017-10-11 15:04] VITALS: BP 124/59; PULSE 66; RESP 20; TEMP 98.1; O2SAT 99
--- NOTE | 2017-10-11 15:35 | EDPHY ---
H & P Time Seen by Provider: 10/11/17 15:02 HPI/ROS: HPI Right shoulder discomfort. 81-year-old female by private vehicle with her daughter. This patient reports that she fell 1 year ago in her bathroom. Since this time she has had intermittent pain to the right shoulder and right trapezius area that radiates up into her neck. She reports that over the last 3 days she has had this pain but described as in the belly of her right trapezius and radiating up the right posterior lateral aspect of her neck. No new trauma. She reports that this is the same pain she has experienced many times in the past. She reports that it is just worse than usual and more constant. She has taken Tylenol for pain. She has been told she should not take NSAIDs. She was seen in our emergency department at [facility] on September 07. Her technician automatic referred her for asymmetric left lower extremity swelling and evaluation for DVT. Her ultrasound did not show any evidence of DVT. Her workup including chemistry and EKG were otherwise unremarkable and she was discharged. ROS: Constitutional: No fever, no chills. No weakness. Eyes: No discharge. No changes in vision. ENT: No sore throat. No nasal congestion or rhinorrhea. Respiratory: No cough. No shortness of breath. Cardiac: No chest pain, no palpitations. Gastrointestinal: No abdominal pain, no vomiting, no diarrhea. Genitourinary: No hematuria. No dysuria or increased frequency with urination. Musculoskeletal: No back pain. As above. Skin: No rashes. Neurological: No headache. No focal weakness or altered sensation. Past medical history: Aortic valve replacement, CABG x2, cervical cancer, spinal surgery x4, frequent UTI, cholecystectomy, appendectomy, tonsillectomy, hysterectomy, osteoporosis, hypertension, irregular heartbeat, mini strokes, functional incontinence, COPD. Social history: Former smoker. Here with her daughter currently. Physical Exam: General Appearance: Alert, elderly female, moderately obese, no apparent distress. This patient is responding to questions appropriately and in full sentences. This patient appears well-hydrated and well-nourished. Eyes: Pupils equal and round no pallor or injection. No lid edema, erythema or injection. Right shoulder and upper extremity exam: No asymmetry on gross inspection of the right upper extremity in comparison to the left upper extremity. The right glenohumeral joint ranges in all planes of motion without significant pain or impingement. No tenderness on palpation over the right AC joint. She does have some moderate muscle spasming involving the mid posterior trapezius body. She reports this is the source of her pain. There is no associated warmth, edema or ecchymosis to this area. Cervical spine is nontender on palpation. No midline tenderness. She does not have any significant paraspinal tenderness on palpation. The right upper extremity is neurovascularly intact. Respiratory: There are no retractions, lungs are clear to auscultation with good air movement bilaterally. Cardiovascular: Regular rate and rhythm. No murmur. Neurological: Motor sensory function is grossly intact. Cranial nerves are normal. Skin: Warm and dry, no rashes. No lacerations or abrasions. Extremities are symmetrical except noted. All joints range without pain or impingement. Psychiatric: No agitation. No depression. Database: EKG: Imaging: Procedures: Emergency department course: Vital signs reviewed and are normal. I reviewed her records from her emergency department visit on October 08. Her EKG report was reviewed as well as her ultrasound report and blood work. I feel that this patient's presentation is consistent with a muscle spasm of the trapezius/spasmodic torticollis. Plan will be to prescribe her Flexeril over the next 3 days. I will then have her follow up with her primary care physician for re-evaluation. She and her daughter feel comfortable with this plan. I reviewed return to emergency department precautions thoroughly with the 2 of them. All of their questions were answered. The patient was discharged in good condition with her daughter. Differential Diagnosis: The differential diagnosis on this patient includes but is not limited to trapezius muscle spasm, spasmodic torticollis. Acute coronary syndrome, upper extremity DVT, brachial plexus injury, acute radiculopathy, cervical spine injury unlikely. This represents a partial list of diagnoses considered. These considerations are based on history, physical exam, past history, reassessment and diagnostic testing. Smoking Status: Former smoker Constitutional: Initial Vital Signs Temperature (C) 36.7 C 10/11/17 14:57 Heart Rate 66 10/11/17 14:57 Respiratory Rate 20 10/11/17 14:57 Blood Pressure 124/59 H 10/11/17 14:57 O2 Sat (%) 99 10/11/17 14:57 O2 Delivery Mode Nasal Cannula O2 (L/minute) 3 Allergies/Adverse Reactions: codeine [Codeine] Allergy (Verified 10/11/17 15:04) Pt reports stomach problems fexofenadine [From Vicki] Allergy (Verified 10/11/17 15:04) trouble breathing guaifenesin [From Mucinex] Allergy (Verified 10/11/17 15:04) Dyspnea lidocaine Allergy (Verified 10/11/17 15:04) Pt reports Swelling/neck,face,throat promethazine HCl [From Phenergan] Allergy (Verified 10/11/17 15:04) Pt reports Anaphylaxis Home Medications: Medication Instructions Recorded Carvedilol [Coreg (*)] 10/17/16 Potassium Cl [Klor-Con 20 meq (*)] 05/05/17 Furosemide [Lasix 40 MG (*)] 08/12/17 Omeprazole 08/12/17 Aspirin [Aspirin 325 mg (*)] 10/04/17 Atorvastatin Calcium [Lipitor 40 10/04/17 mg (*)] Losartan Potassium [Cozaar 25 mg 10/04/17 (*)] Calcium 10/11/17 Cinnamon 10/11/17 Cyclobenzaprine [Flexeril 10 MG 10 mg PO TID #9 tab 10/11/17 (*)] Departure - Departure Disposition: Home, Routine, Self-Care Clinical Impression: Trapezius muscle spasm Condition: Good Instructions: Spasmodic Torticollis (ED) Additional Instructions: Read and follow provided instructions. Follow-up with your primary care physician in 2-3 days for re-evaluation as discussed. Take muscle relaxer medication as prescribed over the next 3 days. This medication may have a sedative affect. Return to the emergency department for worsening pain, loss of sensation or weakness in your right arm, chest pain, shortness of breath, fever or other serious concerns. Referrals: NONE *PRIMARY CARE P,. [Primary Care Provider] - As per Instructions Prescriptions: Cyclobenzaprine [Flexeril 10 MG (*)] 10 mg PO TID #9 tab
== END 2017-10-11 15:45 | disposition home or self-care (01) ==
LOC: CED 14:50
DX: M62.838 Other muscle spasm (principal); J44.9 Chronic obstructive pulmonary disease, unspecified; I10 Essential (primary) hypertension; Z79.82 Long term (current) use of aspirin; Z85.41 Personal history of malignant neoplasm of cervix uteri; Z87.891 Personal history of nicotine dependence

== ENCOUNTER 2017-11-13 21:25 | Inpatient (IN) | payer OTHER, MEDICAID ==
[2017-11-13] MEDS ORDERED: ONDANSETRON 4 MG/2 ML VIAL ONE (21:34)
[2017-11-13] MEDS ORDERED: NITROGLYCERIN 0.4 MG BTL SL ONE (21:34)
[2017-11-13] MEDS ORDERED: ASPIRIN 81 MG CHEWABLE TAB ONE (21:34)
[2017-11-13] MEDS ORDERED: IPRATROPIUM/ALBUTEROL 3 ML DEYVIAL ONE (21:35)
--- NOTE | 2017-11-13 21:41 | CPEKG ---
Heart Rate: 67 RR Interval: 896 P-R Interval: 140 QRSD Interval: 102 QT Interval: 444 QTC Interval: 469 P [place]: 0 QRS [place]: 38 T Wave [place]: -19 EKG Severity - ABNORMAL ECG - EKG Impression: SINUS RHYTHM EKG Impression: INFERIOR INFARCT, AGE INDETERMINATE Electronically Signed By: Jovani Avilez 13-Nov-2017 22:01:09
--- NOTE | 2017-11-13 21:48 | EDPHY ---
H & P Time Seen by Provider: 11/13/17 21:41 HPI/ROS: Chief complaint. Chest pain HPI. 81-year-old female here with left anterior chest discomfort that began about 9:00 p.m.. Radiates to the right side of her chest. It waxes and wanes. She did take aspirin prior to arrival. She describes the pain as"hurt". No shortness of breath. No change upper discomfort with breathing or exertion. No recent fever cough. She tells me she has never had chest discomfort before however she has had coronary artery bypass graft coronary artery disease and aortic replacement. Apparently her bovine aortic valve replacement is failing. She has chronic left lower extremity edema that has not changed and was ultrasounded several weeks ago and did not have DVT. Her chest pain is currently better ROS Constitutional. no fever/chills, no weakness Eyes. no problems with vision ENT. no sore throat, no nasal drainage Cardiovascular. Chest discomfort Respiratory. no shortness of breath, no cough Abdominal. no abdominal pain, no nausea/vomiting, no diarrhea . no problems urinating MS. no calf pain/swelling, no neck/back pain, no joint pain Skin. no rash Lymph. no swollen glands Neuro. no headache, no dizziness, no difficulty walking or with speech Past Medical/Surgical History: Past medical history significant for coronary artery disease status post CABG, aortic valve replacement, worsening aortic valve stenosis since replacement, hypertension, dyslipidemia, diabetes, paroxysmal atrial fibrillation status post Maze procedure, CHF, CVA thought to be embolic, chronic respiratory failure , morbid obesity Social History: , nonsmoker, no alcohol Smoking Status: Former smoker Physical Exam: General Appearance: Alert well-developed female mild distress. Vital signs significant for pulse oximeter 83% on room air. Eyes: Pupils equal and round no pallor or injection. ENT, Mouth: Mucous membranes are moist. Respiratory: There are no retractions, lungs are clear to auscultation. Cardiovascular: Regular rate and rhythm. Gastrointestinal: Abdomen is soft and nontender, no masses, bowel sounds normal. Neurological: Awake and alert, sensory and motor exams grossly normal. Skin: Warm and dry, no rashes. Musculoskeletal: Neck is supple nontender. Extremities symmetrical, full range of motion. Psychiatric: Patient is oriented X 3, there is no agitation. Constitutional: Initial Vital Signs Temperature (C) 36.9 C 11/13/17 21:53 Blood Pressure 161/71 H 11/13/17 21:53 O2 Sat (%) 83 L 11/13/17 21:53 O2 Delivery Mode Nasal Cannula O2 (L/minute) 3 Allergies/Adverse Reactions: codeine [Codeine] Allergy (Verified 11/13/17 22:11) Pt reports stomach problems fexofenadine [From Vicki] Allergy (Verified 11/13/17 22:11) trouble breathing guaifenesin [From Mucinex] Allergy (Verified 11/13/17 22:11) Dyspnea lidocaine Allergy (Verified 11/13/17 22:11) Pt reports Swelling/neck,face,throat promethazine HCl [From Phenergan] Allergy (Verified 11/13/17 22:11) Pt reports Anaphylaxis Home Medications: Medication Instructions Recorded Carvedilol [Coreg (*)] 10/17/16 Potassium Cl [Klor-Con 20 meq (*)] 05/05/17 Furosemide [Lasix 40 MG (*)] 08/12/17 Omeprazole 08/12/17 Aspirin [Aspirin 325 mg (*)] 10/04/17 Atorvastatin Calcium [Lipitor 40 10/04/17 mg (*)] Losartan Potassium [Cozaar 25 mg 10/04/17 (*)] Calcium 10/11/17 Cinnamon 10/11/17 Medical Decision Making - Diagnostics EKG Interpretation: EKG interpreted by me shows normal sinus rhythm normal interval and axis. QRS shows some inferior Q-waves. There is no ST elevation or depression. No arrhythmia. The rate is 67 This is not changed from previous EKG Imaging Results: Imaging Impressions Chest X-Ray 11/13/17 21:40 Impression: 1. Cardiomegaly. No acute failure. 2. Stigmata of open heart surgery and chronic left basilar pleural parenchymal scarring and effusion are unchanged. Chest x-ray reviewed by me appears to show congestive heart failure and left pleural effusion. There is cardiomegaly. I do not see a pneumonia Procedures: IV normal saline, monitor ED Course/Re-evaluation: Re-evaluation at 10:25 p.m.. Patient is stable. The patient, her daughter, and I discussed EKG, imaging, laboratory results. We discussed treatment plan including recommendation for admission. She expresses understanding and agreement I consulted discussed case with Dr. Pa, hospitalist, who agrees to the admission Differential Diagnosis: The patient has significant cardiac history with aortic valve replacement that apparently is failing. She has hypertension dyslipidemia and diabetes. She has coronary artery disease and has coronary artery bypass graft. Patient has chest discomfort earlier this evening. Workup currently is normal. I am concerned about acute coronary syndrome. - Data Points Laboratory Results: Laboratory Results 11/13/17 21:40 11/13/17 21:40 11/13/17 11/13/17 21:40 21:40 WBC 7.57 10^3/uL 10^3/uL (3.80-9.50) RBC 4.28 10^6/uL 10^6/uL (4.18-5.33) Hgb 13.5 g/dL g/dL (12.6-16.3) Hct 40.7 % % (38.0-47.0) MCV 95.1 fL fL (81.5-99.8) MCH 31.5 pg pg (27.9-34.1) MCHC 33.2 g/dL g/dL (32.4-36.7) RDW 14.4 % % (11.5-15.2) Plt Count 278 10^3/uL 10^3/uL (150-400) MPV 8.9 fL fL (8.7-11.7) Neut % (Auto) 54.4 % % (39.3-74.2) Lymph % (Auto) 33.6 % % (15.0-45.0) [place] % (Auto) 9.9 % % (4.5-13.0) Eos % (Auto) 1.7 % % (0.6-7.6) Baso % (Auto) 0.3 % % (0.3-1.7) Nucleat RBC Rel Count 0.0 % % (0.0-0.2) Absolute Neuts (auto) 4.12 10^3/uL 10^3/uL (1.70-6.50) Absolute Lymphs (auto) 2.54 10^3/uL 10^3/uL (1.00-3.00) Absolute Monos (auto) 0.75 10^3/uL 10^3/uL (0.30-0.80) Absolute Eos (auto) 0.13 10^3/uL 10^3/uL (0.03-0.40) Absolute Basos (auto) 0.02 10^3/uL 10^3/uL (0.02-0.10) Absolute Nucleated RBC 0.00 10^3/uL 10^3/uL (0-0.01) Immature Gran % 0.1 % % (0.0-1.1) Immature Gran # 0.01 10^3/uL 10^3/uL (0.00-0.10) Sodium 139 mEq/L mEq/L (135-145) Potassium 3.9 mEq/L mEq/L (3.5-5.2) Chloride 99 mEq/L mEq/L (97-110) Carbon Dioxide 28 mEq/l mEq/l (22-31) Anion Gap 12 mEq/L mEq/L (8-16) BUN 25 mg/dL H mg/dL (7-23) Creatinine 1.0 mg/dL mg/dL (0.6-1.0) Estimated GFR 53 Glucose 146 mg/dL H mg/dL (70-100) Calcium 9.2 mg/dL mg/dL (8.5-10.4) Troponin I < 0.012 ng/mL ng/mL (0.000-0.034) NT-Pro-B Natriuret Pep 561 pg/mL H pg/mL (0-450) Medications Given: Discontinued Medications Ondansetron HCl (Zofran) 4 mg IVP EDNOW ONE Stop: 11/13/17 22:10 Last Admin: 11/13/17 22:10 Dose: 4 mg Departure - Departure Disposition: [facility] [place] Inpatient Acute Clinical Impression: Chest pain Qualifiers: Chest pain type: unspecified Qualified Code(s): R07.9 - Chest pain, unspecified Condition: Fair Referrals: Patient,NotPresent [Primary Care Provider] - As per Instructions
[2017-11-13 21:54] LABS: PLATELET COUNT 278 10^3/uL (150-400)
[2017-11-13] MEDS ORDERED: ONDANSETRON 4 MG/2 ML VIAL IVP ONE (22:09)
[2017-11-13] MEDS ORDERED: ONDANSETRON DISINTEGRATING 4 MG TAB PO PRN (22:36)
[2017-11-13] MEDS ORDERED: ACETAMINOPHEN 325 MG TAB PO PRN (22:36)
[2017-11-13] MEDS ORDERED: ONDANSETRON 4 MG/2 ML VIAL IVP PRN (22:36)
--- NOTE | 2017-11-14 00:35 | PDGENHP ---
History and Physical - Chief Complaint Chest pain - History of Present Illness 81 yo F w/ hx of CAD s/p CABG, s/p bAVR, CVA, LLE lymphedema, pAF, and HTN presents with chest pain. Patient was in usual state of health until 9 PM this evening when she began experiencing L breast pain at rest. She states pain lasted 15 seconds. The pain came and went several times and then moved to the right side. By 9:30 the pain stopped altogether but she felt nauseated. At that point she presented to the ED. In the ED work-up was unremarkable, including no evidence of heart failure or arrhythmia, and patient is being admitted for observation. History Information - Allergies/Home Medication List Allergies/Adverse Reactions: codeine [Codeine] Allergy (Verified 11/13/17 22:11) Pt reports stomach problems fexofenadine [From Vicki] Allergy (Verified 11/13/17 22:11) trouble breathing guaifenesin [From Mucinex] Allergy (Verified 11/13/17 22:11) Dyspnea lidocaine Allergy (Verified 11/13/17 22:11) Pt reports Swelling/neck,face,throat promethazine HCl [From Phenergan] Allergy (Verified 11/13/17 22:11) Pt reports Anaphylaxis Home Medications: Carvedilol [Coreg (*)] 10/17/16 [Last Taken 08/11/17 17:30] Potassium Cl [Klor-Con 20 meq (*)] 05/05/17 [Last Taken 08/11/17 17:30] Furosemide [Lasix 40 MG (*)] 08/12/17 [Last Taken 08/11/17 17:30] Omeprazole 08/12/17 [Last Taken 08/11/17 09:00] Aspirin [Aspirin 325 mg (*)] 10/04/17 [Last Taken Unknown] Atorvastatin Calcium [Lipitor 40 mg (*)] 10/04/17 [Last Taken Unknown] Losartan Potassium [Cozaar 25 mg (*)] 10/04/17 [Last Taken Unknown] Calcium 10/11/17 [Last Taken Unknown] Cinnamon 10/11/17 [Last Taken Unknown] I have personally reviewed and updated: family history, medical history - Past Medical History Additional medical history: Hypertension. Hyperlipidemia. aortic valve stenosis s/p bovine replacment. 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 critical carotid artery stenosis, s/p R/L CEA. DM2, diet controlled. Paroxysmal atrial fibrillation with Maze procedure, loop recorder. Chronic diastolic congestive heart failure - Surgical History Additional surgical history: Bovine aortic valve replacement. L1 and L3 kyphoplasty. cholecystectomy. R CEA and left CEA, complicated by hemorrhage while on systemic anticoagulation - Family History Additional family history: no recent sick family contacts - Social History Smoking Status: Former smoker Additional social history: Patient lives in independent living building, currently with her sister in law. Daughter lives nearby. Review of Systems Review of Systems: ROS: 10pt was reviewed & negative except for what was stated in HPI & below Physical Exam Physical Exam: Temp Pulse Resp BP Pulse Ox 37.1 C 88 19 160/84 H 98 11/14/17 00:05 11/14/17 00:05 11/14/17 00:05 11/14/17 00:05 11/14/17 00:05 O2 (L/minute) 1 Constitutional: no apparent distress, obese Eyes: PERRL, EOMI Ears, Nose, Mouth, Throat: moist mucous membranes, no oral mucosal ulcers Cardiovascular: regular rate and rhythym, systolic murmur (2/6 @ RUSB) Respiratory: no respiratory distress, clear to auscultation Gastrointestinal: normoactive bowel sounds, soft, non-tender abdomen Skin: warm, normal color, other (LLE swelling and skin changes c/w lymphedema) Musculoskeletal: full muscle strength, no muscle tenderness Neurologic: AAOx3, CN II-XII Intact Psychiatric: interacting appropriately, not anxious Lab Data & Imaging Review 11/13/17 21:40 11/13/17 21:40 WBC 7.57 10^3/uL (3.80-9.50) 11/13/17 21:40 RBC 4.28 10^6/uL (4.18-5.33) 11/13/17 21:40 Hgb 13.5 g/dL (12.6-16.3) 11/13/17 21:40 Hct 40.7 % (38.0-47.0) 11/13/17 21:40 MCV 95.1 fL (81.5-99.8) 11/13/17 21:40 MCH 31.5 pg (27.9-34.1) 11/13/17 21:40 MCHC 33.2 g/dL (32.4-36.7) 11/13/17 21:40 RDW 14.4 % (11.5-15.2) 11/13/17 21:40 Plt Count 278 10^3/uL (150-400) 11/13/17 21:40 MPV 8.9 fL (8.7-11.7) 11/13/17 21:40 Neut % (Auto) 54.4 % (39.3-74.2) 11/13/17 21:40 Lymph % (Auto) 33.6 % (15.0-45.0) 11/13/17 21:40 [place] % (Auto) 9.9 % (4.5-13.0) 11/13/17 21:40 Eos % (Auto) 1.7 % (0.6-7.6) 11/13/17 21:40 Baso % (Auto) 0.3 % (0.3-1.7) 11/13/17 21:40 Nucleat RBC Rel Count 0.0 % (0.0-0.2) 11/13/17 21:40 Absolute Neuts (auto) 4.12 10^3/uL (1.70-6.50) 11/13/17 21:40 Absolute Lymphs (auto) 2.54 10^3/uL (1.00-3.00) 11/13/17 21:40 Absolute Monos (auto) 0.75 10^3/uL (0.30-0.80) 11/13/17 21:40 Absolute Eos (auto) 0.13 10^3/uL (0.03-0.40) 11/13/17 21:40 Absolute Basos (auto) 0.02 10^3/uL (0.02-0.10) 11/13/17 21:40 Absolute Nucleated RBC 0.00 10^3/uL (0-0.01) 11/13/17:40 Immature Gran % 0.1 % (0.0-1.1) 11/13/17 21:40 Immature Gran # 0.01 10^3/uL (0.00-0.10) 11/13/17 21:40 Sodium 139 mEq/L (135-145) 11/13/17 21:40 Potassium 3.9 mEq/L (3.5-5.2) 11/13/17 21:40 Chloride 99 mEq/L (97-110) 11/13/17 21:40 Carbon Dioxide 28 mEq/l (22-31) 11/13/17 21:40 Anion Gap 12 mEq/L (8-16) 11/13/17 21:40 BUN 25 mg/dL (7-23) H 11/13/17 21:40 Creatinine 1.0 mg/dL (0.6-1.0) 11/13/17 21:40 Estimated GFR 53 11/13/17 21:40 Glucose 146 mg/dL (70-100) H 11/13/17 21:40 Calcium 9.2 mg/dL (8.5-10.4) 11/13/17 21:40 Troponin I < 0.012 ng/mL (0.000-0.034) 11/13/17 21:40 NT-Pro-B Natriuret Pep 561 pg/mL (0-450) H 11/13/17 21:40 Imaging Review: Imaging Impressions Chest X-Ray 11/13/17 21:40 Impression: 1. Cardiomegaly. No acute failure. 2. Stigmata of open heart surgery and chronic left basilar pleural parenchymal scarring and effusion are unchanged. Visualized and Interpreted Chest x-ray results: Yes Chest X-Ray results: other (Cardiomegaly, no e/o failure) Visualized and Interpreted EKG results: Yes EKG Interpretation: Positive for: other (Inferior Q waves, no e/o acute ischemia ) Assessment & Plan Assessment: 81 yo F w/ hx of CAD s/p CABG, s/p bAVR, CVA, LLE lymphedema, pAF, and HTN presents with chest pain. Plan: 1. Chest pain - Atypical in that pain occurred at rest, migrated from left to right side quickly, and had no relation to exertion. Patient denies previous pain of this nature. She is pain free at this time. Work-up thus far unremarkable with negative troponin and unchanged ECG. No evidence of heart failure or arrhythmia. - Admit to PCU for observation - Monitor on telemetry, trend cardiac enzymes - Noting extensive cardiac history and atypical nature, will consult cardiology regarding next steps 2. CAD s/p CABG - 2v CHRIS to LAD, SVG to PRDA in 2010. Takes ASA, BB, and statin as outpatient. 3. s/p bAVR - #19 mm, placed in 2011. Recent SALUD revealed NDSI = 0.41 and mean gradient of 33 mm Hg. 4. pAF - S/p MAZE procedure, on ASA only. [id number] of 4. 5. HFpEF - On furosemide 60 mg po qAM currently, appears euvolemic. 6. HTN - On losartan and carvedilol. 7 LLE lymphedema - Chronic after vein harvesting for CABG. Diet - Regular, NPO @ MN Code - Full Ppx - LMWH Dispo - Admit to PCU under observation status
[2017-11-14 03:59] LABS: PLATELET COUNT 251 10^3/uL (150-400)
[2017-11-14] MEDS: ENOXAPARIN 40 MG/0.4 ML SYR SC SCH ×2 (10:50→20:06)
--- NOTE | 2017-11-14 12:09 | PDCARPN ---
Cardiology Progress Note Chief Complaint: Left breast pains with associated nausea Assessment/Plan: Assessment: Patient is a 81 y/o female, well known to [facility] (Dr. Belkys Miguel), with history of CAD s/p CABG (2V, 2010 : CHRIS to LAD and rSVG to RPDA), AVR (bio, 2010), MV repair (2010), MAZE (2010), pAF (on ASA alone given gait instability with [id number] score of 4), FRANKO with CPAP use, HTN, HLP, PVD (bilateral CEAs) , and DM, who presents to [facility] with acute complaints of left breast pains followed by some vague substernal discomfort, then nausea. Prior to these symptoms (acutely noted at 9 pm last night), the patient has been feeling very well. She was recently seen by Dr. Belkys Miguel on 10-19-17 after several ER admissions for edema (which had been relatively refractory to medical therapy). From a cardiovascular perspective, the patient was thought to be stable. Some concern about CHF (given the edema), but the edema has localized to the left lower extremity (the location of both vein harvest for CABG as well as lymph node harvest for "cancer"). At present, the patient is doing well, and appreciates no chest discomfort ( pressure, pain, or otherwise). No nausea is noted at present either - this was a post chest pressure/pain symptom that had been noted. Plan: (1) Would obtain a third cardiac biomarker later today with ECG - should there be any changes to symptoms noted, would consider ECG at that time (2) Arrangements for MPI (ignacio) tomorrow given history (CAD/CABG/AVR/MVr/HTN/ HLP/DM) and the symptoms noted (3) Would continue therapy on statins for HLP history in setting of CAD/CABG (4) ASA should continue for life with CAD/CABG (5) Losartan and Coreg should continue for HTN given aforementioned histories (6) Lasix has been used for assistance with the left lower extremity swelling, and should continue - would monitor K and Cr levels (7) Further recommendations after testing has been completed. Subjective: No cardiovascular complaints Reviewed/Discussed With: hospitalist Objective: Vital Signs (8 Hrs) Temp Pulse Resp BP Pulse Ox 11/14/17 11:16 36.2 C 65 18 122/56 H 94 11/14/17 07:53 36.5 C 60 13 113/50 L 95 Intake/Output (24 Hrs) 11/13/17 11/14/17 11/15/17 05:59 05:59 05:59 Intake Total 0 Balance 0 Intake: IV Intake (ml) 0 Other: Weight 96.2 kg Number of Voids Bedside Commode 1 Incontinence 1 1 Result Diagrams: 11/14/17 03:30 11/14/17 03:30 Cardiac Labs: Cardiac Lab Results (72 Hrs) 11/14/17 03:30 Troponin I < 0.012 EKG: Normal sinus rhythm - Physical Exam Constitutional: WDWN, healthy appearing, no apparent distress, obese Eyes: PERRL, EOMI Ears, Nose, Mouth, Throat: moist mucous membranes Cardiovascular: regular rate and rhythm, systolic murmur (II/ ALYSON), pulses symmetric bilat, No jugular vein distention Peripheral Pulses: 1+: dorsalis-pedis (L), 2+: dorsalis-pedis (R) Respiratory: clear to auscultate bilat, reduced air movement Gastrointestinal: normoactive bowel sounds Skin: no rashes, other (edema (query some degree of lymphedema) to the LLE) Neurologic: AAOx3, CN II-XII grossly intact Psychiatric: cooperative, interactive, following commands ICD10 Worksheet Patient Problems: Problems Problem Status Onset Chest pain Acute CAD - Coronary arteriosclerosis Active Diabetes mellitus type 2 Active Dyslipidemia Active Essential hypertension Active Low back pain Active Replacement of aortic valve Active CHF (congestive heart failure) Acute Chronic Disease Mgmt/Transitional Care Acute Generalized weakness Acute Hematoma of neck Acute Hypertensive urgency Acute Shortness of breath Acute Transient cerebral ischemia Acute Urinary tract infection Acute
[2017-11-14] MEDS ORDERED: CARVEDILOL 6.25 MG TAB ONE (13:54)
[2017-11-14] MEDS: POTASSIUM CL 20 MEQ/15 ML UDCUP PO SCH (14:10)
[2017-11-14] MEDS: ATORVASTATIN CALCIUM 20 MG TAB PO SCH (14:11)
[2017-11-14] MEDS: ASPIRIN 325 MG TAB PO SCH (14:11)
[2017-11-14] MEDS: CARVEDILOL 6.25 MG TAB PO SCH (14:11)
--- NOTE | 2017-11-14 15:18 | HOSPPROG ---
Hospitalist Progress Note Assessment/Plan: * Chest pain -d/w Dr. Juju Gallardo stress test in am * CAD/CABG 2010 -ASA, beta-dusty, statin * s/p bioprosthetic AVR * PAF s/p MAZE -ASA only due to gait instability * Acute on chronic diastolic CHF -edema predominant LLE since vein harvest for CABG -continue Lasix * PVD s/p bilateral CEA * Morbid obesity BMI 41 * Chronic respiratory failure 3L * FRANKO/CPAP * DM - diet Subjective: No recurrence of CP. Non-pleuritic. No SOB. Objective: Vital Signs Temp Pulse Resp BP Pulse Ox 37.1 C 60 15 123/63 H 99 11/14/17 15:11 11/14/17 15:11 11/14/17 15:11 11/14/17 15:11 11/14/17 15:11 Laboratory Results 11/14/17 03:30 11/14/17 03:30 11/13/17 11/14/17 11/15/17 05:59 05:59 05:59 Intake Total 0 Balance 0 CXR - negative - Physical Exam Constitutional: no apparent distress, appears nourished, not in pain Cardiovascular: regular rate and rhythym, no murmur, rub, or gallop, edema (left ) Respiratory: no respiratory distress, no rales or rhonchi, clear to auscultation Gastrointestinal: normoactive bowel sounds, soft, non-tender abdomen, no palpable masses Skin: no rashes or abrasions, no fluctuance, no induration Neurologic: AAOx3, sensation intact bilaterally Psychiatric: interacting appropriately, not anxious, not encephalopathic, thought process linear ICD10 Worksheet Patient Problems: Problems Problem Status Onset Chest pain Acute CAD - Coronary arteriosclerosis Active Diabetes mellitus type 2 Active Dyslipidemia Active Essential hypertension Active Low back pain Active Replacement of aortic valve Active CHF (congestive heart failure) Acute Chronic Disease Mgmt/Transitional Care Acute Generalized weakness Acute Hematoma of neck Acute Hypertensive urgency Acute Shortness of breath Acute Transient cerebral ischemia Acute Urinary tract infection Acute
--- NOTE | 2017-11-14 16:12 | ASMTCMCOM ---
CM Note CM Note Notes: Pt. is a 81-year-old woman admitted with chest pain. Hx. of open heart surgery in 2010. Pt. w/ four adult children. Dtr lives "one mile away". Pt. lives alone. Pt. to have a stress test tomorrow. Please consult PT/OT recommendations. CM to follow. Date Signed: 11/14/2017 04:11 PM Electronically Signed By:Charu Crouch LCSW
--- NOTE | 2017-11-14 16:58 | PDMN ---
Medical Necessity Medical necessity: C/M review: est. > 2 MN LOS for eval and TX of acute chest pain, acute on chronic diastolic CHF requiring Cardiology consult, planned 2017 Lexiscan stress test, ongoing continue oral Lasix, cardiac monitoring, pulse oximetry, supplemental O2, comorbid CAD / CABG in 2010, aortic stenosis S/ P bioprosthetic AVR, paroxysmal atrial fibrillation S/P MAZE, gait instability, edema predominant left lower extremity since vein harvest for CABG, peripheral vascular disease S/P bilateral CEA, morbid obesity, chronic respiratory failure on chronic O2 3L/min., obstructive sleep apnea on CPAP, diabetes per 11/14/2017 Hospitalist progress note.
[2017-11-15] MEDS ORDERED: REGADENOSON 0.4 MG/5 ML SYR IVP ONE (08:55)
--- NOTE | 2017-11-15 10:39 | PDCARST ---
CAR Stress Test Results Type of Stress Test: Adenosine cardiolite Indication: Feeling of unwell, ?angina Description of Procedure: Normal SR at baseline with non specific ST T changes. As per protocol infusion started. Pt tolerated it well hemodynamically. No St T changes noted. No evidence of ischemia. No symptoms noted. Impression: EKG portion is negative for ischemia. Await imaging results Conclusion: As above
[2017-11-15] MEDS: ASPIRIN 325 MG TAB PO SCH (13:16)
[2017-11-15] MEDS: FUROSEMIDE 40 MG TAB PO SCH (13:16)
[2017-11-15] MEDS: CARVEDILOL 6.25 MG TAB PO SCH ×2 (13:16→17:30)
[2017-11-15] MEDS: LOSARTAN POTASSIUM 25 MG TAB PO SCH (13:17)
[2017-11-15] MEDS: ATORVASTATIN CALCIUM 20 MG TAB PO SCH (13:17)
[2017-11-15] MEDS: PANTOPRAZOLE SODIUM 40 MG TAB PO SCH (13:17)
[2017-11-15] MEDS: POTASSIUM CL 20 MEQ/15 ML UDCUP PO SCH (13:17)
[2017-11-15] MEDS: ENOXAPARIN 40 MG/0.4 ML SYR SC SCH ×2 (13:43→22:03)
--- NOTE | 2017-11-15 14:53 | ASMTCMCOM ---
CM Note CM Note Notes: 11/15/2017 Case Management Note PT is recommending home independent. Pt has strong family support. There were no other case management d/c needs identified. Case Management d/c poc: home independent with follow up as directed. Case Management available if needs change. Date Signed: 11/15/2017 02:53 PM Electronically Signed By:Deepa Madden RN
--- NOTE | 2017-11-15 15:12 | HOSPPROG ---
Hospitalist Progress Note Assessment/Plan: # chest pain - stress images abnormal, resting images tomorrow - appreciate cards assistance # CAD/CABG 2010 - asa, beta-dusty, statin # s/p bioprosthetic AVR # PAF s/p MAZE - asa with fall risk * Acute on chronic diastolic CHF -edema predominant LLE since vein harvest for CABG -continue lasix, compression boots # PVD.carotid stenosis s/p bilateral CEA # morbid obesity BMI 41 # chronic respiratory failure on 3L O2 # FRANKO on CPAP # DM - diet controlled Subjective: no recurrence of CP Objective: Vital Signs Temp Pulse Resp BP Pulse Ox 36.4 C 75 24 H 111/76 95 11/15/17 15:05 11/15/17 15:05 11/15/17 15:05 11/15/17 15:05 11/15/17 15:05 11/14/17 11/15/17 11/16/17 05:59 05:59 05:59 Intake Total 300 Output Total 50 550 Balance 250 -550 chart reviewed ECG personally reviewed - Physical Exam Constitutional: no apparent distress, obese Cardiovascular: regular rate and rhythym, systolic murmur, No irregularly irregular, No diastolic murmur Respiratory: clear to auscultation Gastrointestinal: soft, non-tender abdomen, no palpable masses ICD10 Worksheet Patient Problems: Problems Problem Status Onset CAD - Coronary arteriosclerosis Active Replacement of aortic valve Active Diabetes mellitus type 2 Active Essential hypertension Active Dyslipidemia Active Low back pain Active Chronic Disease Mgmt/Transitional Care Acute Transient cerebral ischemia Acute Hematoma of neck Acute Hypertensive urgency Acute Urinary tract infection Acute Generalized weakness Acute Shortness of breath Acute CHF (congestive heart failure) Acute Chest pain Acute
[2017-11-16 07:49] VITALS: TEMP 98.2
[2017-11-16] MEDS: LOSARTAN POTASSIUM 25 MG TAB PO SCH (09:11)
[2017-11-16] MEDS: ASPIRIN 325 MG TAB PO SCH (09:11)
[2017-11-16] MEDS: CARVEDILOL 6.25 MG TAB PO SCH ×2 (09:11→18:55)
[2017-11-16] MEDS: ATORVASTATIN CALCIUM 20 MG TAB PO SCH (09:11)
[2017-11-16] MEDS: PANTOPRAZOLE SODIUM 40 MG TAB PO SCH (09:11)
[2017-11-16] MEDS: FUROSEMIDE 40 MG TAB PO SCH (09:11)
[2017-11-16] MEDS: ENOXAPARIN 40 MG/0.4 ML SYR SC SCH (09:12)
[2017-11-16] MEDS: POTASSIUM CL 20 MEQ/15 ML UDCUP PO SCH (09:12)
[2017-11-16] MEDS ORDERED: NITROGLYCERIN 0.4 MG BTL SL ONE (09:19)
--- NOTE | 2017-11-16 09:25 | CPEKG ---
Heart Rate: 67 RR Interval: 896 P-R Interval: 180 QRSD Interval: 110 QT Interval: 440 QTC Interval: 465 P [place]: 35 QRS [place]: 38 T Wave [place]: -26 EKG Severity - ABNORMAL ECG - EKG Impression: SINUS RHYTHM EKG Impression: NONSPECIFIC INTRAVENTRICULAR CONDUCTION DELAY EKG Impression: INFERIOR INFARCT, AGE INDETERMINATE Electronically Signed By: Sachin Ortega 16-Nov-2017 09:36:34
[2017-11-16 11:00] VITALS: PULSE 63; RESP 20; O2SAT 96
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
--- NOTE | 2017-11-16 16:40 | ASDISCHSUM ---
Discharge Information Plan Status:Home with No Needs Medically Cleared to Leave:11/16/2017 Discharge Date:11/16/2017 CM D/C Disposition:Home, Routine, Self-Care ADT D/C Disposition:Home, Routine, Self-Care Projected Discharge Date:11/16/2017 Transportation at D/C: Discharge Delay Reason: Follow-Up Date:11/16/2017 Discharge Slot: Final Diagnosis: Placement Information Patient Contact Information Contact Name:TERRI Relationship:Daughter Address:[address] City:[place] [facility] Phone: [facility]/Zip Code:[place] [address] Email: Financial Information Financial Class:Medicare Primary Plan Desc:MEDICARE INPATIENT Primary Plan Number:[id number] Secondary Plan Desc:[place] Secondary Plan Number:[id number] Assessment Information [facility] CM Progress Note CM Note CM Note Notes: Pt. is a 81-year-old woman admitted with chest pain. Hx. of open heart surgery in 2010. Pt. w/ four adult children. Dtr lives "one mile away". Pt. lives alone. Pt. to have a stress test tomorrow. Please consult PT/OT recommendations. CM to follow. Date Signed: 11/14/2017 04:11 PM Electronically Signed By:Charu Crouch LCSW LACE LACE Length of stay for Answers: 2 days current admission Acuity / Level of Answers: Yes Care: Did the patient have an inpatient admission? Comorbidities - select Answers: Cerebrovascular disease all that apply (CVA, TIA, aneurysms, vasc ular dementia) Chronic pulmonary disease Congestive heart failure Coronary Artery Disease Diabetes (uncontrolled or controlled) Other Notes: HTN, hyperlipidemia, af ib with MAZE procedure, morbid obesi ty # of Emergency department Answers: 3-4 visits in the last 6 months Score: 17 Date Signed: 11/16/2017 04:39 PM Electronically Signed By:Deepa Madden RN [facility] CM Progress Note CM Note CM Note Notes: 11/15/2017 Case Management Note PT is recommending home independent. Pt has strong family support. There were no other case management d/c needs identified. Case Management d/c poc: home independent with follow up as directed. Case Management available if needs change. Date Signed: 11/15/2017 02:53 PM Electronically Signed By:Deepa Madden RN Intervention Information Intervention Type:*IM-Signed Date of Service:11/16/2017 03:50 PM Patient Type:Inpatient Staff Member:Laurence Horner Hours: Discipline: Severity: Comment:
[2017-11-16 18:58] VITALS: BP 123/62
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
== END 2017-11-16 19:12 | disposition home or self-care (01) | DRG 313 ==
LOC: CED 21:25 → CEDHOLD 22:36 → INTOOBSV 22:36 → F2W 11-14 00:01 → OBSVTOIN 11-14 15:11
PROVIDERS: ADMIT Student in an Organized Health Care Education/Training Program; ATTEND Student in an Organized Health Care Education/Training Program
DX: R07.89 Other chest pain (principal); I11.0 Hypertensive heart disease with heart failure; I50.33 Acute on chronic diastolic (congestive) heart failure; J96.10 Chronic respiratory failure, unspecified whether with hypoxia or hypercapnia; Z68.41 Body mass index [BMI] 40.0-44.9, adult; M94.0 Chondrocostal junction syndrome [Tietze]; I25.10 Atherosclerotic heart disease of native coronary artery without angina pectoris; I48.0 Paroxysmal atrial fibrillation; I73.9 Peripheral vascular disease, unspecified; E66.01 Morbid (severe) obesity due to excess calories; G47.33 Obstructive sleep apnea (adult) (pediatric); E78.5 Hyperlipidemia, unspecified; E11.9 Type 2 diabetes mellitus without complications; Z87.891 Personal history of nicotine dependence; Z95.1 Presence of aortocoronary bypass graft; Z95.3 Presence of xenogenic heart valve
CPT/HCPCS: 71046-PO; 80048-PO; 83880-PO; 84484-PO; 85025-PO; 96374; 97116-GP; 97161-GP; 97165-GO; 97530-GO; 97530-GP; 97535-GO; A9500; G0378; G8978-GP-CI; G8979-GP-CI; G8980-GP-CI; G8987-GO-CI; G8988-GO-CI; J1650; J2405; J2785